=== PATIENT | female | born 1990 | race Caucasian/White ===

== ENCOUNTER 2019-12-12 12:25 | Emergency (ER) | payer BC, SELFPAY ==
[2019-12-12 12:52] VITALS: BP 117/75; PULSE 77; RESP 16; TEMP 36.7; O2SAT 98
--- NOTE | 2019-12-12 13:10 | ED.URI ---
HPI - URI/Sore Throat General Chief Complaint: Upper Respiratory Infection Stated Complaint: Cold/Flu symptoms Time Seen by Provider: 12/12/19 13:10 Source: patient and RN notes reviewed Mode of arrival: ambulatory Limitations: no limitations History of Present Illness HPI Narrative: 29-year-old female who presents to [facility] care with complaints of sore throat, nasal congestion and drainage, chills, and body aches since Monday and low grade temperature. Today cough with nausea and diarrhea, 101F fever noted this morning. 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 Patient states she has been taking ibuprofen and DayQuil for her symptoms. Patient denies any ear pain or acute shortness of breath, denies any wheezing, admits to tobacco abuse of 1/2 ppd of cigarettes daily for 15 years. MD elicited complaint: fever, cough, sore throat, rhinorrhea and nasal congestion Onset (ago): day(s) (2) Consistency: progressively worsening Able to tolerate fluids by mouth: Yes Exacerbating factors: swallowing Treatments prior to arrival: ibuprofen and other (Dauquil) Related Data Home Medications Medication Instructions Recorded Confirmed etonogestrel-ethinyl estradiol 1 vag ring VAGINAL ONCE 12/12/19 12/12/19 [NuvaRing] Allergies Allergy/AdvReac Type Severity Reaction Status Date / Time latex Allergy Rash Verified 12/12/19 13:32 clindamycin AdvReac Headache Verified 12/12/19 13:31 Penicillins AdvReac MOUTH SORES Verified 12/12/19 13:34 Review of Systems Review of Systems: Narrative: CONSTITUTIONAL: reports fever, chills, or sweats. EYES: Denies visual changes, redness, or discharge. ENT: Positive rhinorrhea, congestion, sore throat, no otalgia. CARDIOVASCULAR: Denies chest pain, palpitations, or edema. RESPIRATORY Positive cough denies dyspnea. GASTROINTESTINAL: Denies abdominal pain,reports nausea, and diarrhea. GENITOURINARY: Denies dysuria or hematuria. SKIN: Denies rash or itching. MUSCULOSKELETAL: Denies back pain, joint pain, bodyaches NEUROLOGIC: Denies headache, numbness, or weakness. PSYCHIATRIC: Denies anxiety or depression. 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 There is no relevant family history pertinent to the presenting complaint Exam Narrative: Exam Narrative: GENERAL ill-appearing, well-nourished, and in no acute distress. HEAD: Normocephalic, atraumatic. EYES: PERRLA and EOMI. ENT: Nares red wit rhinorrhea no epistaxis. Mucous membranes moist.TM's normal with goodlight reflex, throat red with no lesions or exudates,tonsil swelling, post nasal drainage noted NECK: Supple, lymphadenopathy CHEST: Clear to auscultation. No respiratory distress.dry cough SAO2 98% on room air HEART: Regular rate and rhythm. No murmur heard. Normal peripheral pulses. ABDOMEN: Soft, nontender to palpation, nondistended, normal active bowel sounds. EXTREMITIES: Normal range of motion. No edema. SKIN: Warm, dry, no rash. NEURO: No focal deficits. Alert and oriented x3. Course Vital Signs Vital signs: Vital Signs Temperature 36.7 C 12/12/19 12:52 Pulse Rate 77 12/12/19 12:52 R
== END 2019-12-12 14:03 | disposition home or self-care (01) ==
PROVIDERS: Emergency Provider Registered Nurse
DX: J03.90 Acute tonsillitis, unspecified (principal); R05 Cough; R11.0 Nausea; R19.7 Diarrhea, unspecified; F17.210 Nicotine dependence, cigarettes, uncomplicated
CPT/HCPCS: 87081; 87804; 87880; 99213; G0463

== ENCOUNTER 2021-02-05 11:06 | Outpatient (CLI) | payer BC, SELFPAY ==
[2021-02-05 11:32] VITALS: BP 130/79; PULSE 91; PULSE 93; TEMP 36.2
--- NOTE | 2021-02-05 11:41 | PC.NURSE ---
Dr. Hinkle informed of pt's symptoms from this week, BP 131/79, 2+ pitting edema in ankles, FHT's 145 with 10 beat accels at 22 2/7 wks gestation. OK to discharge to home. Pt to be seen in office next week if she hasn't been seen recently.
[2021-02-05 11:52] VITALS: BP 130/79; PULSE 93
== END 2021-02-05 12:07 | disposition home or self-care (01) ==
LOC: ANHOBOP 11:11 → ANHOBPP 11:11
PROVIDERS: PCP Nurse Practitioner Family; Visit Provider Obstetrics & Gynecology
DX: O13.9 Gestational [pregnancy-induced] hypertension without significant proteinuria, unspecified trimester (principal); R51.9 Headache, unspecified; Z3A.00 Weeks of gestation of pregnancy not specified
CPT/HCPCS: 59025; 99199

== ENCOUNTER 2021-05-03 15:19 | Outpatient (RCR) | payer BC, SELFPAY ==
[2021-03-15 14:51] LABS: Basophils Percent Auto 0.2 % (0.2-1.2); Eosinophils Percent Auto 0.2 % (0-4.4); Hematocrit 32.9 % (37.0-47.0); Hemoglobin 11.3 g/dL (12.0-15.0); Immature Granulocyte Absolute 0.22 K/mm3 (0.00-0.031); Immature Granulocyte Percent A 1.4 % (0-0.5); Lymphocytes Absolute Auto 2.51 K/mm3 (0.9-3.2); Lymphocytes Percent Auto 15.6 % (18.3-44.2); Mean Corpuscular HGB Conc 34.3 g/dl (32-36); Mean Corpuscular Hemoglobin 31.7 pg (26-34); Mean Corpuscular Volume 92.2 fl (80-100); Mean Platelet Volume 10.7 fl (7.4-10.4); Monocytes Absolute Auto 1.2 K/mm3 (0.1-0.6); Monocytes Percent Auto 7.3 % (2.6-8.5); Neutrophils Absolute Auto 12.1 K/mm3 (1.3-6.7); Neutrophils Percent Auto 75.3 % (45.5-73.1); Platelet Count Result 222 k/mm3 (150-375); Red Blood Count 3.57 M/mm3 (4.2-5.4); Red Cell Distribution Width 12.7 % (11.5-14.5); White Blood Count 16.1 K/mm3 (4.5-10.0)
[2021-03-15 15:00] LABS: Alanine Aminotransferase 11 U/L (4-35); Albumin Level 3.5 g/dL (3.5-5.1); Alkaline Phosphatase 115 U/L (38-126); Anion Gap 8 mmol/L (8-16); Aspartate Amino Transferase 18 U/L (14-36); Bilirubin,Total 0.2 mg/dL (0.2-1.3); Blood Urea Nitrogen 6 mg/dL (7-17); Calcium 8.8 mg/dL (8.4-10.2); Carbon Dioxide 20 mmol/L (22-30); Chloride 108 mmol/L (98-107); Estimated Glomerular Filt Rate > 60; Glucose 104 mg/dL (65-105); Potassium 3.3 mmol/L (3.4-5.0); Sodium 136 mmol/L (137-145); Uric Acid 3.5 mg/dL (2.5-7.5)
[2021-03-15 15:07] VITALS: PULSE 85
--- NOTE | 2021-03-18 01:14 | PC.NURSE ---
Pt stated on admission that she had decreased movement all day and had not felt moment for past 2 hours. Pt began to feel movement after arrival with PO hydration. Pt vital signs as noted. Pt states she has appt with Maternal Medicine for elevated blood pressures. Has been getting NST's for same.
[2021-03-22 14:48] LABS: Hematocrit 32.3 % (37.0-47.0); Hemoglobin 11.2 g/dL (12.0-15.0); Mean Corpuscular HGB Conc 34.7 g/dl (32-36); Mean Corpuscular Hemoglobin 31.5 pg (26-34); Mean Platelet Volume 10.2 fl (7.4-10.4); Platelet Count Result 223 k/mm3 (150-375); Red Blood Count 3.55 M/mm3 (4.2-5.4); Red Cell Distribution Width 12.3 % (11.5-14.5)
[2021-03-22 15:00] LABS: Alanine Aminotransferase 13 U/L (4-35); Albumin Level 3.5 g/dL (3.5-5.1); Alkaline Phosphatase 115 U/L (38-126); Anion Gap 9 mmol/L (8-16); Aspartate Amino Transferase 23 U/L (14-36); Bilirubin,Total 0.2 mg/dL (0.2-1.3); Blood Urea Nitrogen 7 mg/dL (7-17); Calcium 9.2 mg/dL (8.4-10.2); Carbon Dioxide 20 mmol/L (22-30); Chloride 106 mmol/L (98-107); Estimated Glomerular Filt Rate > 60; Glucose 74 mg/dL (65-105); Potassium 3.2 mmol/L (3.4-5.0); Sodium 135 mmol/L (137-145); Uric Acid 3.4 mg/dL (2.5-7.5)
[2021-03-22 16:08] VITALS: BP 127/85; PULSE 106
[2021-03-29 15:31] LABS: Hematocrit 32.7 % (37.0-47.0); Hemoglobin 11.2 g/dL (12.0-15.0); Mean Corpuscular HGB Conc 34.3 g/dl (32-36); Mean Corpuscular Hemoglobin 31.5 pg (26-34); Mean Corpuscular Volume 92.1 fl (80-100); Mean Platelet Volume 10.9 fl (7.4-10.4); Platelet Count Result 217 k/mm3 (150-375); Red Blood Count 3.55 M/mm3 (4.2-5.4); Red Cell Distribution Width 12.5 % (11.5-14.5); White Blood Count 15.8 K/mm3 (4.5-10.0)
[2021-03-29 15:40] LABS: Alanine Aminotransferase 14 U/L (4-35); Albumin Level 3.6 g/dL (3.5-5.1); Alkaline Phosphatase 130 U/L (38-126); Anion Gap 6 mmol/L (8-16); Aspartate Amino Transferase 24 U/L (14-36); Bilirubin,Total 0.1 mg/dL (0.2-1.3); Blood Urea Nitrogen 5 mg/dL (7-17); Calcium 8.4 mg/dL (8.4-10.2); Carbon Dioxide 21 mmol/L (22-30); Chloride 107 mmol/L (98-107); Estimated Glomerular Filt Rate > 60; Glucose 95 mg/dL (65-105); Potassium 3.5 mmol/L (3.4-5.0); Sodium 134 mmol/L (137-145); Uric Acid 2.9 mg/dL (2.5-7.5)
[2021-03-29 16:33] VITALS: BP 126/86; PULSE 93
[2021-04-05 15:02] LABS: Hematocrit 30.4 % (37.0-47.0); Hemoglobin 10.9 g/dL (12.0-15.0); Mean Corpuscular HGB Conc 35.9 g/dl (32-36); Mean Corpuscular Hemoglobin 31.8 pg (26-34); Mean Corpuscular Volume 88.6 fl (80-100); Mean Platelet Volume 10.3 fl (7.4-10.4); Platelet Count Result 216 k/mm3 (150-375); Red Blood Count 3.43 M/mm3 (4.2-5.4); Red Cell Distribution Width 12.5 % (11.5-14.5); White Blood Count 15.5 K/mm3 (4.5-10.0)
[2021-04-05 15:10] LABS: Alanine Aminotransferase 11 U/L (4-35); Albumin Level 3.4 g/dL (3.5-5.1); Alkaline Phosphatase 129 U/L (38-126); Anion Gap 5 mmol/L (8-16); Aspartate Amino Transferase 18 U/L (14-36); Bilirubin,Total 0.1 mg/dL (0.2-1.3); Blood Urea Nitrogen 4 mg/dL (7-17); Calcium 8.7 mg/dL (8.4-10.2); Carbon Dioxide 20 mmol/L (22-30); Chloride 108 mmol/L (98-107); Estimated Glomerular Filt Rate 53; Glucose 108 mg/dL (65-105); Potassium 3.3 mmol/L (3.4-5.0); Sodium 133 mmol/L (137-145); Uric Acid 3.5 mg/dL (2.5-7.5)
[2021-04-05 15:51] LABS: Estimated Glomerular Filt Rate > 60
[2021-04-05 16:00] VITALS: BP 126/76; PULSE 87
[2021-04-12 14:53] LABS: Basophils Percent Auto 0.2 % (0.2-1.2); Eosinophils Absolute Auto 0.1 K/mm3 (0-0.3); Eosinophils Percent Auto 0.4 % (0-4.4); Hematocrit 32.8 % (37.0-47.0); Hemoglobin 11.4 g/dL (12.0-15.0); Immature Granulocyte Absolute 0.21 K/mm3 (0.00-0.031); Immature Granulocyte Percent A 1.3 % (0-0.5); Lymphocytes Absolute Auto 2.34 K/mm3 (0.9-3.2); Lymphocytes Percent Auto 14.5 % (18.3-44.2); Mean Corpuscular HGB Conc 34.8 g/dl (32-36); Mean Corpuscular Hemoglobin 31.7 pg (26-34); Mean Corpuscular Volume 91.1 fl (80-100); Mean Platelet Volume 10.6 fl (7.4-10.4); Monocytes Absolute Auto 1.1 K/mm3 (0.1-0.6); Monocytes Percent Auto 6.8 % (2.6-8.5); Neutrophils Absolute Auto 12.3 K/mm3 (1.3-6.7); Neutrophils Percent Auto 76.8 % (45.5-73.1); Platelet Count Result 226 k/mm3 (150-375); Red Cell Distribution Width 12.5 % (11.5-14.5); White Blood Count 16.1 K/mm3 (4.5-10.0)
[2021-04-12 15:06] LABS: Alanine Aminotransferase 12 U/L (4-35); Albumin Level 3.6 g/dL (3.5-5.1); Alkaline Phosphatase 148 U/L (38-126); Anion Gap 8 mmol/L (8-16); Aspartate Amino Transferase 20 U/L (14-36); Bilirubin,Total 0.3 mg/dL (0.2-1.3); Blood Urea Nitrogen 6 mg/dL (7-17); Calcium 9.1 mg/dL (8.4-10.2); Carbon Dioxide 19 mmol/L (22-30); Chloride 108 mmol/L (98-107); Estimated Glomerular Filt Rate > 60; Glucose 121 mg/dL (65-105); Potassium 3.4 mmol/L (3.4-5.0); Sodium 135 mmol/L (137-145); Uric Acid 4.5 mg/dL (2.5-7.5)
[2021-04-12 16:22] VITALS: BP 130/81; PULSE 104
[2021-04-19 15:09] VITALS: BP 137/84; PULSE 104
[2021-04-19 15:24] LABS: Hematocrit 31.4 % (37.0-47.0); Hemoglobin 10.9 g/dL (12.0-15.0); Mean Corpuscular HGB Conc 34.7 g/dl (32-36); Mean Corpuscular Hemoglobin 31.5 pg (26-34); Mean Corpuscular Volume 90.8 fl (80-100); Mean Platelet Volume 10.4 fl (7.4-10.4); Platelet Count Result 214 k/mm3 (150-375); Red Blood Count 3.46 M/mm3 (4.2-5.4); Red Cell Distribution Width 12.7 % (11.5-14.5); White Blood Count 16.6 K/mm3 (4.5-10.0)
[2021-04-19 15:37] LABS: Alanine Aminotransferase 11 U/L (4-35); Albumin Level 3.5 g/dL (3.5-5.1); Alkaline Phosphatase 145 U/L (38-126); Anion Gap 6 mmol/L (8-16); Aspartate Amino Transferase 18 U/L (14-36); Bilirubin,Total 0.2 mg/dL (0.2-1.3); Blood Urea Nitrogen 6 mg/dL (7-17); Calcium 9.5 mg/dL (8.4-10.2); Carbon Dioxide 21 mmol/L (22-30); Chloride 107 mmol/L (98-107); Estimated Glomerular Filt Rate > 60; Glucose 102 mg/dL (65-105); Potassium 3.3 mmol/L (3.4-5.0); Sodium 134 mmol/L (137-145); Uric Acid 3.8 mg/dL (2.5-7.5)
[2021-04-26 14:57] LABS: Hematocrit 31.7 % (37.0-47.0); Mean Corpuscular HGB Conc 34.7 g/dl (32-36); Mean Corpuscular Hemoglobin 31.3 pg (26-34); Mean Corpuscular Volume 90.1 fl (80-100); Mean Platelet Volume 10.7 fl (7.4-10.4); Platelet Count Result 227 k/mm3 (150-375); Red Blood Count 3.52 M/mm3 (4.2-5.4); Red Cell Distribution Width 12.5 % (11.5-14.5); White Blood Count 14.8 K/mm3 (4.5-10.0)
[2021-04-26 15:08] LABS: Alanine Aminotransferase 12 U/L (4-35); Albumin Level 3.5 g/dL (3.5-5.1); Alkaline Phosphatase 163 U/L (38-126); Anion Gap 6 mmol/L (8-16); Aspartate Amino Transferase 18 U/L (14-36); Bilirubin,Total 0.3 mg/dL (0.2-1.3); Blood Urea Nitrogen 5 mg/dL (7-17); Calcium 8.8 mg/dL (8.4-10.2); Carbon Dioxide 22 mmol/L (22-30); Chloride 105 mmol/L (98-107); Estimated Glomerular Filt Rate > 60; Glucose 104 mg/dL (65-110); Potassium 3.3 mmol/L (3.4-5.0); Sodium 133 mmol/L (137-145); Uric Acid 3.5 mg/dL (2.5-7.5)
[2021-04-26 15:18] VITALS: BP 135/84; PULSE 96
[2021-05-03 15:36] LABS: Basophils Percent Auto 0.2 % (0.2-1.2); Eosinophils Absolute Auto 0.1 K/mm3 (0-0.3); Eosinophils Percent Auto 0.3 % (0-4.4); Hematocrit 33.5 % (37.0-47.0); Hemoglobin 11.7 g/dL (12.0-15.0); Immature Granulocyte Absolute 0.14 K/mm3 (0.00-0.031); Lymphocytes Percent Auto 18.4 % (18.3-44.2); Mean Corpuscular HGB Conc 34.9 g/dl (32-36); Mean Corpuscular Hemoglobin 31.5 pg (26-34); Mean Corpuscular Volume 90.1 fl (80-100); Mean Platelet Volume 10.5 fl (7.4-10.4); Monocytes Absolute Auto 1.2 K/mm3 (0.1-0.6); Monocytes Percent Auto 8.3 % (2.6-8.5); Neutrophils Absolute Auto 10.6 K/mm3 (1.3-6.7); Neutrophils Percent Auto 71.8 % (45.5-73.1); Platelet Count Result 208 k/mm3 (150-375); Red Blood Count 3.72 M/mm3 (4.2-5.4); Red Cell Distribution Width 12.6 % (11.5-14.5); White Blood Count 14.7 K/mm3 (4.5-10.0)
[2021-05-03 15:48] LABS: Alanine Aminotransferase 14 U/L (4-35); Albumin Level 3.5 g/dL (3.5-5.1); Alkaline Phosphatase 170 U/L (38-126); Anion Gap 5 mmol/L (8-16); Aspartate Amino Transferase 22 U/L (14-36); Bilirubin,Total 0.3 mg/dL (0.2-1.3); Blood Urea Nitrogen 5 mg/dL (7-17); Calcium 9.3 mg/dL (8.4-10.2); Carbon Dioxide 21 mmol/L (22-30); Chloride 107 mmol/L (98-107); Estimated Glomerular Filt Rate > 60; Glucose 80 mg/dL (65-110); Potassium 3.9 mmol/L (3.4-5.0); Sodium 133 mmol/L (137-145)
[2021-05-03 15:49] LABS: Uric Acid 3.9 mg/dL (2.5-7.5)
[2021-05-03 15:59] VITALS: BP 134/86; PULSE 89
== END 2021-05-17 10:26 | disposition home or self-care (01) ==
LOC: ANHOBOP 15:19
PROVIDERS: PCP Nurse Practitioner Family; Visit Provider Obstetrics & Gynecology
DX: O16.2 Unspecified maternal hypertension, second trimester (principal); Z3A.27 27 weeks gestation of pregnancy; O36.8130 Decreased fetal movements, third trimester, not applicable or unspecified; Z3A.28 28 weeks gestation of pregnancy; O26.893 Other specified pregnancy related conditions, third trimester; R03.0 Elevated blood-pressure reading, without diagnosis of hypertension; Z3A.29 29 weeks gestation of pregnancy; Z3A.30 30 weeks gestation of pregnancy; Z3A.31 31 weeks gestation of pregnancy; Z3A.32 32 weeks gestation of pregnancy; Z3A.33 33 weeks gestation of pregnancy; Z3A.34 34 weeks gestation of pregnancy
CPT/HCPCS: 36415; 59025; 80053; 82565; 84550; 85025; 85027

== ENCOUNTER 2021-05-05 14:54 | Inpatient (IN) | payer BC, SELFPAY ==
[2021-05-05] VITALS (95 sets, daily range): BP systolic 122–160; BP diastolic 71–99; PULSE 77–113; RESP 16–18; TEMP 37–37.3; O2SAT 92–98; BMI 30.2
--- NOTE | 2021-05-05 14:54 | LDADM ---
This patient, Toño Figueroa, was admitted to Labor/Delivery/Recovery 109 on 05/05/21 at 14:54. Plans for labor, pain management and were discussed with patient. Patient/family oriented to hospital policies and general routines including ID bracelet, bed and alarms, visiting hours, pain management, procedures, bathroom and other care routines, personal items, smoking policy, room service/diet and guest tray routines, security routines, and visiting hours. Patient/Family are encouraged to report perceived risks to care and to ask questions if they do not understand what they are told or what they should do. See OBIX for further documentation.
--- OUTSIDE RECORDS SUMMARY | 2021-05-05 15:01 | XMS_ITS | Encounter Summary ---
:1990 Author Care Team Providers Name Role Phone Toney Saldaña MD Poultry Picking Machine Tender [phone] Reason for Visit return OB visit Assessment and Plan 1. Pre-eclampsia Discussion Note: None recorded.Patient educational handouts: No information available. Plan of Care Reminders Provider Appointments Procedure 10 Kenrick Ibanez MD 05/19/2021 4:00PM Lab None ? ? recorded. Referral None ? ? recorded. Procedures None ? ? recorded. Surgeries None ? ? recorded. Imaging None ? ? recorded. Medications Name Start Date ? ? ferrous sulfate 325 mg (65 mg iron) tablet ? Take 1 tablet every day by oral route. Purelax 17 gram/dose oral powder ? MIX 17 GRAMS WITH LIQUID AND DRINK ONCE DAILY FOR 30 DOSES FOR CONSTIPATION sertraline 50 mg tablet ? TAKE 1 TABLET BY MOUTH EVERY DAY Stool Softener 100 mg capsule ? TAKE 1 CAPSULE BY MOUTH TWICE A DAY FOR 30 DOSES FOR CONSTIPATION Notes: PNV Medications Administered None recorded. Vitals Weight Blood Pressure 169 lbs 142/92 mm[Hg] Results Lab Results None recorded. Allergies Code Code System Name Reaction Severity Onset 723 RxNorm
--- OUTSIDE RECORDS SUMMARY | 2021-05-05 15:01 | XMS_ITS ---
:1990 Author Care Team Providers Name Role Phone DANYELLE JACKSON MD Infection Control Manager [phone] Allergies Code Code System Name Reaction Severity Status Onset 723 RxNorm Amoxicillin ? ? Active ? 2582 RxNorm Clindamycin ? ? Active ? Latex, Natural Facial ? Active ? Rubber Swelling Penicillins Other Moderate to Active ? Severe 078459 RxNorm [place] ? ? Deactivated ? Medications Name Status Start Date Stop Date ? ? acetaminophen 300 mg-codeine 30 mg Completed ? 05/02/2018 tablet albuterol sulfate HFA 90 mcg/actuation aerosol inhaler Active ? Not available INHALE 2 PUFFS BY MOUTH TWICE DAILY azithromycin 500 mg tablet Completed ? 05/01 benzonatate 200 mg capsule Active ? Not a vailable TAKE 1 CAPSULE BY MOUTH THREE TIMES A DAY NEEDED cephalexin 500 mg capsule Completed ? 2020 cephalexin 500 mg tablet Completed ? 019 Take 1 tablet 3 times a day by oral route. Chantix Continuing Month Box 1 mg tablet Completed ? 10/05/2020 Take 1 tablet twice a day by oral route. Chantix Starting Month Box 0.5 mg (11)-1 mg (42) tablets in dose pack Active ? Not available TAKE DIRECTED ON PACKAGE ciprofloxacin 500 mg tablet Active ? Not available TAKE 1 TABLET BY MOUTH EVERY 12 HOURS FOR 7 DAYS Claritin 10 mg tablet Completed ? 10/05/2020 Take 1 tablet every day by oral route. clindamycin HCl 300 mg capsule Completed ? 0 05/01/2019
--- OUTSIDE RECORDS SUMMARY | 2021-05-05 15:01 | XMS_ITS | Encounter Summary ---
:1990 Author Care Team Providers Name Role Phone Toney Saldaña MD Package Sorter [phone] Reason for Visit return OB visit Assessment and Plan 1. Routine care ? streptococcus group B, cul ture, unspecified specimen Discussion Note: None recorded.Patient educational handouts: No information available. Plan of Care Reminders Provider Appointments Procedure 10 Kenrick Ibanez, 05/19/2021 4:00PM Lab Streptococcus [facility] Group B, Culture, 04/27/2021 Hospital (Lab) Unspecified Specimen Referral None recorded. ? ? Procedures None recorded. ? ? Surgeries None recorded. ? ? Imaging None recorded. ? ? Medications Name Start Date ? ? ferrous [...] recorded. Vitals Weight Blood Pressure 169 lbs 134/94 mm[Hg] Results
--- OUTSIDE RECORDS SUMMARY | 2021-05-05 15:01 | XMS_ITS ---
:1990 Author Care Team Providers Name Role Phone Toney Saldaña Primary Care Provider Unavailable Allergies Code Code System Name Reaction Severity Status Onset 723 RxNorm Amoxicillin ? ? Active ? 2582 RxNorm Clindamycin ? ? Active ? Latex, Natural Facial ? Active ? Rubber Swelling Penicillins Other Moderate to Active ? Severe 183695 RxNorm [place] ? ? Deactivated ? Medications Name Status Start Date Stop Date ? ? acetaminophen 300 mg-codeine 30 mg Completed ? 05/02/2018 tablet albuterol sulfate HFA 90 mcg/actuation aerosol inhaler Active ? Not available INHALE 2 PUFFS BY MOUTH TWICE DAILY azithromycin 500 mg tablet Completed ? 05/01 azithromycin 500 mg tabs Completed ? 020 benzonatate 200 mg capsule Active ? Not a vailable cephalexin 500 mg caps Completed ? 0 cephalexin 500 mg capsule Completed ? 2018 TAKE 1 CAPSULE BY MOUTH THREE TIMES A DAY cephalexin 500 mg tablet Completed ? 019 Take 1 tablet 3 times a day by oral route. Chantix Continuing Month Box 1 mg tablet Completed ? 10/05/2020 Take 1 tablet twice a day by oral route. Chantix Starting Month Box 0.5 mg (11)-1 mg (42) tablets in dose pack Completed ? 10/05/2020 TAKE DIRECTED ON PACKAGE ciprofloxacin 500 mg tablet Completed ? 04/2020 Claritin 10 mg tablet Completed ? 10/05/2020 Take 1 tablet every day
--- OUTSIDE RECORDS SUMMARY | 2021-05-05 15:01 | XMS_ITS | Encounter Summary ---
:1990 Author Care Team Providers Name Role Phone Toney Saldaña MD Multifocal Button Generator [phone] Reason for Visit return OB visit Assessment and Plan 1. Routine care ? US, obstetric, follow-up 2. Tachycardia ? TSH, serum or plasma ? electrocardiogram ? CMP, serum or plasma ? CBC w/ auto diff ? T4, free, serum ? T3, free, serum or plasma ? protein:creatinine ratio, urine ? ldh, serum or plasma ? uric acid, serum or plasma Discussion Note: None recorded.Patient educational handouts: No information available. Plan of Care Reminders Provider Appointments Procedure 10 Kenrikc Ibanez MD 05/19/2021 4:00PM Lab TSH, Serum or Gat [facility] Plasma 02/11/2021 [facility] (Lab) ? CMP, Serum or Gat [facility] Plasma 02/11/2021 [facility] (Lab) ? CBC W/ Auto Diff [facility] 02/11/2021 [facility] (Lab) ? T4, Free, Serum [place] [facility] 02/11/2021 [facility] (Lab) ? T3, Free, Serum or [facility]
--- OUTSIDE RECORDS SUMMARY | 2021-05-05 15:01 | XMS_ITS | Encounter Summary ---
:1990 Author Care Team Providers Name Role Phone Toney Saldaña MD Satellite Dish Installer [phone] Reason for Visit return OB visit Assessment and Plan 1. Routine care ? glucose tolerance test, ge stational, 1-hour ? CBC ? HIV (1+2) Ab screen, serum 2. Mild pre-eclampsia ? maternal & medicine referral Discussion Note: None recorded.Patient educational handouts: No information available. Plan of Care Reminders Provider Appointments Procedure 10 Kenrick Ibanez MD 05/19/2021 4:00PM Lab Glucose [facility] Tolerance Test, [facility]/2021 [facility] (Lab) Gestational, 1-Hour ? Cbc [facility] 03[facility] (Lab) ? HIV (1+2) Ab [place] [facility] Screen, Serum 03/11/2021 Hospital (Lab) Referral [facility] Referral [facility] Procedures None ? ? recorded. Surgeries None ? ? recorded. Imaging None ? ? recorded. Medications Name Start Date ? ? ferrous sulfat
--- OUTSIDE RECORDS SUMMARY | 2021-05-05 15:01 | XMS_ITS | Encounter Summary ---
:1990 Author Care Team Providers Name Role Phone Toney Saldaña MD Adjuster Electrical Contacts [phone] Reason for Visit return OB visit Assessment and Plan 1. Diabetes mellitus screening ? glucose tolerance test, [facility], 3-hour 2. Pre-eclampsia ? US, obstetric, 3rd trimest er - growth 3. Anemia of ? ferrous sulfate 325 mg (65 mg iron) tablet Discussion Note: None recorded.Patient educational handouts: No information available. Plan of Care Reminders Provider Appointments Procedure 10 Kenrick Ibanez MD 05/19/2021 4:00PM Lab Glucose [facility] Tolerance Test, 03/25/2021 Hospital (Lab) Gestational, 3-Hour Referral None ? ? recorded. Procedures None ? ? recorded. Surgeries None ? ? recorded. Imaging , [facility] Obstetric, 3Rd 03/25/2021 Center Trimester Medications Name Start Date ? ? ferrous [...]
--- OUTSIDE RECORDS SUMMARY | 2021-05-05 15:01 | XMS_ITS | Encounter Summary ---
:1990 Author Care Team Providers Name Role Phone Toney Saldaña MD Promotions Associate [phone] Reason for Visit return OB visit Assessment [...] Administered None recorded. Vitals Weight Blood Pressure 165.4 lbs 120/82 mm[Hg] Results Lab Results None recorded. Allergies Code Code System Name Reaction Severity Onset 723 RxNorm
[2021-05-05 16:00] LABS: Basophils Percent Auto 0.2 % (0.2-1.2); Eosinophils Absolute Auto 0.1 K/mm3 (0-0.3); Eosinophils Percent Auto 0.3 % (0-4.4); Hematocrit 34.2 % (37.0-47.0); Hemoglobin 11.8 g/dL (12.0-15.0); Immature Granulocyte Absolute 0.19 K/mm3 (0.00-0.031); Immature Granulocyte Percent A 1.1 % (0-0.5); Lymphocytes Absolute Auto 2.94 K/mm3 (0.9-3.2); Lymphocytes Percent Auto 16.7 % (18.3-44.2); Mean Corpuscular HGB Conc 34.5 g/dl (32-36); Mean Corpuscular Hemoglobin 31.1 pg (26-34); Mean Platelet Volume 10.9 fl (7.4-10.4); Monocytes Absolute Auto 1.5 K/mm3 (0.1-0.6); Monocytes Percent Auto 8.5 % (2.6-8.5); Neutrophils Absolute Auto 12.9 K/mm3 (1.3-6.7); Neutrophils Percent Auto 73.2 % (45.5-73.1); Platelet Count Result 219 k/mm3 (150-375); Red Cell Distribution Width 12.7 % (11.5-14.5); White Blood Count 17.6 K/mm3 (4.5-10.0)
[2021-05-05] MEDS: DINOPROSTONE 10 MG VAG INSERT VAGINAL (16:07)
[2021-05-05 16:12] LABS: Alanine Aminotransferase 15 U/L (4-35); Albumin Level 3.6 g/dL (3.5-5.1); Alkaline Phosphatase 181 U/L (38-126); Anion Gap 4 mmol/L (8-16); Aspartate Amino Transferase 20 U/L (14-36); Bilirubin,Total 0.3 mg/dL (0.2-1.3); Blood Urea Nitrogen 5 mg/dL (7-17); Calcium 8.9 mg/dL (8.4-10.2); Carbon Dioxide 21 mmol/L (22-30); Chloride 108 mmol/L (98-107); Estimated CRCL calculation 96 ml/min; Estimated Glomerular Filt Rate > 60; Glucose 75 mg/dL (65-110); Potassium 3.8 mmol/L (3.4-5.0); Sodium 133 mmol/L (137-145); Uric Acid 3.9 mg/dL (2.5-7.5)
[2021-05-05] MEDS: BETAMETHASONE SOD PHOS/ACETATE 30 MG/5 ML VIAL 12 MG IM (16:26)
--- NOTE | 2021-05-05 18:38 | PM.IMHP ---
H&P: HPI History of Present Illness Date/Time: 05/05/21 17:58 Toño is a 31yo G 2 P0010 @ 35.0wks (MARIE 06/09/21) who presents to L&D for IOL. She has had pre-eclampsia w/o severe features since 27wks. She has had regular care and MFM co-management. She reported to clinic for routine care today and had two severe range BPs >15minutes apart. She occasionally checks her BP and has been persistently having BPs in 150's/90's. She recently had a growth US w/ MFM and is also now IUGR but has normal dopplers. She has been having routine testing which has been reassuring. She denies any MOREIRA, vision changes, CP, SOB, or RUQ pain. Good movement, irregular contractions. No VB, LOF. Her has been complicated by: - Pre-eclampsia now w/ severe features based on severe range BP's - IUGR; EFW @ 5%ile, normal dopplers - Elevated glucola, refused 3hr OGTT; has intermittently checked BS - Anxiety; on zoloft 50mg daily - Anemia on iron - Tobacco abuser - Itching; bile acids pending Chief Complaint: Severe range BP's in office Review of Systems Review of Systems: All systems reviewed & are unremarkable except as noted in HPI and below (HPI) [facility] Past Medical History Medical History IBS (irritable bowel syndrome) Surgical History Surgical History H/O local excision of skin lesion Social History Social History Smoking packs per day: 0.5 Smoking cigarettes per day: 10.0 Years smoked: 15 Smoking pack-years: 7.50 Smoking status: Current every day smoker Tobacco type: cigarettes Second hand tobacco smoke exposure: Yes 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 Gender identity (if verbalized by the patient): Female Sexual Orientation (if Verbalized by the Patient): Straight or Heterosexual Spiritual care concerns: No Meds Home Medications and Allergies Home Medications Medication Instructions Recorded Confirmed Type PNV cmb#95-ferrous fumarate-FA 1 tablet PO DAILY 04/30/21 07/28/21 History [] sertraline 50 mg PO HS 02/05/21 05/05/21 History Allergies Allergy/AdvReac Type Severity Reaction Status Date / Time latex Allergy Rash Verified 12/12/19 13:32 clindamycin AdvReac Headache Verified 12/12/19 13:31 Penicillins AdvReac MOUTH SORES Verified 12/12/19 13:34 Vital Signs Vital Signs - 24 hr 05/05/21 15:27 05/05/21 15:30 05/05/21 16:30 Pulse Rate 99 100 87 Blood Pressure 154/97 H 150/93 H 151/90 H 05/05/21 17:00 05/05/21 17:30 Pulse Rate 86 86 Blood Pressure 147/92 H 152/87 H Exam Const: General: cooperative, healthy appearing, comfortable and no acute distress Resp: Effort & Inspection: normal respiratory effort and able to speak in complete sentences Cardio: Rate: regular rate GI: Inspection: non-distended GI Palp: No abdominal tenderness and Yes Soft to palpation : Other: FHT's: 130's/mod terrance/ + accels/ no decels - cat 1 TOCO: irregular ctxs Cervix: 1/50/-3 Membranes: intact Presentation: cephalic Skin: General skin exam: normal color Neuro: General: patient oriented x3 Extrem: General: normal to inspection Psych: Appearance: grossly normal Affect: normal affect Attitude: cooperative H&P: Results Labs Labs: Short CBC 05/05/21 Range/Units 15:53 WBC 17.6 H (4.5-10.0) K/mm3 Hgb 11.8 L (12.0-15.0) g/dL Hct 34.2 L (37.0-47.0) % Plt Count 219 (150-375) k/mm3 BMP 05/05/21 15:53 Sodium 133 L Potassium 3.8 Chloride 108 H Carbon Dioxide 21 L BUN 5 L Creatinine 0.70 Glucose 75 Calcium 8.9 Liver Function 05/05/21 Range/Units 15:53 Total Bilirubin 0.3 (0.2-1.3) mg/dL AST 20 (14-36) U/L ALT 15 (4-35) U/L Alkaline Phosphatase 181 H (38-126) U/L Albumin 3.6 (3.5-5.1) g/dL
--- NOTE | 2021-05-05 18:39 | WPDHPUPDATE1 ---
History and Physical Update Update Date/Time: 05/05/21 18:39 History and Physical has been reviewed, including an updated exam of the patient. There are NO changes in the patient's condition. Risks, benefits, and alternatives have been discussed and questions answered. Patient agrees to proceed with procedure.
[2021-05-05] MEDS: LACTATED RINGERS 1,000 ML 125 ML IV CONT (18:43)
[2021-05-05] MEDS: MAGNESIUM SULF 4 GM/WATER100ML 4 GM/100 ML BAG IVPB (18:44)
[2021-05-05] MEDS: MAGNESIUM SULF 20GM/WATER500ML 500 ML 50 MG IV CONT (19:14)
[2021-05-06] VITALS (203 sets, daily range): BP systolic 90–161; BP diastolic 60–98; PULSE 63–112; RESP 16–18; TEMP 36.6–37.3; O2SAT 78–99
[2021-05-06] MEDS: MAGNESIUM SULF 20GM/WATER500ML 500 ML 50 MG IV CONT (05:05)
[2021-05-06] MEDS: LACTATED RINGERS 1,000 ML 125 ML IV CONT ×2 (07:29→15:29)
--- NOTE | 2021-05-06 07:31 | PM.OBPNLAB ---
Pain Control Date/time seen: 05/06/21 07:09 Pain control: tolerating well Comments: pts BPs in normal to mild range overnight; pt asymptomatic Pelvic Exam Dilation (cm): 1 Effacement (%): 50 station: -3 Amniotic membrane status: Intact Contractions Monitor mode: External Contraction frequency: 6 (-8) Contraction pattern: Irregular Status status: Category l Comments: with moments of minimal variability Assessment and Plan Assessment: induction ongoing Comments: - s/p removal of cervidil; minimal change in cervix - will start cytotec for further cervical ripening; 25mcg q4hr unless decels or margarita frequently - continuous monitoring - anesthesia consult PRN pain - BP monitoring q15min; will repeat labs this afternoon, currently stable - Continue magnesium sulfate
[2021-05-06] MEDS: miSOPROStol 25 MCG TABLET VAGINAL (07:35)
[2021-05-06 09:06] LABS: Rapid Plasma Reagin Non-Reactive (NonReactive)
[2021-05-06] MEDS: OXYTOCIN 30 UNITS/NS 500 ML 30 UNITS/500 ML BAG 6 UNITS IV CONT (11:25)
[2021-05-06] MEDS: ACETAMINOPHEN 500 MG TABLET 1000 MG PO (12:05)
[2021-05-06] MEDS: fentaNYL CITRATE INJ (*CRX) 100 MCG/2 ML VIAL 50 MCG IV PUSH (13:58)
--- NOTE | 2021-05-06 16:11 | WPDANESEPPF ---
Anes - Initial Pre Proc Eval Procedure: labor epidural Date/Time: 05/06/21 16:11 Surgeon: Alma Ibanez MD Pre Op Diagnosis: labor pain Pre Op Diagnosis: iol Patient Data Age: 31 Gender: F Height: 1.57 m Weight: 75 kg Last Vital Signs Temp 37.0 C 05/06/21 13:00 Pulse 79 05/06/21 16:10 Resp 18 05/06/21 06:29 BP 128/80 05/06/21 16:10 Pulse Ox 94 05/06/21 16:07 Allergies Allergy/AdvReac Type Severity Reaction Status Date / Time latex Allergy Rash Verified 12/12/19 13:32 clindamycin AdvReac Headache Verified 12/12/19 13:31 Penicillins AdvReac MOUTH SORES Verified 12/12/19 13:34 Home Medications Medication Instructions Recorded Confirmed Type PNV cmb#95-ferrous fumarate-FA 1 tablet PO DAILY 02/05/21 05/05/21 History [] sertraline 50 mg PO HS 02/05/21 05/05/21 History Laboratory Tests 05/05/21 05/05/21 05/05/21 15:53 15:53 15:53 Sodium Potassium Chloride Carbon Dioxide Anion Gap BUN Creatinine Estim Creat Clear Calc Estimated GFR Glucose Uric Acid 3.9 mg/dL mg/dL (2.5-7.5) Calcium Total Bilirubin AST ALT Alkaline Phosphatase Total Protein Albumin RPR Non-reactive (NonReactive) Blood Type A Positive Antibody Screen Negative 05/05/21 15:53 Sodium 133 mmol/L L mmol/L (137-145) Potassium 3.8 mmol/L mmol/L (3.4-5.0) Chloride 108 mmol/L H mmol/L (98-107) Carbon Dioxide 21 mmol/L L mmol/L (22-30) Anion Gap 4 mmol/L L mmol/L (8-16) BUN 5 mg/dL L mg/dL (7-17) Creatinine 0.70 mg/dL mg/dL (0.7-1.0) Estim Creat Clear Calc 96 ml/min ml/min Estimated GFR > 60 (59 - ) Glucose 75 mg/dL mg/dL (65-110) Uric Acid Calcium 8.9 mg/dL mg/dL (8.4-10.2) Total Bilirubin 0.3 mg/dL mg/dL (0.2-1.3) AST 20 U/L U/L (14-36) ALT 15 U/L U/L (4-35) Alkaline Phosphatase 181 U/L H U/L (38-126) Total Protein 7.0 g/dL g/dL (6.3-8.2) Albumin 3.6 g/dL g/dL (3.5-5.1) RPR Blood Type Antibody Screen Patient hx anesthesia problems: none Family hx anesthesia problems: none PMFSH Past Medical History Medical History IBS (irritable bowel syndrome) Surgical History Surgical History H/O local excision of skin lesion Social History Social History Smoking packs per day: 0.5 Smoking cigarettes per day: 10.0 Years smoked: 15 Smoking pack-years: 7.50 Smoking status: Current every day smoker Tobacco type: cigarettes Second hand tobacco smoke exposure: Yes 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 Questions were solicited and answers provided to the satisfaction of the patient/family/POA.
[2021-05-06] MEDS: BETAMETHASONE SOD PHOS/ACETATE 30 MG/5 ML VIAL 12 MG IM (16:28)
--- NOTE | 2021-05-06 17:22 | PM.OBPNLAB ---
Pain Control Date/time seen: 05/06/21 17:22 Pain control: epidural Pelvic Exam Dilation (cm): 9 Effacement (%): 100 station: +1 Amniotic membrane status: Leaking (SROM, clear 1530) Contractions Monitor mode: External Contraction frequency: 2 Contraction pattern: Regular Status status: Category ll Assessment and Plan Pitocin rate (mU/min): 12 Assessment: active labor
[2021-05-06] MEDS: miSOPROStol 200 MCG TABLET 800 MCG RECTAL (18:48)
[2021-05-06] MEDS: OXYTOCIN 30 UNITS/NS 500 ML 30 UNITS/500 ML BAG 125 UNITS IV CONT (19:06)
--- NOTE | 2021-05-06 19:06 | P.PCNOB_ITS ---
OB - Delivery Note Procedure Delivery date: 05/06/21 events: Pre-Eclampsia (w/ SF), Labor Induction and Polyhydramnios Intrapartal events: None Induction method: per misoprostol protocol and per cervidil protocol Delivery augmentation: pitocin Delivery monitor: external FHT and internal uterine Route of delivery: Laceration Description: Perineal - 2nd Degree Delivery repair: vicryl Specimen: Yes Quantitative Blood Loss (ml): 200 Anesthesia type: Epidural Disposition: floor [place] Baby Date of : 05/06/21 Time of : 18:34 Weeks of gestation at delivery: 35 (.1) gender: Male Weight (pounds): 4 Weight (ounces): 11 presentation: vertex position: Right Occiput Posterior Placenta delivery description: Expressed cord vessel description: 3 Vessels score one minute: 8 score five minutes: 9 Narrative: Toño rapidly progressed to complete dilation with strong desire to push. She pushed for approximately 50 minutes and delivered the head over intact perineum. No nuchal cord was palpated. She delivered the shoulders and body without complications. The was immediately placed in the skin and the umbilical cord was then clamped and cut. The awaiting pediatric team evaluated the infant in the warmer and spontaneous cry was heard. With Pitocin running and gentle downward traction on the cord, the placenta delivered without complications. Bimanual massage was performed and good uterine tone with minim al bleeding was noted. The cervix, vagina, and perineum were examined and a small second-degree perineal laceration was noted. The laceration was repaired in normal fashion using 2 0 Vicryl. Slight bleeding was noted and bimanual exam showed small amount of clots in the uterus which were cleared out. A straight catheterization was performed under aseptic technique. Due to patient's prolonged magnesium use decision was made to place Cytotec 800 mcg rectally. Good hemostasis was noted. Sponge, lap, instrument, and needle counts were correct at the end of the procedure.
--- NOTE | 2021-05-06 21:34 | OBPPTRN ---
Patient transferred to post room #282 via wheelchair. Support person present. Oriented to unit, room, information board, rooming in, admission packet and security measures. Patient verbalizes understanding.
[2021-05-06] MEDS: SERTRALINE HCL 50 MG TABLET PO (21:57)
[2021-05-06] MEDS: LACTATED RINGERS 1,000 ML 100 ML IV CONT (21:57)
[2021-05-06] MEDS: ACETAMINOPHEN 325 MG TABLET 650 MG PO (22:53)
[2021-05-06] MEDS: IBUPROFEN 600 MG TABLET PO (22:54)
[2021-05-07] MEDS: MAGNESIUM SULF 20GM/WATER500ML 500 ML 25 MG IV CONT
[2021-05-07 03:30] VITALS: BP 126/68; PULSE 86; RESP 16; TEMP 37; O2SAT 96
[2021-05-07 05:18] LABS: Hematocrit 30.4 % (37.0-47.0); Hemoglobin 10.4 g/dL (12.0-15.0); Mean Corpuscular HGB Conc 34.2 g/dl (32-36); Mean Corpuscular Hemoglobin 31.4 pg (26-34); Mean Corpuscular Volume 91.8 fl (80-100); Mean Platelet Volume 11.1 fl (7.4-10.4); Platelet Count Result 211 k/mm3 (150-375); Red Blood Count 3.31 M/mm3 (4.2-5.4); Red Cell Distribution Width 12.9 % (11.5-14.5); White Blood Count 23.1 K/mm3 (4.5-10.0)
[2021-05-07 05:33] LABS: Alanine Aminotransferase 16 U/L (4-35); Albumin Level 2.8 g/dL (3.5-5.1); Alkaline Phosphatase 145 U/L (38-126); Anion Gap 5 mmol/L (8-16); Aspartate Amino Transferase 29 U/L (14-36); Bilirubin,Total 0.3 mg/dL (0.2-1.3); Blood Urea Nitrogen 7 mg/dL (7-17); Calcium 6.7 mg/dL (8.4-10.2); Carbon Dioxide 21 mmol/L (22-30); Chloride 107 mmol/L (98-107); Estimated CRCL calculation 85 ml/min; Estimated Glomerular Filt Rate > 60; Glucose 112 mg/dL (65-110); Magnesium 5.2 mg/dL (1.6-2.3); Potassium 3.7 mmol/L (3.4-5.0); Sodium 133 mmol/L (137-145)
[2021-05-07] MEDS: ACETAMINOPHEN 325 MG TABLET 650 MG PO ×2 (05:49→18:58)
[2021-05-07] MEDS: LACTATED RINGERS 1,000 ML 100 ML IV CONT (07:32)
--- NOTE | 2021-05-07 08:10 | WPDANLDPN2 ---
Anes-Prog Note L&D Date/Time: 05/07/21 08:10 Comfortable throughout: labor and delivery Neuraxial method: epidural Epidural/Spinal procedure site: clean & non-tender Neuro status: Neuro function grossly intact. Cardiovascular status: normal Respiratory status: normal Airway patency: baseline Mental status: baseline Post-Op hydration status: normal Vital Signs: Last Vital Signs Temp 37.0 C 05/07/21 03:30 Pulse 86 05/07/21 03:30 Resp 16 05/07/21 03:30 BP 126/68 05/07/21 03:30 Pulse Ox 96 05/07/21 03:30 Pain score (VAS): 0 I/O: Intake & Output 05/06/21 05/07/21 05/07/21 23:59 07:59 15:59 Intake Total 2000 1900 Output Total 380 3800 Balance 1620 -1900 Post-procedural complaints: none Patient feedback: Patient satisfied with anesthetic care.
[2021-05-07 08:15] VITALS: BP 144/91; PULSE 77; RESP 18; TEMP 37.4; O2SAT 98
--- NOTE | 2021-05-07 11:13 | P.PNOB_ITS ---
OB - PN: Subj Subjective Date/time seen: 05/07/21 11:13 Slightly groggy from meds. No MOREIRA or other s/s BP. Overall feels well. Minimal bleed/cramp. Urinating well. OB - PN: Obj Data Labs CBC & Chem 7: 05/07/21 04:55 05/07/21 05:03 Labs: Laboratory Results - last 24 hr 05/07/21 05/07/21 04:55 05:03 WBC 23.1 H RBC 3.31 L Hgb 10.4 L Hct 30.4 L MCV 91.8 MCH 31.4 MCHC 34.2 RDW 12.9 Plt Count 211 MPV 11.1 H Sodium 133 L Potassium 3.7 Chloride 107 Carbon Dioxide 21 L Anion Gap 5 L BUN 7 Creatinine 0.80 Estim Creat Clear Calc 85 Estimated GFR > 60 Glucose 112 H Calcium 6.7 L Magnesium 5.2 H Total Bilirubin 0.3 AST 29 ALT 16 Alkaline Phosphatase 145 H Total Protein 6.0 L Albumin 2.8 L OB - PN A/P Assessment and Plan (1) Pre-eclampsia, severe, third trimester: Code(s): O14.13 - Severe pre-eclampsia, third trimester Status: Acute Assessment and Plan: 1. stop Magnesium 2. start labetalol 3. continue to monitor BP, s/s elevated BP. Time Spent With Patient Time: Total time spent is greater than 50% in coordination of care (as d ocumented) at patient's floor/unit and/or counseling patient:
[2021-05-07 12:10] VITALS: BP 122/71; PULSE 77; RESP 16; TEMP 37.2; O2SAT 96
[2021-05-07] MEDS: WITCH HAZEL 40 PADS 1 PAD TOPICAL (16:26)
[2021-05-07 16:30] VITALS: BP 138/79; PULSE 68; RESP 18; TEMP 37.1; O2SAT 96
[2021-05-07 18:57] VITALS: PULSE 74
[2021-05-07] MEDS: LABETALOL HCL 100 MG TABLET 200 MG PO (18:57)
[2021-05-07 19:00] VITALS: BP 140/93; PULSE 74; RESP 16; TEMP 36.7; O2SAT 98
[2021-05-07] MEDS: SERTRALINE HCL 50 MG TABLET PO (22:31)
[2021-05-08] VITALS (8 sets, daily range): BP systolic 127–138; BP diastolic 72–86; PULSE 64–78; RESP 16–18; TEMP 36.4–37; O2SAT 99
--- NOTE | 2021-05-08 08:25 | PM.OBPNVD ---
OB - PN: Subj Subjective Date/time seen: 05/08/21 08:25 PPD#2 Toño reports doing well today. Magnesium was stopped, was started on labetalol. Her blood pressures are doing well. She reports her bleeding is light. She has tolerated regular diet. Has ambulated w/o symptoms of anemia. She is voiding and passing gas. She is breast feeding. He will need to stay in house for monitoring feeding/weight gain. She would like to go to a no-care bed. She denies CP, MOREIRA, vision changes, fever, chills, N/V, dizziness or palpitations. OB - PN: Obj Data Labs CBC & Chem 7: 05/07/21 04:55 05/07/21 05:03 OB - PN A/P Assessment and Plan (1) Pre-eclampsia, severe, third trimester: Code(s): O14.13 - Severe pre-eclampsia, third trimester Status: Acute (2) Normal vaginal delivery: Code(s): O80 - Encounter for full-term uncomplicated delivery Status: Acute Plan day: 1 Plan: routine care Comments: - BP's normal to mild range; continue labetalol 100mg BID -- will continue to monitor BPs x24 hrs as mag was stopped and labetalol started all at one - ER precautions: fever, bleeding, N/V/abd pain, HTN - Pelvic rest; take meds as prescribed - F/u 1wk for BP check - To no-care bed tomorrow, 05/09/21 Time Spent With Patient Time: Total time spent is greater than 50% in coordination of care (as documented) at patient's floor/unit and/or counseling patient: Review of Systems Review of Systems: All systems reviewed & are unremarkable except as noted in HPI and below (HPI) Exam Const: General: cooperative, healthy appearing, comfortable and no acute distress Resp: Effort & Inspection: normal respiratory effort and able to speak in complete sentences Auscultation: clear to auscultation bilaterally Cardio: Rate: regular rate GI: Inspection: normal to inspection and non-distended GI Palp: No abdominal tenderness and Yes Soft to palpation Auscultation: normal bowel sounds : Other: fundus firm Skin: General skin exam: normal color Neuro: General: patient oriented x3 Extrem: General: normal to inspection Psych: Appearance: grossly normal Affect: normal affect Attitude: cooperative
[2021-05-08] MEDS: LABETALOL HCL 100 MG TABLET 200 MG PO ×2 (08:53→21:48)
[2021-05-08] MEDS: SERTRALINE HCL 50 MG TABLET PO (21:48)
[2021-05-09 00:40] VITALS: BP 128/68; PULSE 76
[2021-05-09 04:59] VITALS: BP 128/70; PULSE 78
[2021-05-09 08:30] VITALS: BP 160/91; PULSE 76; RESP 20; TEMP 36.9; O2SAT 98
[2021-05-09 08:49] VITALS: PULSE 73
[2021-05-09] MEDS: MULTIVIT/MIN/PREN/FOL AC/IRON TABLET 1 TAB PO (08:49)
[2021-05-09] MEDS: LABETALOL HCL 100 MG TABLET 200 MG PO (08:49)
[2021-05-09] MEDS: TETANUS,DIPHTHERIA,AC PERTUSSIS ADULT (0.5 ML) BOOSTRIX IM (10:26)
[2021-05-09 10:30] VITALS: BP 143/93
--- NOTE | 2021-05-09 11:06 | PC.NURSE ---
Patient viewed the discharge video Mother & Baby Care, The First Two Weeks . Patient was given the opportunity and encouraged to ask questions. Patient verbalized understanding of information shared and has been given the mother/baby guide for home reference.
[2021-05-11 07:54] VITALS: BP 152/87; PULSE 67; RESP 16; TEMP 37.1; O2SAT 98
[2021-05-12 16:02] LABS: Cholic Acid 0.7 umol/L (< OR = 2.8); Total Bile Acids 2.6 umol/L (< OR = 8.3)
--- NOTE | 2021-05-28 15:43 | PM.OBDSVD ---
DS: Admitting Diagnosis Admitting Diagnosis PEC w/ SF DS: Discharge Diagnosis Discharge Diagnosis (1) Pre-eclampsia, severe, third trimester: Code(s): O14.13 - Severe pre-eclampsia, third trimester Status: Acute (2) Normal vaginal delivery: Code(s): O80 - Encounter for full-term uncomplicated delivery Status: Acute OB - DS: Summary OB Procedures : NST, PIH Mgmt and Ultrasound OB Procedures Intrapartum: Spontaneous Vag Delivery OB Procedures: : None Peripartum Data Infant Delivery Method: Natural Vaginal Laceration Description: Perineal - 2nd Degree complications: none 1: Gender: Male Disposition of : home Status at Discharge Functional status at discharge: independent ambulation Overall status at discharge: patient is back to baseline Time Spent with Patient Time attestation: Total time spent providing and/or coordinating discharge services: Exam Const: General: cooperative, healthy appearing, comfortable and no acute distress Resp: Effort & Inspection: normal respiratory effort Auscultation: clear to auscultation bilaterally Cardio: Rate: regular rate GI: Inspection: normal to inspection and non-distended GI Palp: No abdominal tenderness and Yes Soft to palpation Auscultation: normal bowel sounds : Other: fundus firm Skin: General skin exam: normal color Neuro: General: patient oriented x3 Extrem: General: normal to inspection Psych: Appearance: grossly normal Affect: normal affect Attitude: cooperative DS: Data Data Completed and Pending Completed studies during hospitalization: Pending at discharge 05/06/21 20:27 Surgical [PTH] Routine Discharge Plan Discharge Attending physician on discharge: Alma Ibanez Consulting providers: Toney Saldaña ; Wilbur Pendleton Discharging Clinician: Alma Ibanez Anticipated Discharge Date/Time: 05/09/21 08:00 Patient Disposition: Home, Self-Care Activity: pelvic rest Diet: regular Discharge Instructions: Education: Mom and Baby Guide Given to: Mother Follow-Up: Call your delivering provider's office for an appointment to be seen in: 1 Week Mom and baby should come to the [facility] for the follow-up appointment. Appointment Date/Time: May 11, 2021 at 8:00 am What to expect at your follow-up visit: Blood Pressure Check Physical Assessment Call [phone] if you are unable to keep your appointment time. BREAST CARE: * Wear a snug supportive bra. * For engorgement discomfort: Breast Feeding: * Apply warm moist washcloths * Express milk as needed to relieve engorgement * Wear loose clothing * For sore nipples: * Identify correct latch-on * Apply warm moist washcloths before and after nursing * Air dry nipples after nursing * May apply Lansinoh cream to nipples EPISIOTOMY/PERINEAL CARE: * Until bleeding stops, use your dayanna bottle after urinating * Change your pad frequently throughout the day * You may take sitz baths several times a day (fill your bathtub with warm water and soak for 20 minutes.) Do NOT bathe in the water * No tub baths until seen by your physician - You may shower ACTIVITY: * Rest as much as possible. * Do not exercise or lift anything heavier than your baby (such as laundry or other children.) * Avoid stairs or driving as much as possible. * Do not put anything into the vagina. No douching, tampons, or sexual activity until seen by physician. NOTIFY PHYSICIAN IF YOU HAVE ANY QUESTIONS OR IF ANY OF THE FOLLOWING SYMPTOMS OCCUR: * If your episiotomy or incision becomes red, swollen, or more painful than what you have experienced in the hospital. * If your vaginal bleeding becomes foul smelling. * If your vaginal bleeding becomes more heavy than a period or if your bleeding changes from pin
== END 2021-05-09 11:25 | disposition home or self-care (01) | DRG 807 ==
LOC: ANHLDR 16:02 → ANHOB2 05-06 21:41
PROVIDERS: Admitting Provider Obstetrics & Gynecology; PCP Nurse Practitioner Family; Visit Provider Obstetrics & Gynecology
DX: O36.5930 Maternal care for other known or suspected poor fetal growth, third trimester, not applicable or unspecified (principal); Z37.0 Single live birth; Z3A.35 35 weeks gestation of pregnancy; O14.14 Severe pre-eclampsia complicating childbirth; O70.1 Second degree perineal laceration during delivery; O99.344 Other mental disorders complicating childbirth; F41.9 Anxiety disorder, unspecified; O99.02 Anemia complicating childbirth; D64.9 Anemia, unspecified; O99.334 Smoking (tobacco) complicating childbirth; F17.210 Nicotine dependence, cigarettes, uncomplicated; O40.3XX0 Polyhydramnios, third trimester, not applicable or unspecified
CPT/HCPCS: 36415; 80053; 82542; 83735; 84550; 85025; 85027; 86592; 86850; 86900; 86901; 88307; 90715; A9270; J0702; J2590; J2795; J3010; J3475; J7120

== ENCOUNTER 2022-01-04 12:16 | Emergency (ER) | payer OTHER, MEDICAID, SELFPAY ==
[2022-01-04 12:25] VITALS: BP 123/81; PULSE 98; RESP 16; TEMP 36.7; O2SAT 99
--- NOTE | 2022-01-04 12:36 | ED.URI ---
HPI - URI/Sore Throat General Chief Complaint: Upper Respiratory Infection Stated Complaint: sore throat,headache, chest pain Time Seen by Provider: 01/04/22 12:55 Source: patient and RN notes reviewed Mode of arrival: ambulatory Limitations: no limitations History of Present Illness HPI Narrative: 31-year-old female presents with concern for sore throat, headache, cough, fevers, body aches, fatigue since yesterday. Reports fevers of 103. She reports she has been alternating Tylenol and ibuprofen, DayQuil and NyQuil. She denies shortness of breath, nausea, vomiting, diarrhea MD elicited complaint: sore throat and nasal congestion Related Data Allergies Allergy/AdvReac Type Severity Reaction Status Date / Time latex Allergy Rash Verified 01/04/22 12:36 clindamycin AdvReac Headache Verified 01/04/22 12:36 Penicillins AdvReac MOUTH SORES Verified 01/04/22 12:36 Review of Systems Review of Systems: CONSTITUTIONAL: Reports malaise, fatigue, fever. EYES: Denies visual changes, redness, or discharge. ENT: Reports rhinorrhea, congestion, sore throat. Denies sinus pain, otalgia CARDIOVASCULAR: Denies chest pain, palpitations, or edema. RESPIRATORY: Reports cough. Denies dyspnea. GASTROINTESTINAL: Denies abdominal pain, nausea, vomiting, diarrhea SKIN: Denies rash or itching. MUSCULOSKELETAL: Reports myalgia. NEUROLOGIC: Reports headache. All systems reviewed & are unremarkable except as noted in HPI and below PMFSH Past Medical History Medical History (Updated 01/04/22 @ 13:07 by Alisa Flower NP) Anxiety H/O: depression IBS (irritable bowel syndrome) Migraine Nausea Surgical History Surgical History (Updated 10/18/21 @ 09:08 by Precious Fry MA) H/O gynecological procedure (~06/2021) Nexplanon removal H/O local excision of skin lesion History of hysteroscopy (~07/05/21) Hx of endoscopy [place] teeth removed Family History Family History (Updated 10/18/21 @ 09:13 by Precious Fry MA) Grandparent Hypertension Grandparent Diabetes mellitus Other Bipolar disorder Other Carcinoma of cervix Mother Cyst of breast Social History Social History (Updated 10/18/21 @ 09:14 by Precious Fry MA) Smoking packs per day: 0.5 Smoking cigarettes per day: 10.0 Years smoked: 15 Smoking pack-years: 7.50 Smoking status: Current every day smoker Tobacco type: cigarettes Second hand tobacco smoke exposure: Yes Alcohol intake: unknown Substance use: never 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 There is no relevant family history pertinent to the presenting complaint Exam Narrative: GENERAL: Nontoxic-appearing and in no acute distress. HEAD: Normocephalic EYES: PERRLA, conjunctivae clear ENT: Nares clear, clear discharge. Mucous membranes moist. TM pearly marr with dull light reflex bilaterally; no tragal tenderness. Oropharynx not erythematous without lesions. Tonsils not enlarged and without exudate, no drooling, no hoarseness, no trismus, uvula midline. NECK: Supple. No lymphadenopathy CHEST: Clear to auscultation, breath sounds equal. No wheezing, rhonchi, rales, or stridor. No respiratory distress, speaks in full sentences. HEART: Regular rate and rhythm. No murmur heard. SKIN: Warm, dry, no rash. NEURO: Alert and oriented x3. PSYCH: Normal mood and affect Course Course Emergency Course: Patient is aware of diagnosis, understands and agrees to treatment plan. Anticipatory guidance given. Patient agrees to follow-up as directed and is aware of reasons to seek care at the emergency department. Portions of this record may have been created with voice recognition software Level of Care: Express
== END 2022-01-04 13:15 | disposition home or self-care (01) ==
PROVIDERS: Emergency Provider Nurse Practitioner
DX: B34.9 Viral infection, unspecified (principal); F17.210 Nicotine dependence, cigarettes, uncomplicated; Z20.822 Contact with and (suspected) exposure to COVID-19
CPT/HCPCS: 87081; 87426; 87804; 87880; 99213; C9803; G0463

== ENCOUNTER 2022-01-08 12:04 | Emergency (ER) | payer OTHER, MEDICAID, SELFPAY ==
--- NOTE | 2022-01-08 12:10 | ED.SKABFB ---
HPI - Skin/Abscess/Foreign Bdy General Stated complaint: rash from head to toe ear clogged Time Seen by Provider: 01/08/22 12:10 Source: patient and RN notes reviewed History of Present Illness HPI narrative: Patient is a 31-year-old female who presents the urgent care with complaints of diffuse all over body rash and left ear pain. Patient states the rash started yesterday. Patient was seen at our facility on Monday and was negative for influenza, Covid and strep throat. Patient was given Mucinex and Sudafed. Patient states that she is taking the Sudafed before without any reactions. Denies of any fevers. No other acute complaints. No acute distress noted. Patient aware the plan of care. Some parts of this dictation were generated by voice recognition software and may contain typographical and/or grammatical inaccuracies. Related Data Allergies Allergy/AdvReac Type Severity Reaction Status Date / Time latex Allergy Rash Verified 01/08/22 12:32 clindamycin AdvReac Headache Verified 01/08/22 12:32 Penicillins AdvReac MOUTH SORES Verified 01/08/22 12:32 Review of Systems Review of Systems: CONSTITUTIONAL: Denies fever, chills, or sweats. EYES: Denies visual changes, redness, or discharge. ENT: Denies rhinorrhea, congestion, sore throat. Reports of left otalgia CARDIOVASCULAR: Denies chest pain, palpitations, or edema. RESPIRATORY: Denies cough or dyspnea. GASTROINTESTINAL: Denies abdominal pain, nausea, vomiting, or diarrhea. GENITOURINARY: Denies dysuria or hematuria. SKIN: Reports of itchy red rash covering the body MUSCULOSKELETAL: Denies back pain, joint pain, or myalgia. NEUROLOGIC: Denies headache, numbness, or weakness. All other systems reviewed are negative, except as documented in HPI. [facility] Past Medical History Medical History (Updated 01/08/22 @ 12:34 by SEAMUS Harding) Anxiety H/O: depression IBS (irritable bowel syndrome) Migraine Nausea Surgical History Surgical History (Updated 10/18/21 @ 09:08 by Precious Fry MA) H/O gynecological procedure (~06/2021) Nexplanon removal H/O local excision of skin lesion History of hysteroscopy (~07/05/21) Hx of endoscopy [place] teeth removed Family History Family History (Updated 10/18/21 @ 09:13 by Precious Fry MA) Grandparent Hypertension Grandparent Diabetes mellitus Other Bipolar disorder Other Carcinoma of cervix Mother Cyst of breast Social History Social History (Updated 10/18/21 @ 09:14 by Precious Fry MA) Smoking packs per day: 0.5 Smoking cigarettes per day: 10.0 Years smoked: 15 Smoking pack-years: 7.50 Smoking status: Current every day smoker Tobacco type: cigarettes Second hand tobacco smoke exposure: Yes Alcohol intake: unknown Substance use: never 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 There is no relevant family history pertinent to the patient complaint. Exam Narrative: GENERAL: This is a well-nourished, well-developed patient. Appears anxious HEAD: normocephalic, atraumatic. EYES: PERRL. Sclera clear/white. Vision is grossly intact. Mild surrounding erythema to the right eye. Conjunctiva normal EARS: External ears normal, auditory canals clear and without drainage, TMs normal without perforation. Hearing grossly intact. NOSE: External nose normal with no obvious nasal discharge, nares without redness, no rhinorrhea. THROAT: Mucous membranes moist, posterior pharynx clear. NECK: Neck supple, non-tender without lymphadenopathy CARDIOVASCULAR: Regular rate and rhythm without murmurs, gallops, or rubs. RESPIRATORY: Clear to auscultation. Breath sounds equal bilateral
[2022-01-08 12:15] VITALS: BP 120/81; PULSE 100; RESP 20; TEMP 36.8; O2SAT 99
== END 2022-01-08 12:35 | disposition home or self-care (01) ==
PROVIDERS: Emergency Provider Nurse Practitioner Family
DX: L30.9 Dermatitis, unspecified (principal); H92.02 Otalgia, left ear
CPT/HCPCS: 99213; G0463

== ENCOUNTER → 2022-06-07 09:49 | Outpatient (CLI) | payer OTHER, SELFPAY ==
--- NOTE | ~2022-06-07 | US_ITS ---
EXAMINATION: US OB follow up DATE: 06/07/2022 10:21 INDICATION: Encounter for supervision of normal TECHNIQUE: Real-time ultrasound of the pelvis was performed. The interpreting radiologist was not pre sent for the study. COMPARISON: None. FINDINGS: There is a single living fetus in transverse lie. The placenta is anterior and not low-lying with cau myron margin 3.8 cm from the internal cervical os. Cervical length of at least 4 cm which is normal. Fe ollie heart rate is 161 beats per minute (bpm). The amniotic fluid volume is subjectively normal. The following biometric data were obtained: BPD: 4.1 cm -> 18 weeks 3 days Head circumference: 15.0 cm -> 18 weeks 0 days Abdominal circumference: 13.2 cm -> 18 weeks 5 days Femur length: 2.6 cm -> 17 weeks 5 days These measurements are concordant. Head circumference to abdominal circumference ratio: 1.14 (normal range 1.08-1.27). Estimated weight: 230 g (+/-) 34 g or 8 oz. (+/-) 1 oz. IMPRESSION: 1. Single living fetus in transverse lie with heart rate of 161 bpm. 2. Gestational age by ultrasound of weeks day(s) +/- week(s) day(s) with ultrasound estimated date of delivery (MARIE) of . Estimated weight is th percentile by Hadlock criteria when is used as the MARIE. Please correlate with clinical information or earlier ultrasounds for most accurate MARIE. 3. Estimated weight is th percentile by Hadlock criteria when is used as the estimated date of delivery (MARIE). Please correlate with clinical information or earlier ultrasounds for most accurate E DD. Reviewed, dictated and finalized at location A. IMPRESSION: 1. Single living fetus in transverse lie with heart rate of 161 bpm. 2. Gestational age by ultrasound of weeks day(s) +/- week(s) day(s) with ultras ound estimated date of delivery (MARIE) of . Estimated weight is th percent ile by Hadlock criteria when is used as the MARIE. Please correlate with clinical information or earlier ultrasounds for most accurate MARIE. 3. Estimated weight is th percentile by Hadlock criteria when is used as the estimated date of delivery (MARIE). Please correlate with clinical informatio n or earlier ultrasounds for most accurate MARIE.
== END ==
PROVIDERS: PCP Obstetrics & Gynecology; Visit Provider Obstetrics & Gynecology
DX: Z34.91 Encounter for supervision of normal pregnancy, unspecified, first trimester (principal); Z3A.00 Weeks of gestation of pregnancy not specified
CPT/HCPCS: 76816

== ENCOUNTER → 2022-06-22 09:45 | Outpatient (CLI) | payer OTHER, SELFPAY ==
--- NOTE | ~2022-06-22 | US_ITS ---
EXAMINATION: US OB /maternal detail DATE: 06/22/2022 10:19 INDICATION: anatomic survey. TECHNIQUE: Real-time ultrasound of the pelvis was performed. COMPARISON: Ultrasound 06/07/2022 FINDINGS: There is a single living fetus in transverse lie. The placenta is anterior, 4.6 cm from the cervix. The cervical length is normal. heart rate is 143 beats per minute (bpm). The amniotic fluid vol ume is subjectively normal. The following biometric data were obtained: Biparietal diameter (BPD): 4.9 cm; head circumference (HC): 18.1 cm; abdominal circumference (AC): 15 .8 cm; femur length (FL): 3.3 cm. These measurements are concordant. Estimated weight is 362 g +/- 54 g, which correlates with the 10th percentile when 10/30/22 is u sed as estimated date of delivery. As single measurements, these parameters are each equal to the following estimated gestational ages: BPD: 20 weeks 6 days. HC: 20 weeks 4 days. AC: 20 weeks 6 days. FL: 20 weeks 1 days. estimated gestational age based solely on measurements from this exam is 20 weeks 4 days +/- 1 weeks 3 days. The cerebral ventricles, cerebellum, cisterna magna, lip, nuchal fold, and visualized portions of the spine are normal. The heart is normal. The diaphragm, stomach, kidneys, and bladder are normal. Ther e are two umbilical arteries to yield a 3-vessel cord. The cord insertion is normal. IMPRESSION: 1. Single living fetus in transverse lie. 2. Estimated weight is 362 g +/- 54 g, which correlates with the 10th percentile when 10/30/22 is used as estimated date of delivery. 3. Normal anatomic survey. Reviewed, dictated and finalized at location A. IMPRESSION: 1. Single living fetus in transverse lie. 2. Estimated weight is 362 g +/- 54 g, which correlates with the 10th pe rcentile when 10/30/22 is used as estimated date of delivery. 3. Normal anatomic survey.
== END ==
PROVIDERS: PCP Obstetrics & Gynecology; Visit Provider Obstetrics & Gynecology
DX: Z36.9 Encounter for antenatal screening, unspecified (principal); Z3A.20 20 weeks gestation of pregnancy
CPT/HCPCS: 76805

== ENCOUNTER → 2022-09-13 09:50 | Outpatient (CLI) | payer OTHER, SELFPAY ==
--- NOTE | ~2022-09-13 | US_ITS ---
EXAMINATION: US OB follow up DATE: 09/13/2022 10:14 INDICATION: Size greater than dates. TECHNIQUE: Real-time transabdominal obstetric ultrasound. FINDINGS: Comparison to multiple prior studies sequentially, with oldest reviewed study dated 022. There is a single living fetus in vertex presentation. The placenta is anterior without placenta pre via. cardiac activity and movement is noted with a heart rate of beats per minute. The a mniotic fluid volume is increased. MARYJO measures 26.2 cm (normal range for gestational age is 8.3-24.5 cm) The following biometric data were obtained: BPD: 82mm corresponds to gestational age 32 weeks 6 days. Head circumference: 294mm corresponds to gestational age 32 weeks 3 days. Abdominal circumference: 269mm corresponds to gestational age 31 weeks 0 days. Femur length: 60mm corresponds to gestational age 31 weeks 2 days. Estimated weight: 1758grams +/- 264grams, 5.5%.] IMPRESSION: 1. Single living intrauterine fetus in vertex presentation with an estimated gestational age of 32 w eeks 2 days by inititial ultrasound. Appropriate interval growth. 2. Polyhydramnios.. 3: Small for gestational age with estimated weight corresponding to 5% by Hadlock method Reviewed, dictated and finalized at location A. TOGRAPHIC VULNERABILITY ANALYST IMPRESSION: 1. Single living intrauterine fetus in vertex presentation with an estimated g estational age of 32 weeks 2 days by inititial ultrasound. Appropriate interva l growth. 2. Polyhydramnios.. 3: Small for gestational age with estimated weight corresponding to 5% by Hadlock method
== END ==
PROVIDERS: PCP Obstetrics & Gynecology; Visit Provider Obstetrics & Gynecology
DX: O36.5930 Maternal care for other known or suspected poor fetal growth, third trimester, not applicable or unspecified (principal); O40.3XX0 Polyhydramnios, third trimester, not applicable or unspecified; Z3A.32 32 weeks gestation of pregnancy
CPT/HCPCS: 76816

== ENCOUNTER 2022-11-21 08:59 | Emergency (ER) | payer OTHER, SELFPAY ==
[2022-11-21 09:36] VITALS: BP 116/78; PULSE 76; RESP 14; TEMP 36.4; O2SAT 99
--- NOTE | 2022-11-21 10:29 | ED.FEMALEGU ---
HPI - Female Genitourinary General Chief complaint: Urogenital-Female Stated complaint: Urinary Problem Time Seen by Provider: 11/21/22 10:30 Source: patient, RN notes reviewed and old records reviewed Mode of arrival: ambulatory Limitations: no limitations History of Present Illness HPI Narrative: 32 year old female who presents to express care with complaints of urinary tract infection symptoms since Monday which include frequency urgency pain burning urination and suprapubic pressure patient is she reports she had a fever up to 101F on Monday with chills taking ibuprofen has not had fevers since last Monday. Patient is at this time MD elicited complaint: UTI Pertinent past history: other (back pain) Onset (ago): day(s) (5) Related Data Home Medications Medication Instructions Recorded Confirmed enalapril maleate 5 mg tablet 5 mg PO BID 11/21/22 11/21/22 Allergies Allergy/AdvReac Type Severity Reaction Status Date / Time latex Allergy Rash Verified 11/21/22 09:56 clindamycin AdvReac Headache Verified 11/21/22 09:56 Penicillins AdvReac MOUTH SORES Verified 11/21/22 09:56 Review of Systems Review of Systems: CONSTITUTIONAL: Reports fever, chills, or sweats on Monday none since CARDIOVASCULAR: Denies chest pain, palpitations, or edema. RESPIRATORY: Denies cough or dyspnea. GASTROINTESTINAL: Denies abdominal pain, nausea, vomiting, or diarrhea. GENITOURINARY: Reports dysuria, frequency, urgency. Denies flank pain or visible hematuria. SKIN: Denies rash or itching. MUSCULOSKELETAL: Denies back pain or myalgia. Denies CVA tenderness NEUROLOGIC: Denies headache All systems reviewed & are unremarkable except as noted in HPI and below PMFSH Past Medical History Medical History Anxiety H/O: depression IBS (irritable bowel syndrome) Migraine Nausea Surgical History Surgical History H/O gynecological procedure (~06/2021) Nexplanon removal H/O local excision of skin lesion History of hysteroscopy (~07/05/21) Hx of endoscopy [place] teeth removed Family History Family History Grandparent Hypertension Grandparent Diabetes mellitus Other Bipolar disorder Other Carcinoma of cervix Mother Cyst of breast Social History Social History Smoking packs per day: 0.5 Smoking cigarettes per day: 10.0 Years smoked: 15 Smoking pack-years: 7.50 Smoking status: Current every day smoker Tobacco type: cigarettes Second hand tobacco smoke exposure: Yes Alcohol intake: unknown Substance use: never Living arrangements: with family 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 There is no relevant family history pertinent to the presenting complaint Exam Narrative: GENERAL: Well-appearing, well-nourished, and in no acute distress. HEAD: Normocephalic, atraumatic. NECK: Supple.no lymphadenopathy CHEST: Clear to auscultation. No respiratory distress.[id number]% on room air HEART: Regular rate and rhythm. No murmur heard. Normal peripheral pulses. ABDOMEN: Soft, supra pubic tender, nondistended, normal active bowel sounds. No CVA tenderness, urinary burning EXTREMITIES: Normal range of motion. No edema. SKIN: Warm, dry, no rash. NEURO: No focal deficits. Alert and oriented x3. Course Course Emergency Course: Patient is aware of diagnosis, understands and agrees to treatment plan.? Anticipatory guidance given.? Patient agrees to follow-up as directed and is aware o
== END 2022-11-21 10:48 | disposition home or self-care (01) ==
PROVIDERS: Emergency Provider Registered Nurse; PCP Family Medicine
DX: N39.0 Urinary tract infection, site not specified (principal); F17.210 Nicotine dependence, cigarettes, uncomplicated
CPT/HCPCS: 81003; 87077; 87086; 87186; 99213; G0463

== ENCOUNTER 2023-03-30 17:33 | Emergency (ER) | payer OTHER, SELFPAY ==
--- NOTE | 2023-03-30 17:36 | ED.DENTAL ---
HPI - Dental/Oral General Chief complaint: Dental/Oral Stated complaint: Dental/Oral Time Seen by Provider: 03/30/23 17:36 Source: patient Mode of arrival: ambulatory Limitations: no limitations History of Present Illness HPI Narrative: Toño is a 33-year-old female patient presenting to clinic today with complaints of dental pain x2 weeks. She reports no known fever or chills. Reports pain to bilateral posterior upper molars. Cannot get into her dentist for another 2 weeks. Has allergies to penicillin and clindamycin. Related Data Allergies Allergy/AdvReac Type Severity Reaction Status Date / Time latex Allergy Mild Rash Verified 03/30/23 17:36 clindamycin AdvReac Mild Headache Verified 03/30/23 17:36 Penicillins AdvReac Mild MOUTH SORES Verified 03/30/23 17:36 Review of Systems Review of Systems: Pertinent positives per HPI. Patient denies any fever, chills, rash, headache, visual changes, dizziness, cough, runny nose, sore throat, shortness of breath, chest pain, palpitations, nausea, vomiting, diarrhea, constipation, abdominal pain, or any urinary issues. [facility] Past Medical History Medical History Anxiety H/O: depression IBS (irritable bowel syndrome) Migraine Nausea Surgical History Surgical History H/O gynecological procedure (~06/2021) Nexplanon removal H/O local excision of skin lesion History of hysteroscopy (~07/05/21) Hx of endoscopy [place] teeth removed Family History Family History Grandparent Hypertension Grandparent Diabetes mellitus Other Bipolar disorder Other Carcinoma of cervix Mother Cyst of breast Social History Social History Smoking packs per day: 0.5 Smoking cigarettes per day: 10.0 Years smoked: 15 Smoking pack-years: 7.50 Smoking status: Current every day smoker Tobacco type: cigarettes Second hand tobacco smoke exposure: Yes Alcohol intake: unknown Substance use: never Living arrangements: with family Additional occupation/education comments: works in [employer] office Gender identity (if verbalized by the patient): Female Sexual Orientation (if Verbalized by the Patient): Straight or Heterosexual Spiritual care concerns: No Comments At the time of my signature, I reviewed and agree with the nursing past medical, surgical, social, and family history. There is no relevant family history pertinent to the patient complaint. Exam Narrative: General: Well-developed, well nourished, in no apparent distress Head: Normocephalic, atraumatic Eyes: Pupils equally round and reactive to light bilaterally, EOM intact, sclera and conjunctive clear, no discharge, lids normal Ears: TMs intact and clear, ear canals clear, no drainage, grossly hearing normal. Nose: Nares patent, no discharge, no inflammation, no sinus tenderness. Mouth: Oropharynx without lesions or masses, poor dentition, MMM. Tenderness to palpation over tooth number 2 and 15 with redness and swelling around the gums. Neck: Supple, trachea midline, no enlargement of anterior or posterior cervical nodes, no thyroid masses or goiter palpable. Cardio: Regular rate and rhythm, s1 and s2 normal, no murmur appreciated. Resp: Clear to auscultation bilaterally anteriorly and posteriorly, no rhonchi, rales, wheezing or rubs Course Course Emergency Course: Portions of this record may have been created with voice recognition software. Level of Care: Express Care Visit Vital Signs Vital signs: Vital signs reviewed MDM - Dental/Oral MDM Narrative Medical decision making narrative: At the time of visit patient is resting comfortably on exam table. She is allergic to penicillin-causes sores in her mouth and throat to close, and allergic
[2023-03-30 17:40] VITALS: BP 125/81; PULSE 94; RESP 16; TEMP 37.2; O2SAT 97
== END 2023-03-30 17:54 | disposition home or self-care (01) ==
PROVIDERS: Emergency Provider Nurse Practitioner Family
DX: K08.89 Other specified disorders of teeth and supporting structures (principal)
CPT/HCPCS: 99213; G0463

== ENCOUNTER 2023-05-12 16:39 | Emergency (ER) | payer OTHER, SELFPAY ==
[2023-05-12 16:43] VITALS: BP 120/73; PULSE 99; RESP 20; TEMP 36.7; O2SAT 98
--- NOTE | 2023-05-12 16:56 | ED.URI ---
HPI - URI/Sore Throat General Chief Complaint: Upper Respiratory Infection Stated Complaint: flu/covid symptoms Time Seen by Provider: 05/12/23 16:55 Source: patient, RN notes reviewed and old records reviewed Mode of arrival: ambulatory Limitations: no limitations History of Present Illness HPI Narrative: 33 year old female who presents to express care with complaints of cough since this morning which is harsh and dry, body aches and sore throat, feverish, headache and feels tired since this morning. Patient reports that she has taken some Ibuprofen for her symptoms. Patient reports that she has been COVID vaccinated and had COVID before. Patient denies any shortness of breath with SAO2 98% on room air, cough is non productive, denies any wheezing, no tachypnea noted. MD elicited complaint: cough and sore throat Onset (ago): hour(s) (from this morning) Pain scale (0-10): 4 Able to tolerate fluids by mouth: Yes Treatments prior to arrival: ibuprofen Related Data Allergies Allergy/AdvReac Type Severity Reaction Status Date / Time latex Allergy Mild Rash Verified 03/30/23 17:36 clindamycin AdvReac Mild Headache Verified 03/30/23 17:36 Penicillins AdvReac Mild MOUTH SORES Verified 03/30/23 17:36 Review of Systems Review of Systems: CONSTITUTIONAL:Reports malaise, chills, sweats, or fever. EYES: Denies visual changes, redness, or discharge. ENT: Reports rhinorrhea, congestion, sinus pain, no otalgia positive sore throat. CARDIOVASCULAR: Denies chest pain, palpitations, or edema. RESPIRATORY: Reports dry harsh cough.? Denies dyspnea. GASTROINTESTINAL: Denies abdominal pain, nausea, vomiting, diarrhea SKIN: Denies rash or itching. MUSCULOSKELETAL: reports myalgia. NEUROLOGIC: reports headache. All systems reviewed & are unremarkable except as noted in HPI and below PMFSH Past Medical History Medical History Anxiety H/O: depression IBS (irritable bowel syndrome) Migraine Nausea Surgical History Surgical History H/O gynecological procedure (~06/2021) Nexplanon removal H/O local excision of skin lesion History of hysteroscopy (~07/05/21) Hx of endoscopy [place] teeth removed Family History Family History Grandparent Hypertension Grandparent Diabetes mellitus Other Bipolar disorder Other Carcinoma of cervix Mother Cyst of breast Social History Social History Smoking packs per day: 0.5 Smoking cigarettes per day: 10.0 Years smoked: 15 Smoking pack-years: 7.50 Smoking status: Current every day smoker Tobacco type: cigarettes Second hand tobacco smoke exposure: Yes Alcohol intake: unknown Substance use: never Living arrangements: with family 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 There is no relevant family history pertinent to the presenting complaint Exam Narrative: GENERAL: Well-appearing, well-nourished, and in no acute distress. HEAD: Normocephalic EYES: PERRLA, conjunctivae clear ENT: Nares clear, turbinates edematous and erythematous, clear discharge. Mucous membranes moist. TM pearly marr with dull light reflex bilaterally; no tragal tenderness. Oropharynx erythematous without lesions. Tonsils red enlarged and without exudate, no drooling, no hoarseness, no trismus, uvula midline. post nasal drainage. NECK: Supple. No lymphadenopathy CHEST: Clear to auscultation, breath sounds equal. No wheezing, rhonchi, rales, or stridor. No respiratory dist
== END 2023-05-12 17:35 | disposition home or self-care (01) ==
PROVIDERS: Emergency Provider Registered Nurse
DX: J06.9 Acute upper respiratory infection, unspecified (principal); J03.90 Acute tonsillitis, unspecified; Z20.822 Contact with and (suspected) exposure to COVID-19; F17.210 Nicotine dependence, cigarettes, uncomplicated
CPT/HCPCS: 87081; 87426; 87804; 87880; 99213; C9803; G0463

== ENCOUNTER 2023-12-10 09:35 | Emergency (ER) | payer OTHER, SELFPAY ==
[2023-12-10 09:47] VITALS: BP 115/71; PULSE 107; RESP 18; TEMP 37; O2SAT 100
--- NOTE | 2023-12-10 10:00 | ED.URI ---
HPI - URI/Sore Throat General Chief Complaint: Upper Respiratory Infection Stated Complaint: Body Aches/Fever/Congestion History of Present Illness HPI Narrative: Patient presents with sudden onset of diarrhea x1 episode fever body aches nasal congestion. No shortness of breath no chest pain. Related Data Home Medications Medication Instructions Recorded Confirmed sertraline 50 mg tablet 50 mg PO DAILY 12/10/23 12/10/23 Allergies Allergy/AdvReac Type Severity Reaction Status Date / Time latex Allergy Mild Rash Verified 12/10/23 10:05 clindamycin AdvReac Mild Headache Verified 12/10/23 10:05 Penicillins AdvReac Mild MOUTH SORES Verified 12/10/23 10:05 Review of Systems Review of Systems: CONSTITUTIONAL: Denies chills, or sweats. Reports fever and generalized body aches EYES: Denies visual changes, redness, or discharge. ENT: Denies otalgia. Reports nasal congestion runny nose and sore throat CARDIOVASCULAR: Denies chest pain, palpitations, or edema. RESPIRATORY: Denies dyspnea. Reports occasional cough GASTROINTESTINAL: Denies abdominal pain, nausea, vomiting, or diarrhea. GENITOURINARY: Denies dysuria or hematuria. SKIN: Denies rash or itching. MUSCULOSKELETAL: Denies back pain, joint pain, or myalgia. Reports generalized body aches NEUROLOGIC: Denies headache, numbness, or weakness. PSYCHIATRIC: Denies anxiety or depression. [facility] Past Medical History Medical History Anxiety H/O: depression IBS (irritable bowel syndrome) Migraine Nausea Surgical History Surgical History H/O gynecological procedure (~06/2021) Nexplanon removal H/O local excision of skin lesion History of hysteroscopy (~07/05/21) Hx of endoscopy [place] teeth removed Family History Family History Grandparent Hypertension Grandparent Diabetes mellitus Other Bipolar disorder Other Carcinoma of cervix Mother Cyst of breast Social History Social History Smoking packs per day: 0.5 Smoking cigarettes per day: 10.0 Years smoked: 15 Smoking pack-years: 7.50 Smoking status: Current every day smoker Tobacco type: cigarettes Second hand tobacco smoke exposure: Yes Alcohol intake: unknown Substance use: never Living arrangements: with family 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 There is no relevant family history pertinent to the presenting complaint Exam Narrative: The patient is a well-developed, well-nourished in no acute distress. SKIN: Skin is warm and dry without erythema, swelling or exudate. There is good turgor. No tenting. HEAD: Atraumatic. Normocephalic. No temporal or scalp tenderness. EYES: Moist and bright. Sclera and conjunctivae normal. No discharge. PERRLA. Extraocular motions intact. Gross visual acuity intact. EARS: Pinna is normal shape and contour. Clear external auditory canals. TM pearly pitts with good cone of light, no erythema or suppuration. Bilateral cerumen noted no gross hearing deficit. NOSE: pink, moist mucosa with good air movement. Clear rhinorrhea without nasal flaring. Septum midline. Mouth: moist mucous membranes. THROAT; mild erythema noted to posterior oropharynx with moderate postnasal drainage. Without exudate or ulceration.. Uvula midline. Normal movement of soft palate. NECK: Supple and nontender with full range of motion without discomfort. No meningeal signs. LUNGS: Equal and bilateral breath sounds without wheezes, rales or rhonchi. CHEST: Th
== END 2023-12-10 10:00 | disposition home or self-care (01) ==
PROVIDERS: Emergency Provider Nurse Practitioner Family
DX: U07.1 COVID-19 (principal); F41.9 Anxiety disorder, unspecified; F32.A Depression, unspecified; F17.210 Nicotine dependence, cigarettes, uncomplicated
CPT/HCPCS: 87426; 87804; 99213; G0463

== ENCOUNTER 2024-01-13 10:01 | Emergency (ER) | payer OTHER, SELFPAY ==
[2024-01-13 10:06] VITALS: BP 119/76; PULSE 88; RESP 18; TEMP 36.7; O2SAT 99
[2024-01-13 10:32] VITALS: BP 119/76; PULSE 88; RESP 18; TEMP 36.7; O2SAT 99
--- NOTE | 2024-01-13 11:02 | ED.GENADULT ---
HPI - General Adult General Chief complaint: Eye Problems Stated complaint: poss pink eye Source: patient Mode of arrival: ambulatory Limitations: no limitations History of Present Illness HPI narrative: Patient presents for evaluation of right eye irritation. Symptom onset today. She woke this morning from sleep with her right eye swollen shut. She reports thick yellow drainage from the right eye with redness, itching, discomfort, swelling to the upper and lower lids, and mild blurred vision. She does not were glasses or contacts. 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 Denies is or visual disturbance. Related Data Home Medications Medication Instructions Recorded Confirmed sertraline 50 mg tablet 50 mg PO DAILY 12/10/23 01/13/24 Allergies Allergy/AdvReac Type Severity Reaction Status Date / Time latex Allergy Mild Rash Verified 01/13/24 10:08 clindamycin AdvReac Mild Headache Verified 01/13/24 10:08 Penicillins AdvReac Mild MOUTH SORES Verified 01/13/24 10:08 Review of Systems Review of Systems: CONSTITUTIONAL: Denies fever, chills, or sweats. EYES: Reports red miss, itching, discomfort, swelling to the upper and lower lids, thick yellow drainage and mild blurred vision in right eye ENT: Denies rhinorrhea, congestion, sore throat, or otalgia. CARDIOVASCULAR: Denies chest pain, palpitations, or edema. RESPIRATORY: Denies cough or dyspnea. GASTROINTESTINAL: Denies abdominal pain, nausea, vomiting, or diarrhea. GENITOURINARY: Denies dysuria or hematuria. SKIN: Denies rash or itching. MUSCULOSKELETAL: Denies back pain, joint pain, or myalgia. NEUROLOGIC: Denies headache, numbness, dizziness, or weakness. PSYCHIATRIC: Denies anxiety or depression. [facility] Past Medical History Medical History Anxiety H/O: depression IBS (irritable bowel syndrome) Migraine Nausea Surgical History Surgical History H/O gynecological procedure (~06/2021) Nexplanon removal H/O local excision of skin lesion History of hysteroscopy (~07/05/21) Hx of endoscopy [place] teeth removed Family History Family History Grandparent Hypertension Grandparent Diabetes mellitus Other Bipolar disorder Other Carcinoma of cervix Mother Cyst of breast Social History Social History Smoking packs per day: 0.5 Smoking cigarettes per day: 10.0 Years smoked: 15 Smoking pack-years: 7.50 Smoking status: Current every day smoker Tobacco type: cigarettes Second hand tobacco smoke exposure: Yes Alcohol intake: unknown Substance use: never Living arrangements: with family 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 HEAD: Normocephalic, atraumatic. EYES: PERRLA and EOMI. Right conjunctival injection with mild swelling in right upper and lower eyelids. ENT: Nares clear, no rhinorrhea or epistaxis. Mucous membranes moist. Oropharynx without tonsillar hypertrophy exudate or other lesions. Bilateral TMs pearly marr nonbulging NECK: Supple. No adenopathy or masses. No carotid bruits or JVD CHEST: Clear to auscultation. No respiratory distress. No wheezes rales or rhonchi HEART: Regular rate and rhythm. No murmur heard. Normal peripheral pulses. ABDOMEN: Soft, nontender, nondistended, normal active bowel sounds. EXTREMITIES: Normal range of motion. No edema. SKIN: Warm, dry, no rash. NEURO: No focal deficits. Alert and oriented x3. PSYCH: Normal mood and affect.
== END 2024-01-13 10:25 | disposition home or self-care (01) ==
PROVIDERS: Emergency Provider Nurse Practitioner
DX: H10.31 Unspecified acute conjunctivitis, right eye (principal); F17.210 Nicotine dependence, cigarettes, uncomplicated; F41.9 Anxiety disorder, unspecified; F32.A Depression, unspecified
CPT/HCPCS: 99213; G0463

== ENCOUNTER 2024-08-09 11:02 | Emergency (ER) | payer BC, SELFPAY ==
--- NOTE | ~2024-08-09 | XR_ITS ---
EXAMINATION: XR ribs RT 2V w CXR 2V DATE: 08/09/2024 11:56 INDICATION: Shortness of breath. Pain. TECHNIQUE: Frontal and lateral views of the chest and 2 views on 3 radiographs of the right ribs were obtained. COMPARISON: Chest single view 02/28/2018 FINDINGS: CHEST TWO VIEWS: There is no pneumonia, pleural effusion, or pneumothorax. The heart size is normal. RIGHT RIBS: There is no rib fracture. IMPRESSION: 1. No rib fracture. Reviewed, dictated and finalized at location B. IMPRESSION: 1. No rib fracture.
--- NOTE | 2024-08-09 11:13 | ED_ITS ---
HPI - SOB/Dyspnea General Chief Complaint: Shortness of Breath/Dyspnea Stated Complaint: Shortness of Breath Time Seen by Provider: 08/09/24 11:12 Source: patient and RN notes reviewed Mode of arrival: ambulatory Limitations: no limitations History of Present Illness HPI Narrative: 34-year-old female presents with concern for shortness of breath. Reports she started having right chest/chest wall pain last night and then began having shortness of breath this morning. She denies new cough, upper respiratory infection symptoms. She denies fever. She is a smoker, half pack per day. Reports chronic cough for 2 years MD elicited complaint: shortness of breath Related Data Allergies Allergy/AdvReac Type Severity Reaction Status Date / Time latex Allergy Mild Rash Verified 01/13/24 10:08 clindamycin AdvReac Mild Headache Verified 01/13/24 10:08 Penicillins AdvReac Mild MOUTH SORES Verified 01/13/24 10:08 Review of Systems Review of Systems: CONSTITUTIONAL: Denies malaise, chills, sweats, or fever. EYES: Denies visual changes, redness, or discharge. ENT: Reports rhinorrhea, congestion, sinus pain, otalgia and sore throat. CARDIOVASCULAR: Denies chest pain, palpitations, or edema. RESPIRATORY: Reports chronic cough. Reports dyspnea and right chest wall pain GASTROINTESTINAL: Denies abdominal pain, nausea, vomiting, diarrhea SKIN: Denies rash or itching. MUSCULOSKELETAL: Denies myalgia. NEUROLOGIC: Denies headache. All systems reviewed & are unremarkable except as noted in HPI and below PMFSH Past Medical History Medical History Anxiety H/O: depression IBS (irritable bowel syndrome) Migraine Nausea Surgical History Surgical History H/O gynecological procedure (~06/2021) Nexplanon removal H/O local excision of skin lesion History of hysteroscopy (~07/05/21) Hx of endoscopy [place] teeth removed Family History Family History Grandparent Hypertension Grandparent Diabetes mellitus Other Bipolar disorder Other Carcinoma of cervix Mother Cyst of breast Social History Social History Smoking packs per day: 0.5 Smoking cigarettes per day: 10.0 Years smoked: 15 Smoking pack-years: 7.50 Smoking status: Current every day smoker Tobacco type: cigarettes Second hand tobacco smoke exposure: Yes Alcohol intake: unknown Substance use: never Living arrangements: with family 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 There is no relevant family history pertinent to the presenting complaint Exam Narrative: GENERAL: Well-appearing, well-nourished, and in no acute distress. HEAD: Normocephalic EYES: PERRLA, conjunctivae clear ENT: Nares clear, turbinates edematous and erythematous, clear discharge. Mucous membranes moist. TM pearly marr with dull light reflex bilaterally; no tragal tenderness. Oropharynx not erythematous without lesions. Tonsils not enlarged and without exudate, no drooling, no hoarseness, no trismus, uvula midline. NECK: Supple. No lymphadenopathy CHEST: Inspiratory wheeze throughout, breath sounds equal. No rhonchi, rales, or stridor. No respiratory distress, speaks in full sentences. HEART: Regular rate and rhythm. No murmur heard. SKIN: Warm, dry, no rash. NEURO: Alert and oriented x3. PSYCH: Normal mood and affect Course Course Emergency Course: Patient is aware of diagnosis, understands and agrees to treatment plan. Anticipatory guidance given. Patient agrees to follow-up as directed and is aware of reasons to seek care at the emergency department. Portions of this record may have been created with voice recognition software Level of Care: Express Care Visit Reevaluation(s) Reevaluation #1: Patient is reporting feeling like she is having a panic attack, she is hyperventilating and is very anxious. Reports like she felt like she cannot breathe through the mouth piece of the DuoNeb. Patient was calmed, switch to a mask and symptoms improved Date: 08/09/24 Time: 11:30 Reevaluation #2: Patient's lungs are clear, normal aeration, no tachypnea after DuoNeb Date: 08/09/24 Time: 12:06 Vital Signs Vital signs: Reviewed. MDM - SOB/Dyspnea MDM Narrative Medical decision making narrative: Differential diagnosis considered: [place] virus, strep pharyngitis, allergic rhinitis, upper respiratory tract infection, sinusitis, rhinosinusitis, nasopharyngitis. viral pharyngitis, otitis media, otitis externa, pneumonia, bronchitis, viral cough syndrome, viral syndrome, and influenza. Exam findings show no acute concerns or changes; patient is non-toxic appearing and is in no distress. Patient is appropriate for outpatient treatment and follow-up. Lab Data Attestation: I reviewed the patient's lab results. Imaging Data My impression: Images reviewed, interpreted by radiologist, agree, see report. Radiologist's impression: EXAMINATION: XR ribs RT 2V w CXR 2V DATE: 08/09/2024 11:56 INDICATION: Shortness of breath. Pain. TECHNIQUE: Frontal and lateral views of the chest and 2 views on 3 radiographs of the right ribs were obtained. COMPARISON: Chest single view 02/28/2018 FINDINGS: CHEST TWO VIEWS: There is no pneumonia, pleural effusion, or pneumothorax. The heart size is normal. RIGHT RIBS: There is no rib fracture. IMPRESSION: 1. No rib fracture. Critical Care Time Critical Care Time Critical Care Time: No Discharge Plan Discharge Clinical Impression: Bilateral wheezing, Chest wall pain Patient Disposition: Home, Self-Care Condition: Stable Instructions: How to Use a Metered-Dose Inhaler and a Spacer (ED), Wheezing (ED) Additional Instructions: 1) Please follow-up with your primary care doctor in the next 1-2 days. 2) If you have any worsening of symptoms or any other urgent concerns please go to the ER. 3) Please take medications as prescribed, use your inhaler as needed for shortness of breath. You can take muscle relaxers as needed, they may make you drowsy so you should know how they affect you before you work, drive, make important decisions 4) Please read and follow information included in discharge instructions. Prescriptions: New cyclobenzaprine 10 mg tablet 10 mg PO TID PRN (Reason: muscle spasm) Qty: 20 0RF prednisone 20 mg tablet 40 mg PO DAILY 5 Days Qty: 10 0RF albuterol sulfate 90 mcg/actuation HFA aerosol inhaler 2 puff INHALATION QID PRN (Reason: shortness of breath or wheezing) Qty: 8.5 0RF (DME) BreatheRite Valved MDI Chamber Spacer See Rx Instructions .Route Qty: 1 0RF Rx Instructions: As directed Follow-up/Referrals: PHYSICIAN,TELECOMMUNICATIONS MANAGER [Primary Care Provider] - Stand Alone Forms: Work/School Release IP Time of Disposition: 12:13
[2024-08-09 11:16] VITALS: BP 121/68; PULSE 87; RESP 28; TEMP 36.9; O2SAT 100
[2024-08-09] MEDS: IPRATROPIUM 0.5 MG/ALBUTEROL SULFATE 2.5 MG AMPUL.NEB 3 ML INHALATION (11:20)
[2024-08-09 11:30] VITALS: PULSE 91; RESP 28; O2SAT 100
[2024-08-09 12:19] VITALS: RESP 12
== END 2024-08-09 12:19 | disposition home or self-care (01) ==
PROVIDERS: Emergency Provider Nurse Practitioner
DX: R06.2 Wheezing (principal); R07.89 Other chest pain; F17.210 Nicotine dependence, cigarettes, uncomplicated
CPT/HCPCS: 71046; 71100; 94640; 99213; G0463

== ENCOUNTER 2024-09-01 11:45 | Emergency (ER) | payer BC, SELFPAY ==
[2024-09-01 12:12] VITALS: BP 128/83; PULSE 92; RESP 20; TEMP 36.9; O2SAT 100
[2024-09-01 12:26] LABS: EDSTREPNEGPOS1 Negative (Negative)
--- NOTE | 2024-09-01 13:24 | ED_ITS ---
HPI - General Adult General Chief complaint: Upper Respiratory Infection Stated complaint: Sinus Pain Source: patient Mode of arrival: ambulatory Limitations: no limitations History of Present Illness HPI narrative: Patient presents for evaluation of sick symptoms for last few days. Symptoms include nonproductive cough, sore throat, and left-sided ear pain. No fever, chills, nausea, vomiting, shortness of breath. She does vape. No recent sick contacts to her knowledge. Related Data Allergies Allergy/AdvReac Type Severity Reaction Status Date / Time latex Allergy Mild Rash Verified 09/01/24 12:42 clindamycin AdvReac Mild Headache Verified 09/01/24 12:42 Penicillins AdvReac Mild MOUTH SORES Verified 09/01/24 12:42 Review of Systems Review of Systems: CONSTITUTIONAL: Denies fever, chills, or sweats. EYES: Denies visual changes, redness, or discharge. ENT: Reports sore throat and left-sided otalgia. Denies rhinorrhea CARDIOVASCULAR: Denies chest pain, palpitations, or edema. RESPIRATORY: Reports nonproductive cough. Denies shortness of breath. GASTROINTESTINAL: Denies abdominal pain, nausea, vomiting, or diarrhea. GENITOURINARY: Denies dysuria or hematuria. SKIN: Denies rash or itching. MUSCULOSKELETAL: Denies back pain, joint pain, or myalgia. NEUROLOGIC: Denies headache, numbness, dizziness, or weakness. PSYCHIATRIC: Denies anxiety or depression. [facility] Past Medical History Medical History Anxiety H/O: depression IBS (irritable bowel syndrome) Migraine Nausea Surgical History Surgical History H/O gynecological procedure (~06/2021) Nexplanon removal H/O local excision of skin lesion History of hysteroscopy (~07/05/21) Hx of endoscopy [place] teeth removed Family History Family History Grandparent Hypertension Grandparent Diabetes mellitus Other Bipolar disorder Other Carcinoma of cervix Mother Cyst of breast Social History Social History Smoking packs per day: 0.5 Smoking cigarettes per day: 10.0 Years smoked: 15 Smoking pack-years: 7.50 Smoking status: Current every day smoker Tobacco type: cigarettes Second hand tobacco smoke exposure: Yes Alcohol intake: unknown Substance use: never Living arrangements: with family 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 HEAD: Normocephalic, atraumatic. EYES: PERRLA and EOMI. ENT: Nares clear, no rhinorrhea or epistaxis. Mucous membranes moist. Oropharynx without tonsillar hypertrophy exudate or other lesions. Left tympanic membrane is erythematous and bulging NECK: Supple. No adenopathy or masses. No carotid bruits or JVD CHEST: Clear to auscultation. No respiratory distress. No wheezes rales or rhonchi HEART: Regular rate and rhythm. No murmur heard. Normal peripheral pulses. ABDOMEN: Soft, nontender, nondistended, normal active bowel sounds. EXTREMITIES: Normal range of motion. No edema. SKIN: Warm, dry, no rash. NEURO: No focal deficits. Alert and oriented x3. PSYCH: Normal mood and affect. Course Course Emergency Course: This is a 34-year-old female who presented for evaluation of sick symptoms. She has evidence of otitis media on exam. Will treat with cefdinir. Increase hydration. [id number] agents for symptom management. Advised on smoking cessation. Follow up with primary provider. Go to the ER for worsening symptoms. Patient in agreement with plan of care Level of Care: Express Care Visit Vital Signs Vital signs: Vital Signs Temperature 36.9 C 09/01/24 12:12 Pulse Rate 92 09/01/24 12:12 Respiratory Rate 20 09/01/24 12:12 Blood Pressure 128/83 09/01/24 12:12 Pulse Oximetry 100 09/01/24 12:12 Oxygen Delivery Room Air 09/01/24 12:12 Temperature 36.9 C 09/01/24 12:12 Pulse Rate 92 09/01/24 12:12 Respiratory Rate 20 09/01/24 12:12 Blood Pressure 128/83 09/01/24 12:12 Pulse Oximetry 100 09/01/24 12:12 Oxygen Delivery Room Air 09/01/24 12:12 Medical Decision Making Vital Signs Vital Signs: Vital Signs Temperature 36.9 C 09/01/24 12:12 Pulse Rate 92 09/01/24 12:12 Respiratory Rate 20 09/01/24 12:12 Blood Pressure 128/83 09/01/24 12:12 Pulse Oximetry 100 09/01/24 12:12 Oxygen Delivery Room Air 09/01/24 12:12 Temperature 36.9 C 09/01/24 12:12 Pulse Rate 92 09/01/24 12:12 Respiratory Rate 20 09/01/24 12:12 Blood Pressure 128/83 09/01/24 12:12 Pulse Oximetry 100 09/01/24 12:12 Oxygen Delivery Room Air 09/01/24 12:12 Lab Data Labs: Lab Results 09/01/24 Range/Units 12:25 POC Grp A Strep Screen Negative (Negative) Discharge Plan Discharge Clinical Impression: Acute otitis media, left Patient Disposition: Home, Self-Care Condition: Stable Instructions: Antibiotic Form, Ear Infection (GEN) Patient Language: Wolof Prescriptions: New cefdinir 300 mg capsule 300 mg PO Q12H Qty: 20 0RF Follow-up/Referrals: Eduardo Gomez MD [Physician] - Time of Disposition: 12:49
== END 2024-09-01 12:50 | disposition home or self-care (01) ==
PROVIDERS: Emergency Provider Nurse Practitioner
DX: H66.92 Otitis media, unspecified, left ear (principal); F17.210 Nicotine dependence, cigarettes, uncomplicated
CPT/HCPCS: 87081; 87880; 99213; G0463

== ENCOUNTER 2024-09-04 09:41 | Emergency (ER) | payer BC, SELFPAY ==
[2024-09-04 09:50] VITALS: BP 117/77; PULSE 93; RESP 18; TEMP 37.1; O2SAT 99
--- NOTE | 2024-09-04 10:13 | ED.ALLEREA ---
HPI - Allergic Reaction General Chief complaint: Allergic Reaction Stated complaint: Side effects from medicine Time Seen by Provider: 09/04/24 10:00 Source: patient, RN notes reviewed and old records reviewed Mode of arrival: ambulatory Limitations: no limitations History of Present Illness HPI narrative: 34 year old female presents to [facility] care with possible reaction to Cefdinir which she started on Monday for ear infection and sinus infection. Patient reports that she noted some facial swelling and some eye burning on Monday, took last dose on Monday morning concerned she may have reaction to the Cefdinir, denies any difficulty with her breathing or any difficulty with her swelling. Patient has been taking Zyrtec and did take some Benadryl. MD complaint: allergic reaction (cefdinir) Onset (ago): day(s) (2) Treatment prior to arrival: benadryl and other (Zyrtec D) Previous Allergic Reaction History: other (penicillin and Clindamycin and latex) Related Data Home Medications Medication Instructions Recorded Confirmed albuterol sulfate 90 mcg/actuation inhalation 09/04/24 aerosol inhaler Allergies Allergy/AdvReac Type Severity Reaction Status Date / Time latex Allergy Mild Rash Verified 09/01/24 12:42 cefdinir Allergy Swelling Verified 09/04/24 10:10 of the Eye clindamycin AdvReac Mild Headache Verified 09/01/24 12:42 Penicillins AdvReac Mild MOUTH SORES Verified 09/01/24 12:42 Review of Systems Review of Systems: CONSTITUTIONAL: Reports malaise,no chills, sweats, or fever. EYES: Denies visual changes, redness, or discharge. ENT: Reports rhinorrhea, congestion, sinus pain, bilateral otalgia and no sore throat. CARDIOVASCULAR: Denies chest pain, palpitations, or edema. RESPIRATORY: Reports cough.? Denies dyspnea. GASTROINTESTINAL: Denies abdominal pain, nausea, vomiting, diarrhea SKIN: Denies rash or itching. MUSCULOSKELETAL: Denies myalgia. NEUROLOGIC: Denies headache. All systems reviewed & are unremarkable except as noted in HPI and below PMFSH Past Medical History Medical History Anxiety H/O: depression IBS (irritable bowel syndrome) Migraine Nausea Surgical History Surgical History H/O gynecological procedure (~06/2021) Nexplanon removal H/O local excision of skin lesion History of hysteroscopy (~07/05/21) Hx of endoscopy [place] teeth removed Family History Family History Grandparent Hypertension Grandparent Diabetes mellitus Other Bipolar disorder Other Carcinoma of cervix Mother Cyst of breast Social History Social History Smoking packs per day: 0.5 Smoking cigarettes per day: 10.0 Years smoked: 15 Smoking pack-years: 7.50 Smoking status: Current every day smoker Tobacco type: cigarettes Second hand tobacco smoke exposure: Yes Alcohol intake: unknown Substance use: never Living arrangements: with family 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 There is no relevant family history pertinent to the presenting complaint Exam Narrative: GENERAL: Well-appearing, well-nourished, and in no acute distress. HEAD: Normocephalic EYES: PERRLA, conjunctivae clear ENT: Nares clear, turbinates edematous and erythematous, clear discharge some sinus pressure. Mucous membranes moist.Bilateral TM red TM pearly with no swelling or redness of ear canals.; no tragal tenderness. Oropharynx erythematous without lesions. Tonsils not enlarged and without exudate, no drooling, no hoarseness, no trismus, uvula midline.post nasal drainage noted NECK: Supple. No lymphadenopathy CHEST: Clear to auscultation, breath sounds equal. No wheezing, rhonchi, rales, or stridor. No respiratory distress, speaks in full sentences.no difficulty with breathing SAO2 99% on room air HEART: Regular rate and rhythm. No murmur heard. SKIN: Warm, dry, no rash. NEURO: Alert and oriented x3. PSYCH: Normal mood and affect Course Course Emergency Course: Patient is aware of diagnosis, understands and agrees to treatment plan.? Anticipatory guidance given.? Patient agrees to follow-up as directed and is aware of reasons to seek care at the emergency department. Portions of this record may have been created with voice recognition software Level of Care: Express Care Visit Vital Signs Vital signs: Vital Signs Temperature 37.1 C 09/04/24 09:50 Pulse Rate 93 09/04/24 09:50 Respiratory Rate 18 09/04/24 09:50 Blood Pressure 117/77 09/04/24 09:50 Pulse Oximetry 99 09/04/24 09:50 Oxygen Delivery Room Air 09/04/24 09:50 Temperature 37.1 C 09/04/24 09:50 Pulse Rate 93 09/04/24 09:50 Respiratory Rate 18 09/04/24 09:50 Blood Pressure 117/77 09/04/24 09:50 Pulse Oximetry 99 09/04/24 09:50 Oxygen Delivery Room Air 09/04/24 09:50 Reviewed MDM - Allergic Reaction Differential Diagnosis Differential diagnosis: Likely adverse reaction to drug and other (possible allergic reaction symptoms, otitis media, URI) Medical Records Attestation: I reviewed the patient's medical records. Lab Data Attestation: I reviewed the patient's lab results. Critical Care Time Critical Care Time Critical Care Time: No Discharge Plan Discharge Clinical Impression: Otitis media of both ears, Adverse reaction to drug Patient Disposition: Home, Self-Care Condition: Stable Instructions: Antibiotic Form, Ear Infection (ED), Adverse Drug Reaction (ED) Additional Instructions: Patient to take Zyrtec daily for the next 10 days Pepcid 20 mg daily for 10 days Prednisone 10 mg taper take as prescribed with food take all doses Azithromycin as prescribed for ear infection Tylenol or Ibuprofen for any fever or pain If your symptoms persist, change or worsen significantly before you can contact your personal physician then please, without delay, go to the emergency department for further evaluation. Follow-up with PCP in 7-10 days or sooner if needed If any difficulty with breathing or any feelings of problems with swallowing go directly to the emergency room Prescriptions: New azithromycin 250 mg tablet See Rx Instructions .ROUTE .COMPLEX Qty: 6 0RF Rx Instructions: For 250 mg dose pack: take 500 mg today (day 1), then 250 mg for 4 days (days 2-5) prednisone 10 mg tablet 10 mg PO DIRECTED Qty: 21 0RF Rx Instructions: see taper instructions6 tabs day 1, 5 tabs day 2, 4 tabs day 3. 3 tabs day 4, 2 tabs day 5,1 tab day 6 No Action albuterol sulfate 90 mcg/actuation HFA aerosol inhaler INHALATION Follow-up/Referrals: UNKNOWN,DOCTOR [Primary Care Provider] - Time of Disposition: 10:33 Quality [place] Coma Scale Eyes: Open Verbal: Oriented and Alert Motor: Follows Commands [place] Coma Total Score: 15
== END 2024-09-04 10:37 | disposition home or self-care (01) ==
PROVIDERS: Emergency Provider Registered Nurse
DX: H66.93 Otitis media, unspecified, bilateral (principal); R22.0 Localized swelling, mass and lump, head; H57.89 Other specified disorders of eye and adnexa; T36.1X5A Adverse effect of cephalosporins and other beta-lactam antibiotics, initial encounter; F17.210 Nicotine dependence, cigarettes, uncomplicated
CPT/HCPCS: 99213; G0463

== ENCOUNTER 2025-05-13 15:20 | Outpatient (CLI) | payer OTHER, SELFPAY ==
--- NOTE | ~2025-05-13 | XR_ITS ---
EXAMINATION: XR chest 2V DATE: 05/13/2025 15:40 INDICATION: Wheezing TECHNIQUE: PA and lateral views of the chest were obtained. COMPARISON: Chest radiograph dated 08/09/2024 FINDINGS: The lungs remain clear with no focal airspace opacities, pulmonary edema, pleural effusion or pneumot horax. The cardiomediastinal silhouette is normal. Visualized bones and soft tissues are unremarkable . IMPRESSION: 1. Normal chest radiograph. Reviewed, dictated and finalized at location A. IMPRESSION: 1. Normal chest radiograph.
--- OUTSIDE RECORDS SUMMARY | 2025-05-13 15:27 | XMS_ITS | Referral Summary ---
Author Organization [facility] Address [address] [place] [address] Care Team Providers Care Political Worker Name Role Phone No, Physician Primary Care Provider [phone] Allergies Active Allergy Reactions Criticality Noted Date Comments Amoxicillin Hives,Rash Medium Reaction: Hives, Skin Rash, Ampicillin Hives,Rash Medium Reaction: Hives, Skin Rash, Clindamycin Headache High 03/30/2021 Labetalol Dizziness,Nausea & Vomiting Low 09/23/2022 Latex, Natural Rubber Swelling,Rash Medium 09/15/2015 Facial swelling Penicillins Hives,Rash Medium Reaction: Hives, Skin Rash, Medications acetaminophen (TYLENOL) 500 mg tablet Take 1 tablet (500 mg total) by mouth every 6 (six) hours as needed for pain 30 tablet 2023 Active ibuprofen (ADVIL,MOTRIN) 600 mg tablet Take 1 tablet (600 mg total) by mouth every 6 (six) hours as needed for pain 30 tablet 2023 Active oxyCODONE (ROXICODONE) 5 mg immediate release tabletIndication s:Pain Take 1 tablet (5 mg total) by mouth every 4 (four) hours as needed for pain 15 tablet 2023 Active Active Problems Problem Noted Date Diagnosed Date Cardiac risk counseling 10/19/2022 care following vaginal delivery 10/10 Overview (10/12/2022): # ID: Afebrile. No signs/symptoms of infection. #COVID-19: Test not indicated # Heme: EBL 200 mL. No symptoms acute blood loss anemia. # CV/Pulm: #Gestational Hypertension: Dx based on mild range BPs >4 hrs apart. Asymptomatic - no headache, RUQ pain, vision changes. BPs well controlledon no meds. Previously on nifedipine this but DC'd in setting of headaches. CBC/CMP wnl on admission, UPC 0.2. Enalapril 2.5mg BID started PPD1 and increase to 5mg BID on PPD2 for persistently MR BPs. Enrolled in home BP monitoring. # GI/: Tolerating PO. Voiding spontaneously. # Pain: Controlled with above regimen. # Psych: #Hx of PPD: previously on sertraline, no meds currently. For referral to [facility] and/or restart SSRI as indicated. #Tobacco Use: s/p counseling, declines nicotine replacement this admission # Post DVT prophylaxis: The patient has the following MAJOR risk factors none and the following MINOR risk factors BMI 30-39. SCDs ordered for VTE prophylaxis. # MOC: Desired ppBTL but Medicaid consents not able to be found in outside records. [place]ents [place] on admission 10/09 and will be for interval tubal. Undecided regarding bridge method. # MOF: . Urine drug screen not indicated. Patient informed of results: N/A. # COVID Vaccination Status: Previously received # Disposition: Follow up to be scheduled with primary OB. Desires discharge home today. Gestational hypertension, antepartum 10/06/2022 Overview (10/06/2022): Mild range BP in [facility] 10/05 and reported elevated blood pressures at primary OB the week before prompting start of an antihypertensive. Ruled out for Pre-E 10/05 in [facility] Maternal care for poor growth, third trimester, fetus 1 09/23/2022 Overview (10/05/2022): Toño's is dated by a 17 week ultrasound that was consistent with a sure LMP. Her last baby was [id number] at 35 weeks and continues to be a shorter child. Last growth (at [facility]): 1981g, 7th%ile, AC 11%ile. long bones symmetrically shortened below the 1st %ile but morphologically normal. Skeletal dysplasia thought unlikely but cannot be excluded. S/p counseling 09/23/22 Plan [x] Genetic testing: declines [] Weekly BPP/Dopplers and weekly NST [] Delivery recommended at [id number]. No contraindications to a vaginal delivery. History of pre-eclampsia 09/20/2022 Overview (10/05/2022): Ms Figueroa has a history of preeclampsia in her prior occurring at 35 weeks gestation. CMP: Cr 0.70, ALT 14, AST 26 CBC: 12.3/36.5/262 Pre-E labs performed on 09/23/2022 WNL S/p counseling 09/23 regarding recurrence risk. Maternal tobacco use, third trimester 09/20/2022 Anxiety and depression 03/30/2021 Overview (09/23/2022): Endorses depression after last baby: states this was largely situational. Had been previously on sertraline. We discussed the frequency of anxiety and depression in and the period. Discussed available resources, including counseling services and the relative safety of SSRIs in /. Support offered. At this time, she does not desire any interventions. IBS (irritable bowel syndrome) 03/30/2021 Smoker 03/30/2021 Overview (09/23/2022): I have reviewing with the patient today her tobacco use and its obstetrical implications. Use of tobacco in has been associated with the following adverse outcomes: Spontaneous , labor, delivery, intrauterine growth restriction as well as intrauterine demise. Moreover, children exposed to tobacco smoke are at an increased risk of developing childhood asthma as well as sudden syndrome (SIDS) in the first 6 months of life. I do recommend cessation of tobacco use and have extensively discussed this with the patient, recognizing that this addiction is rather hard to quit. I have encouraged Toño to utilize the resource of the [employer] Quit Hotline, whose phone number is 7-818-PBINNOW. 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 Induction of labor for gHTN: Admit to L&D. Consents signed and placed in chart. Labs: CBC/T&S/RPR/CMP/UPC/HIV ordered on admission. Induction of labor with oxytocin. 2. FWB: Continuous monitoring. NST reactive. 3. ID: 3rd trimester HIV (>28 wga) ordered on admission GBS unknown not in [facility], couldn't find in scanned records from 09/15. Of note, pt has PCN allergy (hives/rash) and pt answered no to question at primary OB about having prior child affected by GBS RPR on admission: pending. Membrane Status: intact. 4. Indications for UDS: none. Verbal consent obtained for UDS: Not indicated 5. MOF: Plans to breastfeed. Urine drug screen not indicated. Patient informed of results: N/A 6. [facility] consents this month, not visualized in the chart. Signed [place] consents 10/09/22. Undecided on bridge contraception, does not want depo or nexplanon. 7. Pain management: Epidural upon patient request. 1. Post DVT prophylaxis: The patient has the following MAJOR risk factors none and the following MINOR risk factors BMI 30-39. SCDs will be ordered for VTE prophylaxis . 8. COVID Vaccine Status: received primary series 9. COVID Test Status: Test not indicated Complications: #FGR: EFW 7%ile, UAD wnl, long bones symmetrically shortened below the 1st %ile but morphologically normal. Skeletal dysplasia thought unlikely but cannot be excluded. Previous baby was [id number] at 35 weeks and continues to be a shorter child. Last growth 09/21: 1981g, 7th%ile, AC 11%ile. #gHTN/h/o PreE: pt started on NXL60 daily by primary OB in 3T for reported MR BP. Had MR BP in [facility] clinic 10/05 and MOREIRA. Went to [facility] for r/o PreE and had another MR BP, MOREIRA resolved w/ compazine. On no meds currently as nfedipine discontinued as thought to be contributing to MOREIRA. PreE at 35wks in prior . Most recent labs 10/05 CBC/CMP wnl, UPC 0.217. #h/o PTD: at 35wks 2/2 PreE #h/o PPD: previously on sertraline, no meds currently. For referral to [facility] and/or restart SSRI as indicated. #polyhydramnios: Diagnosed on third trimester growth for size>dates by her primary, confirmed on ultrasound at [facility] 09/21. Mild, MARYJO 24.9. 1 hour GTT result 128. Has not done genetic testing. After counseling, pt declined genetic testing. US 10/04 - MARYJO 27.7. #Tobacco use: 1PPD, declines nicotine replacement therapy Other Information: Dating criteria: L=2 EFW: 1981g (7%) by US dated 09/21 Placenta: anterior PNL: Rh [pos], Ab [neg], Rubella [imm], Varicella [imm], HIV [NR], RPR [NR], HepC [NR], HepBSAg [NR], GC/CT [neg/neg] Elevated BP, currently 10/06/2022 11/23/2022 Overview (10/06/2022): No h/o CHTN. Started on Nifed XL 60mg last week by primary OB for mild range BP per patient report. 10/05: BP mild range in clinic - 130/90. Current headache. Will send to [facility] for rule out preeclampsia. Precautions reviewed and patient amenable to plan. Recommend discontinuing Nifedipine. Polyhydramnios in third trim aditi, not applicable or unspecified fetus 09/20/2022 11/23/19 Overview (10/06/2022): History - Diagnosed on third trimester growth for size>dates by her primary, confirmed on ultrasound at [facility] 09/21. Mild, MARYJO 24.9. 1 hour GTT result 128. Has not done genetic testing. After counseling, declines genetic testing. US 10/04 - MARYJO 27.7 S/p counseling 09/23 Plan [x] Genetics- declines [x] Consider serial growth ultrasounds per FGR [x] testing (32-34 weeks, 1-2x weekly) per FGR [] Delivery per FGR History of delivery, currently , third trimester 09/20/2022 11/23/2022 Overview (09/23/2022): History of delivery at 35 weeks secondary to pre-eclampsia. No indication of labor or cervical insufficiency. Supervision of high-risk pre gnancy, third trimester 09/20/2022 11/23/2022 Overview (10/04/2022): [] Co-management vs. [x] Full [facility] Care; [] Red Team [] Blue Team full CHRISTO to [facility] as of 10/04/22 per Farshad, email to financial team on 10/04-jl Referring Provider: Sixto Madrid [phone]: ultrasounds here, plan for no further visits unless indicated [] or Medicare Insurance [x] Dating Criteria: LMP 01/23/22 with MARIE 10/30/22 [x] Labs: Rh [A+], Ab [negative], Rubella [immune], HIV [non-reactive], HepBSAg [negative], RPR [non-reactive], Hep C [negative], Varicella [immune], GC/CT [negative/negative] [x] Genetic Screening: CF negative [x] CBC/Hgb 13.8/39.7/plt 299 [x] UCx: 09/09/22 negative [x] Pap: 05/19/22 NILM; HPV negative [] LD ASA (if indicated) starting at 12 weeks: not taking [] EPDS [ ]; [facility] referral (if indicated) 2nd Tri Labs: [x] Anatomy ultrasound: [x] CBC/Ferritin/1hr gtt at 24-28wks: 11.5/33.8/plt 232; GTT 128 [] Flu Shot (Jun-Sep): [] Tdap (27-36wks): [x] COVID Vaccine: received 09/29/20 and 12/18/20 [] Rhogam at 28 wks (if Rh neg): 3rd Tri Labs: [] CBC/HIV/RPR/T&S: [] GBS: [] GC/CT (if indicated): [] testing: Counseling [x] MOD: vaginal [x] Place of delivery: with primary Immunizations Immunization Administration Dates Next Due DTP 12/21/1993 HPV, Quadrivalent 02/08/2008 Influenza, Quadrivalent, Split, Intramuscular Influenza, Quadrivalent, Spl it, Preservative Free, Intramuscular 10/12/2022 Influenza, Trivalent, IM (MDV) 07/17/2016 OPV 12/21/1993 Tdap 05/09/2021 Social History Tobacco Use Types Packs/Day Years Used Date Smoking Tobacco: Every Day Cigarettes 0.3 22.6 Started: 2002 Smokeless Tobacco: Never Tobacco Cessation:Ready to Q uit: Not Asked; Counseling Given: Not Answered Social Connection and Isolat ion Panel [NHANES] Answer Date Recorded In a typical week, how many times do you talk on the phone with family, friends, or neighbors? More than three times a week 10/11/2022 How often do you get togethe r with friends or relatives? More than three times a week 10/11/2022 How often do you attend chur ch or confucianism services? Never 10/11/2022 Do you belong to any clubs o r organizations such as confucianism groups, unions, fraternal or athletic groups, or school groups? No 10/11/2022 How often do you attend meet ings of the clubs or organizations you belong to? Never 10/11/2022 Are you , , di vorced, , never , or living with a partner? Living with partner 10/11/2022 AUDIT-C Answer Date Recorded Q1: How often do you have a drink containing alc ohol? Never 2023 Average Number of Drinks Not on file 023 Q3: How often do you have si x or more drinks on one occasion? Never 2023 Overall Financial Resource Strain (CARDIA) Answe r Date Recorded How hard is it for you to pa y for the very basics like food, housing, medical care, and heating? Not very hard 10/11/2022 PHQ-2 Answer Date Recorded PHQ-2 Total Score (If total score is 3 or more points, staff should administer the PHQ-9) 6 11/16/2021 Hunger Vital Sign Answer Date Recorded Within the past 12 months, y ou worried that your food would run out before you got the money to buy more. Never true 10/11/19 23 Within the past 12 months, t he food you bought just didn't last and you didn't have money to get more. Never true 10/11/2022 PRAPARE - Transportation Answer Date Re corded In the past 12 months, has l ack of transportation kept you from medical appointments or from getting medications? No 12/2022 In the past 12 months, has l ack of transportation kept you from meetings, work, or from getting things needed for daily living? No 10/11/2022 Housing Stability Vital Sign Answer Ryland e Recorded In the last 12 months, was t here a time when you were not able to pay the mortgage or rent on time? No 10/11/2022 In the last 12 months, how many places have you lived? 2 10/11/2022 In the last 12 months, was t here a time when you did not have a steady place to sleep or slept in a fpc (including now)? No 10/11/2022 [place] Depression Scale Answer Date Recorded [place] Depression Scale Total 0 11/23/2022 The thought of harming myself has occurred to me . Never 11/23/2022 Personal Safety Answer Date Recorded Have you ever been in or are you currently in a harmful physical or emotional relationship or is someone making you feel afraid or unsafe? Denies 2023 Comments No Sex and Gender Information Value Date Recorded Sex Assigned at Not on file Legal Sex Female 4:13 AM MAILING MANAGER Gender Identity Female 09/20/2022 8:08 PM MAILING MANAGER Sexual Orientation Straight 09/20/2022 8: 08 PM MAILING MANAGER Last Filed Vital Signs Vital Sign Reading Time Taken Comments Blood Pressure 106/76 2023 2:50 PM CDT Pulse 78 2023 2:50 PM CDT Temperature 36.2 C (97.2 F) 2023 2:50 PM CDT Respiratory Rate 14 2023 2:50 PM CDT Oxygen Saturation 92% 2023 2:50 PM CDT Inhaled Oxygen Concentration - - Weight 61.2 kg (135 lb) 01/05/2023 5:10 PM CDT Height 157.5 cm (5' 2) 01/05/2023 5:10 PM CDT Body Mass Index 24.69 01/05/2023 5:10 PM CDT Plan of Treatment Not on file Procedures Procedure Name Priority Date/Time Associated Diagnosis Comments HEPATITIS C ANTIBODY Routine 05/19/2022 from Last 3 Months or Most Recently Relevant to Health Maintenance Results * Hepatitis C antibody (05/19/2022) SCRIBED HCV ab negative Blood Sixto Madrid MD LAB MICROBIOLOGY - GEN ERAL ORDERABLES Final Result from Last 3 Months or Most Recently Relevant to Health Maintenance Insurance [facility] Advance Directives For more information, please contact: [phone] * Full Code (Latest Code Status on File) Date Activated Date Inactivated Comments 10/10/2022 3:19 AM 10/12/2022 8:19 PM * Full Code Date Activated Date Inactivated Comments 10/09/2022 8:34 PM 10/10/2022 3:19 AM Full CPR in ca se of cardiopulmonary arrest Care Teams Political Worker Relationship Specialty Start Date End Date No, Physician PCP - General 09/23/22
--- OUTSIDE RECORDS SUMMARY | 2025-05-13 15:27 | XMS_ITS | Clinical Summary ---
Author Organization [facility] Address [address] Banuelos: Epic Prelude ADT ZAKI GALLARDO [address] Care Team Providers Care Show Host Or Hostess Name Role Phone Unavailable Primary Care Provider Unavailabl e Medications albuterol sulfate HFA 90 mcg/actuation aerosol inhaler Take 2 Puffs by inhalation 4 times daily as needed. 8.5 Gram 08/09/2024 3:17 PM CDT 4 Active cyclobenzaprine (FLEXERIL) 10 mg tablet Take 1 Tablet (10 mg) by mouth 3 times daily as needed. 20 Tablet 08/09/2024 3:17 PM CDT 4 Active inhalational spacing device (BreatheRite Valved MDI Chamber) Spacer Use as directed 1 Each 4 Active predniSONE (DELTASONE) 20 mg tablet Take 2 Tablets (40 mg) by mouth daily for 5 days 10 Tablet 08/09/2024 3:17 PM CDT 4 Active predniSONE (DELTASONE) 10 mg tablet Take 6 tablets by mouth on day 1, then 5 tabs on day 2, then 4 tabs on day 3, then 3 tabs on day 4, then 2 tabs on day 5, and 1 tab on day 6. 21 Tablet 4 Active Immunizations Immunization Administration Dates Next Due Influenza Seasonal Unspecified Formulation IM Social History Tobacco Use Types Packs/Day Years Used Date Smoking Tobacco: Never Assessed Comments Unknown Sex and Gender Information Value Date Recorded Sex Assigned at Not on file Legal Sex Female 6:07 PM CDT Gender Identity Not on file Sexual Orientation Not on file Plan of Treatment Health Maintenance Due Date Last Done Comments HPV VACCINES (1 - 3-dose series) 2006 DTAP/TDAP/TD VACCINES (1 - Tdap) 2010 HEPATITIS B VACCINES (1 of 3 - 19+ 3-dose series) 01/08 HPV/Cotest (21-29) 02/03/2012 CERVICAL CANCER SCREENING 2021 HPV/Cotest (30-65) 2021 PAP SMEAR 2021 INFLUENZA VACCINE (#1) 2025 06/27/2024 Insurance RX [facility]
--- OUTSIDE RECORDS SUMMARY | 2025-05-13 15:27 | XMS_ITS | Clinical Summary ---
Author Organization [facility] [employer] Address [address] [place] [address] Care Team Providers Care Legal Billing Coordinator Name Role Phone Lilliana Kay Pappas APRN-CLIENT SERVICES ADMINISTRATOR Primary Care Provider + Source Comments [facility] [employer],non-owned Affiliates and Associated Physician Practices is amultiple site organization consisting of ambulatory clinics and hospital sitesin [place], [place], [place] and [place]. This disclosure is being madepursuant to the Care Everywhere program and may not contain all information available regarding this patient. Last updated 18.[facility] [employer] Allergies Active Allergy Reactions Criticality Noted Date Comments Amlodipine Base Dizziness,Vomiting 10/06/2022 Amoxicillin Itching,Other 03/30/2021 Thrush, throat itching Clindamycin Unknown 03/30/2021 Labetalol Dizziness,Headache,N ause a and/or Vomiting,Palpitations,Vo miting Low 09/23/2022 Latex Swelling 03/30/2021 Facial swelling Penicillins Unknown 03/30/2021 Medications * This document contains information received from the source organization and may not represent a complete record from that organization. * Be aware that medications may not be up to date on this document. Alwaysverify current medications with the patient. nicotine (Nicotrol Ns) 10 MG/ML nasal sprayIndications :Nicotine Dependence [place] 1 (one) spray into each nostril every 1 hour as needed for Smoking Cessation Reasons: Nicotine Addiction 10 mL 1 3 Active Additional Information Patient not taking.Reported on 11/15/2023 propranolol (Inderal) 10 MG tabletIndication s:Anxiety and depression Take 1 (one) tablet by mouth 2 times daily 60 tablet 1 4 Active sertraline (Zoloft) 50 MG tablet Take 1.5 (one and one-half) tablets by mouth once daily 90 tablet 1 4 Active sertraline (Zoloft) 50 MG tabletIndication s:Anxiety disorder, unspecified TAKE ONE TABLET BY MOUTH ONCE DAILY 90 tablet 1 4 Active sertraline (Zoloft) 50 MG tablet TAKE 1.5 TABLETS BY MOUTH ONCE DAILY 135 tablet 1 4 Active Active Problems Problem Noted Date Diagnosed Date Epigastric pain 09/13/2023 Tobacco use 09/13/2023 Less than expected growth 05/05/2021 Assessment & Plan (05/05/2021 11:42 AM CDT): 04/30: EFW: 5%, AC: 4%. Dopplers normal. MFM Plan: 1. Continue twice weekly NST, weekly BPP/Doppler. Again, emphasized twice daily kick counts and to seek evaluation with decreased movment. 2. Repeat growth 1.5 weeks. Completing ultrasounds on Fridays in our office. Itching 05/05/2021 Overview (05/05/2021): Complaints of itching starting 05/03. Sent with order requisition for bile acids and CMP. Assessment & Plan (05/05/2021 11:45 AM CDT): Complaints of itching starting 05/03, without a rash present. Not as significant today thus far. Prefers to complete labs with primary [employer] for insurance coverage. Assures me she will attend primary OB visit today and complete labs. MFM Plan: 1. Sent with order requisition for bile acids and CMP. Call placed to primary [employer] as well that patient will need these labs ordered today at her care visit, spoke with Brooklynn who confirmed patient has appointment today and she will relay message to provider. Abnormal O'Barry glucose challenge test, ante 04/14/2021 Overview (04/14/2021): GCT: 157 Assessment & Plan (05/05/2021 11:47 AM CDT): GCT: 157. Did not complete 3 hour GTT with work and frequent appointments/testing for preeclampsia. Two values checked this week due to needle phobia, both normal. Less than expected growth with appropriate MARYJO. MFM plan: 1. Met with CDE today and again instructed on checking blood sugars 4 times daily: fasting, and one hour after each meal. Encouraged to bring log to next office visit and/or email to CDE in one week. Discussed if log is normal, will not need to keep checking. Encouraged her efforts with checking, discussed risks to including stillbirth if GDM is present for her . 2. Again emphasized kick counts as outlined in other plans. Assessment & Plan (04/14/2021 3:39 PM CDT): GCT: 157. Reports today no time to complete 3 hour GTT with work and frequent appointments/testing for preeclampsia. MFM plan: 1. Met with CDE today and instructed on checking blood sugars 4 times daily: fasting, and one hour after each meal. Encouraged to bring log to next office visit and/or email to CDE in one week. Discussed if log is normal, will not need to keep checking. Benign essential hypertension, antepartum 2020 Smoker 03/30/2021 IBS (irritable bowel syndrome) 03/30/2021 Anxiety and depression 03/30/2021 Assessment & Plan (04/14/2021 3:51 PM CDT): Reports appropriate mood, continues sertraline with benefit. Second 03/30/2021 Overview (05/05/2021): A+,Negative, Immune, RPR-NR, HIV-NR, HBsag-NR GBS: negative, 04/27 Preeclampsia, third trimester 03/30/2021 Overview (05/05/2021): (03/05/21 LABS): urine protein= 23 H; prot/creat ratio, urine = 0.3 H, uric acid 3.2; BUN 5, creat 0.58, ALT 12, AST 20 H/h/p: 12.0, 34.6, 257 repeat labs (04/12/21)LABS: creat: 0.80; uric acid 4.5; AST 20, ALT 12; h/h/Plts 11.4; 32.6;226; Uric acid 3.4, BUN 7, creat 0.7, ALT 13, AST 23, h/h/p: 11.1, 32.6, 233 (04/26/21) LABS: BUN 7, crea 0.70, uric acid 3.5, Alt 18, Ast 12, Total Protein 7.0, h/h/p: 11.0, 31.7, 227 (05/03/21) LABS: BUN: 5, creatinine: 0.70, AST: 22, ALT: 14, uric acid: 3.9, H/H/P: 11.7/33.5/208 B/P's in primary OB office: 12/18: 110/70 12/28: 106/80 02/11: 120/68 ( c/o +MOREIRA, elevated BP at work, went to L&D for eval, all ok) 03/11: 130/84 (c/o Lower abd pain) 03/25:142/88 (pt BP readings elevated 146/102, c/o lower abd pain) Primary OB is doing weekly NST's and HIP Labs and plans to start BPP's at 32 weeks with delivery at 37 weeks unless patient's condition changes. 24 hour urine collection - did not complete. Assessment & Plan (05/05/2021 2:25 PM CDT): Serial labs appropriate this week. Did not bring log to appointment today. Reports home values to be appropriate. B/p appropriate in office today with repeat evaluation. No current symptoms of preeclampsia. Less than expected growth 04/30: EFW: 5%, AC: 4%. Dopplers normal. [facility] Plan: 1. Instructions as previously outlined by MFM: Recommend delivery at 37 weeks gestation or sooner as clinically indicated. 2. Weekly labs with CBC and CMP--primary OB to completing and reviewing. 3. Check BP's at home document in a log-- encouraged to bring to visits. Patient to notify primary OB if severe HTN of greater than or equal to 160 mmHg for systolic BP and/or 110 mmHg for diastolic BP's. 4. Consider treating hypertension if blood pressure equal to or >155/95, either value. 5. Report to primary [facility] [employer] right away if experiencing symptoms of preeclampsia, reviewed symptoms again today. 6. Encouraged twice daily kick counts, seek evaluation if having decreased movement, promptly. 7. Weekly BPP, weekly doppler, twice weekly NST. Completed NST on Monday, will return here Monday for BPP/Doppler/NST. 8. Changes in serum laboratory tests or persistent severe features of preeclampsia are more objective criteria to make the diagnosis of severe preeclampsia, verses mild changes in blood pressure or proteinuria. 9. Should be seen by obstetrical provider once weekly. Assessment & Plan (04/14/2021 4:00 PM CDT): 04/12 labs: CMP: creatinine: 0.8, BUN: 6, AST: 20, ALT: 12. H/H: 11.4/32.8, platelets: 226. Did not bring log to appointment today. Reports home values to be normotensive. B/p appropriate in office today with repeat evaluation. No current symptoms of preeclampsia. Reassuring testing. [facility] Plan: 1. Instructions as previously outlined by [facility]: Recommend delivery at 37 weeks gestation or sooner as clinically indicated. 2. Weekly labs with CBC and CMP--primary OB to completing. Check 24 hour urine for protein and CrCl--please send if completed outside of protein/creatinine ratio. 3. Check BP's several times per day and document in a log. Patient to notify primary OB if severe HTN of greater than or equal to 160 mmHg for systolic BP and/or 110 mmHg for diastolic BP's. 4. Report to primary [facility] [employer] right away if experiencing symptoms of preeclampsia, reviewed symptoms in detail with patient today. 5. Encouraged twice daily kick counts, seek evaluation if having decreased movement, promptly. 6. Admission for remainder of if develops preeclampsia with severe features with delivery by 34 weeks gestation if this occurs. 7. Weekly BPP. Add twice weekly NST at 32 weeks gestation-- planning to do once here at [facility] and once at [facility]. 8. Changes in serum laboratory tests or persistent severe features of preeclampsia are more objective criteria to make the diagnosis of severe preeclampsia, verses mild changes in blood pressure or proteinuria. 9. Should be seen by obstetrical provider once weekly. Immunizations Immunization Administration Dates Next Due INFLUENZA VACCINE, TRIV. (AF LURIA, FLUZONE TRIVALENT; 6MO+) (IIV3) 07/17/2016 Covid Pfizer primary monoval ent 12+ yr 0.3mL Purple cap 12/18/2020,09/29/2020 DTP 12/21/1993 FLU VACCINE QUAD IIV4 SPLIT 0.25 ML IM 9 FLU, HISTORIC VACCINE 07/10/2023 Human Papilloma Virus Quadrivalent Vaccine 02/07 INFLUENZA VACCINE, QUADR. (F LUZONE; FLULAVAL; FLUARIX; AFLURIA QUADRIVALENT; 6MO+), 0.5 ML (IIV4) 10/12/2022 POLIO OPV 12/21/1993 TDAP (7yrs+) 05/09/2021 TDAP, HISTORIC VACCINE 08/05/2022 Family History Medical History Relation Name Comments Cancer - Breast Maternal Aunt Alcohol abuse Maternal Grandfather Cancer - Colon Maternal Grandfather Diabetes - Type 2 Maternal Grandfather Hypertension Maternal Grandfather Cancer - Breast Maternal Grandmother Cancer - Liver Maternal Grandmother Diabetes - Type 2 Maternal Grandmother Hypertension Maternal Grandmother Cancer - Colon Maternal Great-Grandfather Cancer - Breast Maternal Great-Grandmother Cancer - Breast Paternal Grandmother Cancer - Colon Paternal Grandmother Relation Name Status Comments Maternal Aunt Alive Maternal Grandfather Maternal Grandmother Maternal Great-Grandfather Maternal Great-Grandmother Paternal Grandmother Social History Tobacco Use Types Packs/Day Years Used Date Smoking Tobacco: Every Day Cigarettes 1 18 Smokeless Tobacco: Never Tobacco Cessation:Ready to Q uit: Not Asked; Counseling Given: Not Answered Alcohol Use Standard Drinks/Week Comments Never 0 (1 standard drink = 0.6 oz pur e alcohol) PHQ-2 Answer Date Recorded Patient Health Questionnaire-2 Score 6 03/26/2024 Comments No Sex and Gender Information Value Date Recorded Sex Assigned at Not on file Legal Sex Female 2:57 PM CDT Gender Identity Not on file Sexual Orientation Not on file Last Filed Vital Signs Vital Sign Reading Time Taken Comments Blood Pressure 110/70 03/26/2024 10:02 AM CDT Pulse 72 03/26/2024 10:02 AM CDT Temperature - - Respiratory Rate 18 03/26/2024 10:02 AM CDT Oxygen Saturation 99% 03/26/2024 10:02 AM CDT Inhaled Oxygen Concentration - - Weight 56.2 kg (124 lb) 03/26/2024 10:02 AM CDT Height 157.5 cm (5' 2) 03/26/2024 10:02 AM CDT Body Mass Index 22.68 03/26/2024 10:02 AM CDT Plan of Treatment Health Maintenance Due Date Last Done Comments HPV VACCINE (2 - 3-dose series) 03/07/2008 02/08/2008 PNEUMOCOCCAL VACCINE (1 of 2 - PCV) 2010 PAP SMEAR 02/03/2012 COVID-19 VACCINE (3 - season) 2024 12/18/2020, 09/29/2020 DEPRESSION SCREENING 10/09/2024 03/26/2024, 09/13/20 23 INFLUENZA VACCINE (#1) 2025 , 10/12/2022, 08/09/2019, Additional history exists DTAP/TDAP/TD VACCINES (4 - Td or Tdap) 08/05/2032 08/05/2022, 05/09/2021, 12/21/1993 ZOSTER VACCINE (1 of 2) 2041 HEPATITIS C SCREENING Completed 09/18/2023 HIV SCREENING Completed 09/18/2023 HEPATITIS B VACCINE Discontinued HIB VACCINE Aged Out No longer eligi ble based on patient's age to complete this topic MENINGOCOCCAL (Group B) VACCINE SHARED DECISION-MAKING Aged Out No longer eligible based on patient's age to complete this topic MENINGOCOCCAL GROUPS A/C/Y/W VACCINE Aged Out No longer eligible based on patient's age to complete this topic Procedures Procedure Name Priority Date/Time Associated Diagnosis Comments HEPATITIS C ANTIBODY Routine 09/18/2023 8:58 AM LEAD CASTER Need for hepatitis C screening test HIV-1 HIV-2 ANTIBODY + HIV P24 AG PANEL Routine 09/18/2023 8:58 AM LEAD CASTER Screening for HIV without presence of risk factors from Last 3 Months or Most Recently Relevant to Health Maintenance Results * HIV-1 HIV-2 ANTIBODY + HIV P24 AG PANEL ([facility]) (09/18/2023 8:58 AM LEAD CASTER) HIV Antigen/Antibod y 1 & 2 Non-reacti ve Non-react polly 09/18/2023 11:34 AM LEAD CASTER [facility] Comment:No Laboratory eviden ce of HIV infection. Blood BLOOD SPECIMEN / Unknown Lab Venipuncture / Unknown 09/18/2023 8:58 AM LEAD CASTER 09/18/2023 10:11 AM LEAD CASTER Kay Tijerina APRN-CLIENT SERVICES ADMINISTRATOR LAB - CHEMISTRY ORDERABL ES Final Result [facility] [address] [place] [address], [place] [phone] * HEPATITIS C ANTIBODY ([facility]) (09/18/2023 8:58 AM LEAD CASTER) Hepatitis C Antibody Non-react polly Non-reac tive 09/18/2023 11:34 AM LEAD CASTER [facility] Comment:Hepatitis C Antibody screen indicates no serologic evidence of past or current infection with Hepatitis C Virus. Patients with unexplained liver disease who are immunocompromised or suspected of having acute Hepatitis C infection may benefit from Nucleic Acid Test ([facility]) for Hepatitis C Viral RNA to confirm Hepatitis C status. Blood BLOOD SPECIMEN / Unknown Lab Venipuncture / Unknown 09/18/2023 8:58 AM LEAD CASTER 09/18/2023 10:11 AM LEAD CASTER Kay Tijerina APRN-CLIENT SERVICES ADMINISTRATOR LAB - CHEMISTRY ORDERABL ES Final Result [facility] [address] [place] [id number], [place] [phone] from Last 3 Months or Most Recently Relevant to Health Maintenance Care Teams Legal Billing Coordinator Relationship Specialty Start Date End Date Kay Tijerina APRN-CNP [address] [phone] PCP - General Nurse Practitioner 09/11/23
--- OUTSIDE RECORDS SUMMARY | 2025-05-13 15:27 | XMS_ITS | Clinical Summary ---
Author Organization [facility] Address [address] [place] [address] Care Team Providers Care Air Cargo Ground Operations Supervisor Name Role Phone No, Physician Primary Care Provider [phone] Allergies Active Allergy Reactions Criticality Noted Date [...] able to be found in outside records. MD Medicaid consents signed on admission 10/09 and will be for interval tubal. Undecided regarding bridge method. # MOF: . Urine drug screen not indicated. Patient informed of results: N/A. # COVID Vaccination Status: Previously received # Disposition: Follow up to be scheduled with primary OB. Desires discharge home today. Gestational hypertension, antepartum 10/06/2022 Overview (10/06/2022): Mild range BP in [facility] 10/05 and reported elevated blood pressures at primary OB the week before prompting start of an antihypertensive. Ruled out for Pre-E 10/05 in [facility] Maternal care for poor growth, third trimester, fetus 1 09/23/2022 Overview (10/05/2022): Toño's is dated by a 17 week ultrasound that was consistent with a sure LMP. Her last baby was [id number] at 35 weeks and continues to be a shorter child. Last growth (at [facility]): 1981g, 7th%ile, AC 11%ile. long bones symmetrically shortened below the 1st %ile but morphologically normal. Skeletal dysplasia thought unlikely but cannot be excluded. S/p counseling 09/23/22 Plan [x] Genetic testing: declines [] Weekly BPP/Dopplers and weekly NST [] Delivery recommended at [id number]. No contraindications to a vaginal delivery. History [...] Toño to utilize the resource of the [employer] Quit Hotline, whose phone number is 6-400-YIMQNOW. 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 [...] indicated. Patient informed of results: N/A 6. [facility]: reports signed consents this month, not visualized in the chart. Signed [place] consents 10/09/22. Undecided on bridge contraception, does [...] but cannot be excluded. Previous baby was [id number] at 35 weeks and continues to be a shorter child. Last growth 09/21: 1981g, 7th%ile, AC 11%ile. #gHTN/h/o PreE: pt started on [id number] daily by primary OB in 3T for reported MR BP. Had MR BP in [facility] clinic 10/05 and MOREIRA. Went to [facility] for r/o PreE and had another MR [...] by her primary, confirmed on ultrasound at [facility] 09/21. Mild, MARYJO 24.9. 1 hour [...] - 130/90. Current headache. Will send to [facility] for rule out preeclampsia. Precautions reviewed and patient amenable to plan. Recommend discontinuing Nifedipine. Polyhydramnios in third trim aditi, not applicable or unspecified fetus 09/20/2022 11/23/19 Overview (10/06/2022): History - Diagnosed on third trimester growth for size>dates by her primary, confirmed on ultrasound at [facility] 09/21. Mild, MARYJO 24.9. 1 hour [...] Overview (10/04/2022): [] Co-management vs. [x] Full [facility] Care; [] Red Team [] Blue Team full CHRISTO to [facility] as of 10/04/22 per Farshad, email to financial team on 10/04-jl Referring Provider: Sixto Madrid [phone]: ultrasounds here, plan for no further visits [...] IM (MDV) 07/17/2016 OPV 12/21/1993 Tdap 05/09/2021 Surgical History Surgery Date Site/Laterality Comments DILATION AND CURETTAGE OF UTERUS UPPER GASTROINTESTINAL ENDOSCOPY Medical History Medical History Date Comments IBS (irritable bowel syndrome) Anxiety Post depression Delayed emergence from general anesthesia Family History Medical History Relation Name Comments Hypertension Maternal Grandmother Hyperte nsion; Anesthesia problems Mother delayed emergence Other Other 4 Family history of Cancer, liver; Breast cancer Other 5 Family history of Cancer, breast; Cause of : Family history of Cancer, breast Colon cancer Other 6 Family history of Cancer, colon; Cause of : Family history of Cancer, colon Diabetes Other 7 Family history of Diabetes mellitus; Relation Name Status Comments Father Maternal Grandmother Mother Alive Other 1 Other 2 Other 3 Other 4 Other 5 Other 6 Other 7 Social History Tobacco Use Types Packs/Day Years [...] 10/11/2022 How often do you attend chur Prescreen or mormonism services? Never 10/11/2022 Do you belong to any clubs o r organizations such as religion groups, unions, fraternal or athletic groups, or [...] place to sleep or slept in a snf (including now)? No 10/11/2022 [place] Depression Scale Answer Date Recorded [place] Depression Scale Total 0 11/23/2022 The thought [...] on file Legal Sex Female 4:13 AM MERCURY CRACKING TESTER Gender Identity Female 09/20/2022 8:08 PM MERCURY CRACKING TESTER Sexual Orientation Straight 09/20/2022 8: 08 PM MERCURY CRACKING TESTER Obstetrics History Para Term AB IAB SAB Ectopic Multiple Livin g Live Births 3 1 1 1 1 1 1 Date Outcome GA Total Labor Labor/2nd/3rd Weight Sex Type Anes PTL Johanny A1 A5 Name Clin 020 SAB 021 35w 1d 2.126 kg (4 lb 11 oz) M Vag-S pont Epidur al Livin g Complications:Pre eclampsia Last Filed Vital Signs Vital Sign Reading [...] 01/05/2023 5:10 PM CDT Plan of Treatment Health Maintenance Due Date Last Done Comments Cervical Cancer Screening 1991 Varicella Vaccines (1 of 2 - 13+ 2-dose series) 02/03/2004 HPV Vaccines (2 - 3-dose series) 03/07/2008 02/08/20 08 Hepatitis B Screening 2009 Regular Well Visit/Exam 18-64 2009 Pneumococcal vaccine <65 (1 of 2 - PCV) 2010 Depression Screening 11/23/2023 11/23/2022, 11/16/2021, 11/16/2021 Covid-19 Vaccine (3 - 2023- season) 06/09/202409/2021, 09/29/2020 Influenza Vaccine (#1) 2025 , 08/09/2019, 07/17/2016 DTaP/Tdap/Td Vaccine (3 - Td or Tdap) 05/09/203110/2020, 12/21/1993 Hepatitis C Screening Completed 05/19/2022 Procedures Procedure Name Priority Date/Time Associated Diagnosis Comments HEPATITIS C ANTIBODY Routine 05/19/2022 from Last 3 Months or Most Recently Relevant to Health Maintenance Results * Hepatitis C antibody (05/19/2022) SCRIBED HCV ab negative Blood Sixto Madrid MD LAB MICROBIOLOGY - GEN ERAL ORDERABLES Final Result from Last 3 Months or Most Recently Relevant to Health Maintenance Insurance [facility] Advance Directives For more information, please contact: [phone] * Full Code (Latest Code Status on File) Date Activated Date Inactivated Comments 10/10/2022 3:19 AM 10/12/2022 8:19 PM * Full Code Date Activated Date Inactivated Comments 10/09/2022 8:34 PM 10/10/2022 3:19 AM Full CPR in ca se of cardiopulmonary arrest Care Teams Air Cargo Ground Operations Supervisor Relationship Specialty Start Date End Date No, Physician PCP - General 09/23/22
--- OUTSIDE RECORDS SUMMARY | 2025-05-13 15:28 | XMS_ITS | Clinical Summary ---
Author Organization [facility] Address [address] [facility] [[email or web address] [address] [place] [address] Phone Care Team Providers Care Senior Security Engineer Name Role Phone Provider, None Primary Care Provider Unavailabl e Allergies Active Allergy Reactions Criticality Noted Date Comments Amoxicillin Hives,Rash 09/15/2015 Latex Rash 09/15/2015 Penicillins Rash 09/18/2015 Medications Etonogestrel (NEXPLANON SC) by Subcutaneous route. Active ondansetron (ZOFRAN) 4 MG Tablet Take 1 Tablet by mouth every 6 hours as needed for Nausea - 1st line. 20 Tablet 1 Active Active Problems No known active problems Immunizations Immunization Administration Dates Next Due Influenza Vaccine greater than 3 yrs 07/17/2016 Family History Relation Name Status Comments Father Other Mother Alive Social History Tobacco Use Types Packs/Day Years Used Date Smoking Tobacco: Every Day Cigarettes 1 5 Smokeless Tobacco: Never Tobacco Cessation:Ready to Q uit: No; Counseling Given: Yes Alcohol Use Standard Drinks/Week Comments Yes 0 (1 standard drink = 0.6 oz pur e alcohol) Rarely Sexually Active Control Partners Comments Yes Implant Comments No Sex and Gender Information Value Date Recorded Sex Assigned at Not on file Legal Sex Female 12:26 AM CDT Gender Identity Not on file Sexual Orientation Not on file Last Filed Vital Signs Vital Sign Reading Time Taken Comments Blood Pressure 114/66 09/18/2021 6:35 PM SPEED READING TEACHER Pulse 99 09/18/2021 6:35 PM SPEED READING TEACHER Temperature 36.4 C (97.6 F) 09/18/2021 1:10 PM SPEED READING TEACHER Respiratory Rate 16 09/18/2021 6:35 PM SPEED READING TEACHER Oxygen Saturation 100% 09/18/2021 6:35 PM SPEED READING TEACHER Inhaled Oxygen Concentration - - Weight 68 kg (150 lb) 09/18/2021 1:10 PM SPEED READING TEACHER Height 157.5 cm (5' 2) 09/18/2021 1:10 PM SPEED READING TEACHER Body Mass Index 27.44 09/18/2021 1:10 PM SPEED READING TEACHER Plan of Treatment Health Maintenance Due Date Last Done Comments Hepatitis C Virus (HCV) Screening 1991 Human Papillomavirus (HPV) Immunization (2 - 3-dose series) 03/07/2008 02/08/2008 Hepatitis B Immunization (1 of 3 - 19+ 3-dose series) 2010 Pap Smear 02/03/2012 Cervical Cancer Screening (CCS) 2021 HPV/Cotest 2021 SARS-COV-2 Immunization ( season) 2024 12/18/2020, 09/29/2020 Influenza Immunization (#1) 2025 11/0 10/2018, 07/17/2016 Respiratory Syncytial Virus (RSV) Immunization (Adult) (1 - 1-dose 75+ series) 2066 TdaP Immunization Completed 05/09/2021 Meningococcal Immunization (ACWY) Aged Out No longer eligible b ased on patient's age to complete this topic Pneumococcal Immunization Combined Aged Out No longer eligible b ased on patient's age to complete this topic Rotavirus Immunization Aged Out No lo nger eligible based on patient's age to complete this topic Insurance MEDICAID [facility] [employer] ATTN CLAIMS DEPT [place] [id number] Care Teams Senior Security Engineer Relationship Specialty Start Date End Date Provider, None [place] PCP - General 03/25/21
== END 2025-05-13 15:21 | disposition home or self-care (01) ==
LOC: ANHIMG 15:25
PROVIDERS: PCP Family Medicine; Visit Provider Physician Assistant Medical
DX: R06.2 Wheezing (principal); R06.02 Shortness of breath
CPT/HCPCS: 71046

== ENCOUNTER 2025-05-29 09:43 | Emergency (ER) | payer OTHER, SELFPAY ==
[2025-05-29 09:50] VITALS: BP 131/76; PULSE 79; RESP 16; TEMP 36.1; O2SAT 100
--- OUTSIDE RECORDS SUMMARY | 2025-05-29 10:15 | XMS_ITS | Clinical Summary ---
Author Organization [facility] Address [address] [facility] [address] [place] [address] Phone Care Team Providers Care Dryerman/Woman Name Role Phone Provider, None Primary Care [...] Comments Blood Pressure 114/66 09/18/2021 6:35 PM EXPERIMENTAL MECHANIC OUTBOARD MOTORS Pulse 99 09/18/2021 6:35 PM EXPERIMENTAL MECHANIC OUTBOARD MOTORS Temperature 36.4 C (97.6 F) 09/18/2021 1:10 PM EXPERIMENTAL MECHANIC OUTBOARD MOTORS Respiratory Rate 16 09/18/2021 6:35 PM EXPERIMENTAL MECHANIC OUTBOARD MOTORS Oxygen Saturation 100% 09/18/2021 6:35 PM EXPERIMENTAL MECHANIC OUTBOARD MOTORS Inhaled Oxygen Concentration - - Weight 68 kg (150 lb) 09/18/2021 1:10 PM EXPERIMENTAL MECHANIC OUTBOARD MOTORS Height 157.5 cm (5' 2) 09/18/2021 1:10 PM EXPERIMENTAL MECHANIC OUTBOARD MOTORS Body Mass Index 27.44 09/18/2021 1:10 PM EXPERIMENTAL MECHANIC OUTBOARD MOTORS Plan of Treatment Health Maintenance Due Date [...] age to complete this topic Insurance MEDICAID [employer] ATTN CLAIMS DEPT [place] [id number] Care Teams Dryerman/Woman Relationship Specialty Start Date End Date Provider, None [place] PCP - General 03/25/21
--- OUTSIDE RECORDS SUMMARY | 2025-05-29 10:15 | XMS_ITS | Clinical Summary ---
Author Organization [facility] Address [address] Banuelos: Epic Prelude ADT [place] [address] Care Team Providers Care Footwear Sales Representative Name Role Phone Unavailable Primary Care Provider [...]
--- OUTSIDE RECORDS SUMMARY | 2025-05-29 10:15 | XMS_ITS | Clinical Summary ---
Author Organization [facility] Address [address] [place] [address] Care Team Providers Care Terrazzo Laborer Name Role Phone No, Physician Primary Care Provider [phone] Allergies Active Allergy Reactions Criticality Noted Date [...] able to be found in outside records. [place] Medicaid consents signed on admission 10/09 and will be for interval tubal. Undecided regarding bridge method. # MOF: . Urine drug screen not indicated. Patient informed of results: N/A. # COVID Vaccination Status: Previously received # Disposition: Follow up to be scheduled with primary OB. Desires discharge home today. Gestational hypertension, antepartum 10/06/2022 Overview (10/06/2022): Mild range BP in [facility] 10/05 and reported elevated blood pressures at primary OB the week before prompting start of an antihypertensive. Ruled out for Pre-E 10/05 in [facility] Maternal care for poor growth, third trimester, fetus 1 09/23/2022 Overview (10/05/2022): Toño's is dated by a 17 week ultrasound that was consistent with a sure LMP. Her last baby was [id number] at 35 weeks and continues to be a shorter child. Last growth (at [facility]): 1981g, 7th%ile, AC 11%ile. long bones symmetrically shortened below the 1st %ile but morphologically normal. Skeletal dysplasia thought unlikely but cannot be excluded. S/p counseling 09/23/22 Plan [x] Genetic testing: declines [] Weekly BPP/Dopplers and weekly NST [] Delivery recommended at [id number]. No contraindications to a vaginal delivery. History [...] Toño to utilize the resource of the [place] Quit Hotline, whose phone number is 2-204-BCWWNOW. 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 Patient informed of results: N/A 6. [facility]: reports signed consents this month, not visualized in the chart. Signed [place] consents 10/09/22. Undecided on bridge contraception, does [...] but cannot be excluded. Previous baby was [id number] at 35 weeks and continues to be a shorter child. Last growth 09/21: 1981g, 7th%ile, AC 11%ile. #gHTN/h/o PreE: pt started on NXL60 daily by primary OB in 3T for reported MR BP. Had MR BP in [facility] clinic 10/05 and [facility]. Went to [facility] for r/o PreE and had another MR [...] - 130/90. Current headache. Will send to [facility] for rule out preeclampsia. Precautions reviewed and [...] Overview (10/04/2022): [] Co-management vs. [x] Full [facility] Care; [] Red Team [] Blue Team full CHRISTO to [facility] as of 10/04/22 per Farshad, email to financial team on 10/04-jl Referring Provider: Sixto Madrid [phone]: ultrasounds here, plan for no further visits [...] Counseling Given: Not Answered Social Connection and Isolation Panel Answer Date Recorded In a typical week, how many times do you talk on the phone with family, friends, or neighbors? More than three times a week 10/11/2022 How often do you get togethe r with friends or relatives? More than three times a week 10/11/2022 How often do you attend chur or mandaen services? Never 10/11/2022 Do you belong to any clubs o r organizations such as jehovah's witness groups, unions, fraternal or athletic groups, or [...] in a fpc (including now)? No 10/11/2022 [place] Depression Scale Answer Date Recorded [place] Depression Scale Total 0 11/23/2022 The thought [...] on file Legal Sex Female 4:13 AM DIRECTOR OF RECRUITMENT AND ADMISSIONS Gender Identity Female 09/20/2022 8:08 PM DIRECTOR OF RECRUITMENT AND ADMISSIONS Sexual Orientation Straight 09/20/2022 8: 08 PM DIRECTOR OF RECRUITMENT AND ADMISSIONS Obstetrics History Para Term AB IAB SAB [...] Screening 11/23/2023 11/23/2022, 11/16/2021, 11/16/2021 Covid-19 Vaccine ( - season) 06/09/202409/2021, 09/29/2020 Influenza Vaccine (#1) 2025 [...] Most Recently Relevant to Health Maintenance Insurance [facility] Advance Directives For more information, please contact: [phone] * Full Code (Latest Code Status on File) Date Activated Date Inactivated Comments 10/10/2022 3:19 AM 10/12/2022 8:19 PM * Full Code Date Activated Date Inactivated Comments 10/09/2022 8:34 PM 10/10/2022 3:19 AM Full CPR in ca se of cardiopulmonary arrest Care Teams Terrazzo Laborer Relationship Specialty Start Date End Date No, Physician PCP - General 09/23/22
--- OUTSIDE RECORDS SUMMARY | 2025-05-29 10:15 | XMS_ITS | Patient Health Record ---
Author Organization [facility] Address [address] [place] [address] Care Team Providers Care Supply Cataloguer Name Role Phone Jason Lyon Unavailable [phone] Reason For Referral No Information Medications Medication SIG (Take, Route, Frequency, Duration) Notes Start Date End Date Status DULoxetine HCl 30 MG Capsule Delayed Release Particles Oral 09/21/2021 Active Social History Social History Additional Details Category Social Info Options Details Migrated Social History Migrated Social History Alcohol Intake: None 09/21/2021,Tobacco Years: Current every day smoker 09/21/2021,Smoking Status: 19 09/21/2021 Plan Of Treatment No Information Insurance Providers Payer Name Payer Address Payer Phone Subscriber Number Group Number Insured Name Patient Relationship to Insured Coverage Start Date Coverage End Date [facility] [address] [place] [address] [id number] HAWK CEBALLOS Self - patient is the insured Medical (General) History Surgical History Surgery Date(Month/Year) Dilation and curettage (10353) 1
--- OUTSIDE RECORDS SUMMARY | 2025-05-29 10:15 | XMS_ITS | Clinical Summary ---
Author Organization [facility] Address [address] [place] [address] Care Team Providers Care Audio/Visual Manager Name Role Phone Kay Tijerina APRN-GLASS FINISHER Primary Care Provider + Source Comments [facility],non-owned Affiliates and Associated Physician Practices is amultiple site organization consisting of ambulatory clinics and hospital sitesin [place], [place], [place] and [place]. This disclosure is being madepursuant to the Care Everywhere program and may not contain all information available regarding this patient. Last updated 18.[facility] Allergies Active Allergy Reactions Criticality Noted Date [...] Ns) 10 MG/ML nasal sprayIndications :Nicotine Dependence [place] 1 (one) spray into each nostril every [...] far. Prefers to complete labs with primary Environmental Projects Advisor for insurance coverage. Assures me she will attend primary OB visit today and complete labs. [facility] Plan: 1. Sent with order requisition for bile acids and CMP. Call placed to primary Environmental Projects Advisor as well that patient will need these [...] 04/30: EFW: 5%, AC: 4%. Dopplers normal. [facility] Plan: 1. Instructions as previously outlined [...] >155/95, either value. 5. Report to primary Environmental Projects Advisor right away if experiencing symptoms of preeclampsia, [...] No current symptoms of preeclampsia. Reassuring testing. [facility] Plan: 1. Instructions as previously outlined by [facility]: Recommend delivery at 37 weeks gestation [...] for diastolic BP's. 4. Report to primary Environmental Projects Advisor right away if experiencing symptoms of preeclampsia, [...] gestation-- planning to do once here at [facility] and once at [facility]. 8. Changes in serum laboratory tests or [...] HEPATITIS C ANTIBODY Routine 09/18/2023 8:58 AM HVAC R TECH Need for hepatitis C screening test HIV-1 HIV-2 ANTIBODY + HIV P24 AG PANEL Routine 09/18/2023 8:58 AM HVAC R TECH Screening for HIV without presence of risk factors from Last 3 Months or Most Recently Relevant to Health Maintenance Results * HIV-1 HIV-2 ANTIBODY + HIV P24 AG PANEL ([facility]) (09/18/2023 8:58 AM HVAC R TECH) HIV Antigen/Antibod y 1 & 2 Non-reacti ve Non-react polly 09/18/2023 11:34 AM HVAC R TECH [facility] Comment:No Laboratory eviden ce of HIV infection. Blood BLOOD SPECIMEN / Unknown Lab Venipuncture / Unknown 09/18/2023 8:58 AM HVAC R TECH 09/18/2023 10:11 AM HVAC R TECH Kay Tijerina APRN-GLASS FINISHER LAB - CHEMISTRY ORDERABL ES Final Result [facility] [address] [place] [address], [place] [phone] * HEPATITIS C ANTIBODY ([facility]) (09/18/2023 8:58 AM HVAC R TECH) Hepatitis C Antibody Non-react polly Non-reac tive 09/18/2023 11:34 AM HVAC R TECH [facility] Comment:Hepatitis C Antibody screen indicates no serologic evidence of past or current infection with Hepatitis C Virus. Patients with unexplained liver disease who are immunocompromised or suspected of having acute Hepatitis C infection may benefit from Nucleic Acid Test ([facility]) for Hepatitis C Viral RNA to confirm Hepatitis C status. Blood BLOOD SPECIMEN / Unknown Lab Venipuncture / Unknown 09/18/2023 8:58 AM HVAC R TECH 09/18/2023 10:11 AM HVAC R TECH Kay Tijerina APRN-GLASS FINISHER LAB - CHEMISTRY ORDERABL ES Final Result [facility] [address] [place] [address], [place] [phone] from Last 3 Months or Most Recently Relevant to Health Maintenance Care Teams Audio/Visual Manager Relationship Specialty Start Date End Date Kay Tijerina APRN-CNP [address] [id number] PCP - General Nurse Practitioner 09/11/23
--- NOTE | 2025-05-29 10:22 | ED_ITS ---
HPI - Headache General Chief Complaint: Headache Stated Complaint: Headache Time Seen by Provider: 05/29/25 10:23 Source: patient Mode of arrival: ambulatory Limitations: no limitations History of Present Illness HPI Narrative: 35 yo F presents with c/o headache, bilateral ear pain and pressure, nausea starting yesterday. Afebrile. Reports mild cough this AM. No congestion. Taking ibuprofen and tylenol to treat pain. All systems reviewed and negative except as noted above. Related Data Allergies Allergy/AdvReac Type Severity Reaction Status Date / Time labetalol Allergy Severe Vomiting Verified 05/29/25 10:19 latex Allergy Mild Rash Verified 05/29/25 10:19 cefdinir Allergy Swelling Verified 05/29/25 10:19 of the Eye clindamycin AdvReac Mild Headache Verified 05/29/25 10:19 Penicillins AdvReac Mild MOUTH SORES Verified 05/29/25 10:19 PMFSH Past Medical History Medical History Loss of teeth due to extraction Nausea H/O: depression Anxiety Migraine IBS (irritable bowel syndrome) Surgical History Surgical History H/O bilateral salpingectomy H/O gynecological procedure (~06/2021) Nexplanon removal History of hysteroscopy (~07/05/21) [place] teeth removed Hx of endoscopy H/O local excision of skin lesion Family History Family History Grandparent Hypertension Grandparent Diabetes mellitus Other Bipolar disorder Other Carcinoma of cervix Mother Cyst of breast Social History Social History Smoking packs per day: 0.25 Smoking cigarettes per day: 5.0 Years smoked: 15 Smoking pack-years: 3.75 Smoking status: Current every day smoker Tobacco type: cigarettes and e-cigarettes/vaping Second hand tobacco smoke exposure: Yes Alcohol intake: unknown Substance use: never Living arrangements: with family 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 There is no relevant family history pertinent to the presenting complaint. Exam Narrative: GENERAL: This is a well-nourished, well-developed patient, in no apparent distress. HEAD: normocephalic, atraumatic. EYES: PERRL. Sclera clear/white. Vision is grossly intact. Extraocular motions intact. EARS: External ears normal, auditory canals clear and without drainage, Bilateral TMs are erythematous and bulging without perforation. Hearing grossly intact. NOSE: External nose normal with no obvious nasal discharge, nares without redness, no rhinorrhea. THROAT: Mucous membranes moist, posterior pharynx clear. NECK: Neck supple, non-tender without lymphadenopathy, masses or thyromegaly. CARDIOVASCULAR: Regular rate and rhythm without murmurs, gallops, or rubs. RESPIRATORY: Clear to auscultation. Breath sounds equal bilaterally. No wheezes, rales, or rhonchi. SKIN: warm, Dry, intact with no suspicious lesions or rash, good texture and turgor. NEURO: awake, alert, and oriented to person, place and time. There were no obvious focal neurologic abnormalities. EXTREMITIES: No joint tenderness, effusion, or edema noted. Course Course Level of Care: Express Care Visit Vital Signs Vital signs: Vital Signs Temperature 36.1 C L 05/29/25 09:50 Pulse Rate 79 05/29/25 09:50 Respiratory Rate 16 05/29/25 09:50 Blood Pressure 131/76 05/29/25 09:50 Pulse Oximetry 100 05/29/25 09:50 Oxygen Delivery Room Air 05/29/25 09:50 Temperature 36.1 C L 05/29/25 09:50 Pulse Rate 79 05/29/25 09:50 Respiratory Rate 16 05/29/25 09:50 Blood Pressure 131/76 05/29/25 09:50 Pulse Oximetry 100 05/29/25 09:50 Oxygen Delivery Room Air 05/29/25 09:50 Reviewed MDM - Headache MDM Narrative Medical decision making narrative: patient was given Zofran ODT and reports nausea resolved. She was offered Toradol for headache and refused. Will take ibuprofen at home. Prescribing azithromycin due to multiple antibiotic allergies to treat ear infection. Patient is alert, nontoxic. Will follow up with primary care physician as needed. Discharge Plan Discharge Clinical Impression: Bilateral acute otitis media Patient Disposition: Home Condition: Stable Instructions: Antibiotic Form, Ear Infection (ED) Additional Instructions: take antibiotic as prescribed until gone. Take codeine and Septra own as needed for nausea and vomiting. This medication may cause constipation. Take ibuprofen or Tylenol every 6-8 hours as needed for pain. Drink plenty of water and rest. See your doctor if symptoms are not improving. Patient Language: Amharic Prescriptions: New azithromycin 250 mg tablet See Rx Instructions .ROUTE .COMPLEX Qty: 6 0RF Rx Instructions: For 250 mg dose pack: take 500 mg today (day 1), then 250 mg for 4 days (days 2-5) ondansetron 4 mg tablet,disintegrating 4 mg PO Q8H PRN (Reason: nausea and vomiting) Qty: 12 0RF No Action varenicline tartrate [Chantix Starting Month Box] 0.5 mg (11)- 1 mg (42) tablets,dose pack See Rx Instructions PO PER PKG DIR Qty: 53 0RF Rx Instructions: PO PER PKG DIR Airsupra 90-80 mcg/actuation HFA aerosol inhaler 2 inh inhalation ONCE Qty: 10.7 0RF Rx Instructions: as a single dose; may repeat up to 6 doses per day (12 inhalations) Follow-up/Referrals: Silvino Nelson MD [Primary Care Provider, Family Practice] Stand Alone Forms: Work/School Release IP Time of Disposition: 10:58
[2025-05-29] MEDS: ONDANSETRON HCL ODT 4 MG TABLET SUBLINGUAL (10:35)
[2025-05-29 10:49] LABS: EDCOVIDSCREEN Negative (Negative); EDINFLUASCREEN Negative (Negative); EDINFLUBSCREEN Negative (Negative)
== END 2025-05-29 11:07 | disposition home or self-care (01) ==
PROVIDERS: Emergency Provider Nurse Practitioner Family; PCP Family Medicine
DX: H66.93 Otitis media, unspecified, bilateral (principal); F17.210 Nicotine dependence, cigarettes, uncomplicated; Z20.822 Contact with and (suspected) exposure to COVID-19
CPT/HCPCS: 87426; 87804; 99213; A9270; G0463

== ENCOUNTER 2025-09-21 00:05 | Emergency (ER) | payer OTHER, SELFPAY ==
--- NOTE | ~2025-09-21 | US_ITS ---
EXAMINATION: US transvaginal DATE: 09/21/2025 04:23 INDICATION: Right lower quadrant abdominal pain. TECHNIQUE: Multiple transabdominal transvaginal sonographic images of the pelvis were obtained. COMPARISON: CT abdomen and pelvis 09/21/2025 FINDINGS: The uterus measures 6.5 x 4.0 x 5.3 cm. There is no free fluid in the pelvis. The endometrial complex measures 11 mm in thickness. The right ovary measures 4.2 x 1.9 x 2.9 cm. There is a 2.2 cm hemorrhagic cyst in right ovary. The left ovary measures 3.7 x 1.8 x 2.1 cm. There is normal vascular flow in the ovaries. IMPRESSION: 1. 2.2 cm hemorrhagic cyst in right ovary. Reviewed, dictated and finalized at location E. LE CLE[employer]ER
--- NOTE | ~2025-09-21 | CT_ITS ---
EXAMINATION: CT abdomen pelvis w con DATE: 09/21/2025 02:07 INDICATION: Right lower quadrant abdominal pain. TECHNIQUE: Computed tomography (CT) of the abdomen and pelvis was performed with 100 mL Omnipaque 350 intravenous contrast. Automated exposure control and iterative reconstruction technique were employed. The dose-length product was 513.64 mGy-cm. COMPARISON: None. FINDINGS: The visualized portions of lung bases are clear without pneumonia or pleural effusion. The heart size is normal. No pericardial effusion. The liver, gallbladder, spleen, pancreas, adrenal glands, and kidneys are normal. There are no dilated loops of bowel. The appendix is normal. There are no pathologically enlarged lymph nodes. There is no free intraperitoneal fluid. There is an umbilical hernia containing fat. There is mild thoracic and lumbar spondylosis. IMPRESSION: 1. Umbilical hernia containing fat. Reviewed, dictated and finalized at location E. [employer]
--- OUTSIDE RECORDS SUMMARY | 2025-09-21 00:08 | XMS_ITS | Clinical Summary ---
Author Organization [facility] Address [address] [facility] [address] [place] [address] Phone Care Team Providers Care Child Welfare Manager Name Role Phone Provider, None Primary Care [...] Comments Blood Pressure 114/66 09/18/2021 6:35 PM FOUNDRY HAND Pulse 99 09/18/2021 6:35 PM FOUNDRY HAND Temperature 36.4 C (97.6 F) 09/18/2021 1:10 PM FOUNDRY HAND Respiratory Rate 16 09/18/2021 6:35 PM FOUNDRY HAND Oxygen Saturation 100% 09/18/2021 6:35 PM FOUNDRY HAND Inhaled Oxygen Concentration - - Weight 68 kg (150 lb) 09/18/2021 1:10 PM FOUNDRY HAND Height 157.5 cm (5' 2) 09/18/2021 1:10 PM FOUNDRY HAND Body Mass Index 27.44 09/18/2021 1:10 PM FOUNDRY HAND Plan of Treatment Health Maintenance Due Date Last Done Comments Hepatitis C Virus (HCV) Screening 1991 Varicella Immunization (1 of 2 - 13+ 2-dose series) 02/03/2004 Human Papillomavirus (HPV) Immunization (2 - Risk 3-dose series) 03/07/2008 02/08/2008 Hepatitis B Immunization (1 of 3 - 19+ 3-dose series) 2010 Pap Smear 02/03/2012 Cervical Cancer Screening (CCS) 2021 HPV/Cotest 2021 Influenza Immunization (#1) 2025 11/0 10/2018, 07/17/2016 SARS-COV-2 Immunization (3 - 2024- season) 2025 12/18/2020, 09/29/2020 Respiratory Syncytial Virus (RSV) Immunization (Adult) (1 [...] age to complete this topic Insurance MEDICAID [employer] Care Teams Child Welfare Manager Relationship Specialty Start Date End Date Provider, None [place] PCP - General 03/25/21
--- OUTSIDE RECORDS SUMMARY | 2025-09-21 00:08 | XMS_ITS | Patient Health Record ---
Author Organization [facility] Address [address] [place] [address] Care Team Providers Care Scientific Laboratory Supervisor Name Role Phone Jason Lyon Unavailable [phone] Reason For Referral No Information Medications Medication [...] Insured Coverage Start Date Coverage End Date [facility] [address] [place] [address] [id number] HAWK CEBALLOS Self - patient is the insured Medical (General) History Surgical History Surgery Date(Month/Year) Dilation and curettage (02900) 1
--- OUTSIDE RECORDS SUMMARY | 2025-09-21 00:08 | XMS_ITS | Clinical Summary ---
Author Organization [facility] [employer] Address [address] [place] [address] Care Team Providers Care Second Hand Paper Machine Name Role Phone Kay Tijerina APRN-MANAGER PEOPLE Primary Care Provider + Source Comments [facility] [employer],non-owned Affiliates and Associated Physician Practices is amultiple site organization consisting of ambulatory clinics and hospital sitesin [place], [place], [place] and [place]. This disclosure is being madepursuant to the Care Everywhere program and may not contain all information available regarding this patient. Last updated 18.[facility] [employer] Allergies Active Allergy Reactions Criticality Noted Date [...] Ns) 10 MG/ML nasal sprayIndications :Nicotine Dependence [place] 1 (one) spray into each nostril every [...] far. Prefers to complete labs with primary Weld Fitter for insurance coverage. Assures me she will attend primary OB visit today and complete labs. [facility] Plan: 1. Sent with order requisition for bile acids and CMP. Call placed to primary Weld Fitter as well that patient will need these [...] 04/30: EFW: 5%, AC: 4%. Dopplers normal. [facility] Plan: 1. Instructions as previously outlined [...] >155/95, either value. 5. Report to primary Weld Fitter right away if experiencing symptoms of preeclampsia, [...] No current symptoms of preeclampsia. Reassuring testing. [facility] Plan: 1. Instructions as previously outlined by [facility]: Recommend delivery at 37 weeks gestation [...] for diastolic BP's. 4. Report to primary Weld Fitter right away if experiencing symptoms of preeclampsia, [...] gestation-- planning to do once here at [facility] and once at [facility]. 8. Changes in serum laboratory tests or [...] 2 - PCV) 2010 PAP SMEAR 02/03/2012 DEPRESSION SCREENING 10/09/2024 03/26/2024, 09/13/20 23 COVID-19 VACCINE (3 - season) 2025 12/18/2020, 09/29/2020 INFLUENZA VACCINE (#1) 2025 , 10/12/2022, 08/09/2019, [...] HEPATITIS C ANTIBODY Routine 09/18/2023 8:58 AM BASK[employer]BALLS AND FOOTBALLS REVERSER Need for hepatitis C screening test HIV-1 HIV-2 ANTIBODY + HIV P24 AG PANEL Routine 09/18/2023 8:58 AM B[employer]BALLS AND FOOTBALLS REVERSER Screening for HIV without presence of risk factors from Last 3 Months or Most Recently Relevant to Health Maintenance Results * HIV-1 HIV-2 ANTIBODY + HIV P24 AG PANEL ([facility]) (09/18/2023 8:58 AM BASKETBALLS AND FOOTBALLS REVERSER) HIV Antigen/Antibod y 1 & 2 Non-reacti ve Non-react polly 09/18/2023 11:34 AM BASKETBALLS AND FOOTBALLS REVERSER [facility] Comment:No Laboratory eviden ce of HIV infection. Blood BLOOD SPECIMEN / Unknown Lab Venipuncture / Unknown 09/18/2023 8:58 AM BASKETBALLS AND FOOTBALLS REVERSER 09/18/2023 10:11 AM BASKETBALLS AND FOOTBALLS REVERSER Kay Tijerina APRN-MANAGER PEOPLE LAB - CHEMISTRY ORDERABL ES Final Result [facility] [address] [place] [address], [place] [phone] * HEPATITIS C ANTIBODY ([facility]) (09/18/2023 8:58 AM BASKETBALLS AND FOOTBALLS REVERSER) Hepatitis C Antibody Non-react polly Non-reac tive 09/18/2023 11:34 AM BASKETBALLS AND FOOTBALLS REVERSER [facility] Comment:Hepatitis C Antibody screen indicates no serologic evidence of past or current infection with Hepatitis C Virus. Patients with unexplained liver disease who are immunocompromised or suspected of having acute Hepatitis C infection may benefit from Nucleic Acid Test ([facility]) for Hepatitis C Viral RNA to confirm Hepatitis C status. Blood BLOOD SPECIMEN / Unknown Lab Venipuncture / Unknown 09/18/2023 8:58 AM BASKETBALLS AND FOOTBALLS REVERSER 09/18/2023 10:11 AM BASKETBALLS AND FOOTBALLS REVERSER Kay Tijerina APRN-MANAGER PEOPLE LAB - CHEMISTRY ORDERABL ES Final Result [facility] [address] [place] [id number], [place] [phone] from Last 3 Months or Most Recently Relevant to Health Maintenance Care Teams Second Hand Paper Machine Relationship Specialty Start Date End Date Kay Tijerina APRN-CNP [address] [phone] PCP - General Nurse Practitioner 09/11/23
--- OUTSIDE RECORDS SUMMARY | 2025-09-21 00:08 | XMS_ITS | Clinical Summary ---
Author Organization [facility] Address [address] [place]: Epic Prelude ADT [place]AKI [place]ALLARDO [address] Care Team Providers Care City Carrier Name Role Phone Unavailable Primary Care Provider [...] Health Maintenance Due Date Last Done Comments DTAP/TDAP/TD VACCINES (1 - Tdap) 2010 HEPATITIS B VACCINES (1 of 3 - 19+ 3-dose series) 01/08 HPV/Cotest (21-29) 02/03/2012 CERVICAL CANCER SCREENING 2021 HPV/Cotest (30-65) 2021 PAP SMEAR 2021 INFLUENZA VACCINE (#1) 2025 06/27/2024 HPV VACCINES (No Doses Required) Completed Insurance RX [facility]
--- OUTSIDE RECORDS SUMMARY | 2025-09-21 00:08 | XMS_ITS | Clinical Summary ---
Author Organization [facility] Address [address] [place] [address] Care Team Providers Care Yard Demurrage Clerk Name Role Phone No, Physician Primary Care Provider [phone] Allergies Active Allergy Reactions Criticality Noted Date [...] able to be found in outside records. [place] Medicaid consents signed on admission 10/09 and will be for interval tubal. Undecided regarding bridge method. # MOF: . Urine drug screen not indicated. Patient informed of results: N/A. # COVID Vaccination Status: Previously received # Disposition: Follow up to be scheduled with primary OB. Desires discharge home today. Gestational hypertension, antepartum 10/06/2022 Overview (10/06/2022): Mild range BP in [facility] 10/05 and reported elevated blood pressures at primary OB the week before prompting start of an antihypertensive. Ruled out for Pre-E 10/05 in [facility] Maternal care for poor growth, third trimester, fetus 1 09/23/2022 Overview (10/05/2022): Toño's is dated by a 17 week ultrasound that was consistent with a sure LMP. Her last baby was [id number] at 35 weeks and continues to be a shorter child. Last growth (at [facility]): 1981g, 7th%ile, AC 11%ile. long bones symmetrically shortened below the 1st %ile but morphologically normal. Skeletal dysplasia thought unlikely but cannot be excluded. S/p counseling 09/23/22 Plan [x] Genetic testing: declines [] Weekly BPP/Dopplers and weekly NST [] Delivery recommended at [id number]. No contraindications to a vaginal delivery. History of pre-eclampsia 09/20/2022 Overview (10/05/2022): Ms Fiugeroa has a history of preeclampsia in her [...] developing childhood asthma as well as sudden infant syndrome (SIDS) in the first 6 months of life. I do recommend cessation of tobacco use and have extensively discussed this with the patient, recognizing that this addiction is rather hard to quit. I have encouraged Toño to utilize the resource of the [employer] Quit Hotline, whose phone number is 5-225-MVDENOW. 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 [...] indicated. Patient informed of results: N/A 6. [facility]: reports signed consents this month, not visualized in the chart. Signed [place] consents 10/09/22. Undecided on bridge contraception, does [...] but cannot be excluded. Previous baby was [id number] at 35 weeks and continues to be a shorter child. Last growth 09/21: 1981g, 7th%ile, AC 11%ile. #gHTN/h/o PreE: pt started on [id number] daily by primary OB in 3T for reported MR BP. Had MR BP in [facility] clinic 10/05 and [facility]. Went to [facility] for r/o PreE and had another MR [...] by her primary, confirmed on ultrasound at [facility] 09/21. Mild, MARYJO 24.9. 1 hour GTT [...] - 130/90. Current headache. Will send to [facility] for rule out preeclampsia. Precautions reviewed and patient amenable to plan. Recommend discontinuing Nifedipine. Polyhydramnios in third trim aditi, not applicable or unspecified fetus 09/20/2022 11/23/19 Overview (10/06/2022): History - Diagnosed on third trimester growth for size>dates by her primary, confirmed on ultrasound at [facility] 09/21. Mild, MARYJO 24.9. 1 hour GTT [...] Overview (10/04/2022): [] Co-management vs. [x] Full [facility] Care; [] Red Team [] Blue Team full CHRISTO to [facility] as of 10/04/22 per Farshad, email to financial team on 10/04-jl Referring Provider: Sixto Madrid [phone]: ultrasounds here, plan for no further visits [...] Date Smoking Tobacco: Every Day Cigarettes 0.3 23 Started: 2002 Smokeless Tobacco: Never Tobacco Cessation:Ready [...] How often do you attend chur or sikhism services? Never 10/11/2022 Do you belong to any clubs o r organizations such as yazidi groups, unions, fraternal or athletic groups, or [...] place to sleep or slept in a [place] health care facility (including now)? 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 Gender Identity Female 09/20/2022 8:08 PM GLASS SILVERER Sexual Orientation Straight 09/20/2022 8: 08 PM GLASS SILVERER Obstetrics History Para Term AB IAB SAB [...] 11/23/2022, 11/16/2021, 11/16/2021 Covid-19 Vaccine (3 - season) 06/09/202509/2021, 09/29/2020 Influenza Vaccine (#1) 2025 , 08/09/2019, [...] Most Recently Relevant to Health Maintenance Insurance [address] [facility] [place] Advance Directives For more information, please contact: [phone] * Full Code (Latest Code Status on File) Date Activated Date Inactivated Comments 10/10/2022 3:19 AM 10/12/2022 8:19 PM * Full Code Date Activated Date Inactivated Comments 10/09/2022 8:34 PM 10/10/2022 3:19 AM Full CPR in ca se of cardiopulmonary arrest Care Teams Yard Demurrage Clerk Relationship Specialty Start Date End Date No, Physician PCP - General 09/23/22
[2025-09-21 00:27] VITALS: BP 139/78; PULSE 103; RESP 16; TEMP 37; O2SAT 100
--- NOTE | 2025-09-21 01:24 | ED.ABDPAIN ---
HPI - Abdominal Pain General Chief Complaint: Abdominal Pain Stated Complaint: lower abd pain Time Seen by Provider: 09/21/25 00:59 History of Present Illness HPI narrative: 35-year-old otherwise healthy female presenting with sudden onset right lower quadrant pain for the last 6 hours. Patient states he was not doing anything particularly strenuous or exertional and then hot sudden-onset sharp stabbing pain her right lower quadrant focally. Did not radiate anywhere. Stated has in some diarrhea shortly thereafter. No blood in the diarrhea. No urinary complaints. Has a history of tubal ligation but still has her ovaries and uterus. No fever, chills, chest pain, shortness a breath. She states that minimal movement and laughing or coughing cause pain her right-sided. Still has her appendix. No other abdominal surgical history. Was otherwise in her normal state of health. Took an ibuprofen without any relief of symptoms. Related Data Allergies Allergy/AdvReac Type Severity Reaction Status Date / Time labetalol Allergy Severe Vomiting Verified 09/21/25 00:32 latex Allergy Mild Rash Verified 09/21/25 00:32 cefdinir Allergy Swelling Verified 09/21/25 00:32 of the Eye amoxicillin AdvReac Intermediate Rash Verified 09/21/25 00:32 clindamycin AdvReac Mild Headache Verified 09/21/25 00:32 Penicillins AdvReac Mild MOUTH SORES Verified 09/21/25 00:32 Review of Systems Review of Systems: As reviewed above in HPI All systems reviewed & are unremarkable except as noted in HPI and below PMFSH Past Medical History Medical History Loss of teeth due to extraction Nausea H/O: depression Anxiety Migraine IBS (irritable bowel syndrome) Surgical History Surgical History H/O bilateral salpingectomy H/O gynecological procedure (~06/2021) Nexplanon removal History of hysteroscopy (~07/05/21) [place] teeth removed Hx of endoscopy H/O local excision of skin lesion Family History Family History Grandparent Hypertension Grandparent Diabetes mellitus Other Bipolar disorder Other Carcinoma of cervix Mother Cyst of breast Social History Social History Smoking packs per day: 0.25 Smoking cigarettes per day: 5.0 Years smoked: 15 Smoking pack-years: 3.75 Smoking status: Current every day smoker Tobacco type: cigarettes and e-cigarettes/vaping Second hand tobacco smoke exposure: Yes Alcohol intake: unknown Substance use: never Living arrangements: with family 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 Mucous membranes moist. NECK: Supple. CHEST: [Clear to auscultation. No respiratory distress.] HEART: [Regular rate and rhythm]. No murmur heard. [Normal peripheral pulses.] ABDOMEN: Soft and nondistended but tender to palpation the right lower quadrant with evidence of some peritonitis with increased pain in same location with minimal movement of the bed or patient. No overlying skin discoloration or masses. Negative Rovsing and psoas sign. EXTREMITIES: Normal range of motion. [No edema.] SKIN: Warm, dry, no rash. NEURO: [No focal deficits]. Alert and oriented [x3.] PSYCH: [Normal mood and affect.] Course Vital Signs Vital signs: Vital Signs Temperature 37.0 C 09/21/25 00:27 Pulse Rate 103 H 09/21/25 00:27 Respiratory Rate 16 09/21/25 00:27 Blood Pressure 139/78 09/21/25 00:27 Pulse Oximetry 100 09/21/25 00:27 Oxygen Delivery Room Air 09/21/25 00:27 Temperature 37.0 C 09/21/25 00:27 Pulse Rate 103 H 09/21/25 00:27 Respiratory Rate 16 09/21/25 00:27 Blood Pressure 139/78 09/21/25 00:27 Pulse Oximetry 100 09/21/25 00:27 Oxygen Delivery Room Air 09/21/25 00:27 MDM MDM Narrative Medical decision making narrative: 35-year-old otherwise healthy female presenting with sudden onset right lower quadrant pain for the last 6 hours. Patient states he was not doing anything particularly strenuous or exertional and then hot sudden-onset sharp stabbing pain her right lower quadrant focally. Did not radiate anywhere. Stated has in some diarrhea shortly thereafter. No blood in the diarrhea. No urinary complaints. Has a history of tubal ligation but still has her ovaries and uterus. No fever, chills, chest pain, shortness a breath. She states that minimal movement and laughing or coughing cause pain her right-sided. Still has her appendix. No other abdominal surgical history. Was otherwise in her normal state of health. Took an ibuprofen without any relief of symptoms. Soft and nondistended but tender to palpation the right lower quadrant with evidence of some peritonitis with increased pain in same location with minimal movement of the bed or patient. No overlying skin discoloration or masses. Negative Rovsing and psoas sign. Mildly tachycardic but afebrile. Otherwise normal vital signs. Suspect possibility of appendicitis, appendix inflammation, abscess, perforation, colitis, diverticulitis less likely. CT with contrast ordered, urinalysis and laboratory studies ordered. She is given fluids and morphine and re-evaluated. Placed on monitor. Lab shows slight leukocytosis, laboratory studies otherwise unremarkable. CT scan shows no acute findings or appendicitis. Patient is still having some pain although tolerable at this time. Focal in the right lower quadrant. Ultrasound ordered to rule out ovarian pathology of torsion at this time. Awaiting results. Ultrasound shows unremarkable ovaries, right-sided probable hemorrhagic 2.2 cm corpus luteal cyst. No acute findings otherwise. Likely source of patient's symptoms. Patient re-evaluated and doing well. Does not want any additional pain medicines. Discussed CT and ultrasound findings and patient is safe going home at this time with regular OB and PCP follow-up. Patient's last cycle was last week. Discussed strict return precautions and given some Toradol for discharge. Safe for discharge at this time. Differential Diagnosis Differential Diagnosis: Suspect possibility of appendicitis, appendix inflammation, abscess, perforation, colitis, diverticulitis less likely. Lab Data [facility] Lab Attestation statement: I personally reviewed the patient's lab results. 09/21/25 01:21 09/21/25 01:21 Labs: Lab Results 09/21/25 09/21/25 Range/Units 01:21 01:27 WBC 13.4 H (4.5-10.0) K/mm3 RBC 4.46 (4.2-5.4) M/mm3 Hgb 13.7 D (12.0-15.0) g/dL Hct 40.3 (37.0-47.0) % MCV 90.4 (80-100) fl MCH 30.7 (26-34) pg MCHC 34.0 (32-36) g/dl RDW 12.8 (11.5-14.5) % Plt Count 250 (150-375) k/mm3 MPV 9.7 (7.4-10.4) fl Immature Gran % (Auto) 0.4 (0-0.5) % Neut % (Auto) 69.0 (45.5-73.1) % Lymph % (Auto) 19.5 (18.3-44.2) % [place] % (Auto) 10.1 H (2.6-8.5) % Eos % (Auto) 0.7 (0-4.4) % Baso % (Auto) 0.3 (0.2-1.2) % Lymph # (Auto) 2.61 (0.9-3.2) K/mm3 [place] # (Auto) 1.4 H (0.1-0.6) K/mm3 Eos # (Auto) 0.1 (0-0.3) K/mm3 Baso # (Auto) 0.0 (0.0-0.1) K/mm3 Abs Immat Gran (auto) 0.06 H (0.00-0.031) K/mm3 Absolute Neuts (auto) 9.3 H (1.3-6.7) K/mm3 Absolute Nucleated RBC 0.000 (0.0-0.012) K/mm3 Nucleated RBC % 0.0 (0.0-0.2) % Sodium 137 (137-145) mmol/L Potassium 4.0 (3.4-5.0) mmol/L Chloride 108 H (98-107) mmol/L Carbon Dioxide 25 (22-30) mmol/L Anion Gap 4 (4-12) mmol/L BUN 11 (7-17) mg/dL Creatinine 0.74 (0.7-1.0) mg/dL Estim Creat Clear Calc 83 ml/min Estimated GFR > 60 (59 - ) Glucose 112 H (65-110) mg/dL Calcium 9.0 (8.4-10.2) mg/dL Total Bilirubin 0.4 (0.2-1.3) mg/dL AST 31 (14-36) U/L ALT 21 (6-35) U/L Alkaline Phosphatase 75 (38-126) U/L Total Protein 7.2 (6.3-8.2) g/dL Albumin 4.3 (3.5-5.1) g/dL Lipase 56 (23-300) U/L Urine Color Yellow (Yellow) Urine Appearance Clear (Clear) Urine pH 7.0 (5.0-9.0) Ur Specific [place] 1.011 (1.001-1.035) Urine Protein Negative (Negative) mg/dL Urine Glucose (UA) Negative (Negative) mg/dL Urine Ketones Negative (Negative) mg/dL Ur Blood (Man) Negative (Negative) Urine Nitrate Negative (Negative) Urine Bilirubin Negative (Negative) Urine Urobilinogen 1.0 (<2.0) mg/dL Leukocyte Esterase Rfl Trace H (Negative) OMEGA/UL Urine RBC 3-5 H (0-2) /hpf Urine WBC 11-20 H (0-3) /hpf Ur Squamous Epith Cells Occasional (Few) /hpf Urine Bacteria None seen /hpf Urine Casts 0-2 POC Urine HCG, Qual Negative (Negative) Imaging Data Attestation: I personally reviewed and interpreted this imaging study as follows: My impression: 2.2 cm corpus luteal hemorrhagic cyst right ovary Discharge Plan Discharge Clinical Impression: Corpus luteum cyst of right ovary Patient Disposition: Home Condition: Stable Instructions: Antibiotic Form, Ovarian Cyst (ED) Additional Instructions: 2.2 right-sided corpus luteal ovarian cyst without any active hemorrhage. Likely source of symptoms. No emergent concerns today. No appendicitis or any free fluid. We have prescribed you some pain medicines to take as needed for symptoms. Return with any emergent concerns otherwise follow-up with regular Ob/PCP Patient Language: Lithuanian Prescriptions: New ketorolac 10 mg tablet 10 mg PO Q8H PRN (Reason: pain) 5 Days Qty: 20 0RF Rx Instructions: maximum total duration of 5 days from all oral, intranasal, or parenteral formulations No Action ondansetron 4 mg tablet,disintegrating 4 mg PO Q8H PRN (Reason: nausea and vomiting) Qty: 12 0RF Airsupra 90-80 mcg/actuation HFA aerosol inhaler 2 inh inhalation ONCE Qty: 10.7 0RF Rx Instructions: as a single dose; may repeat up to 6 doses per day (12 inhalations) Ubrelvy 100 mg tablet 100 mg PO ONCE Qty: 8 2RF Rx Instructions: as a single dose; may repeat once in >=2 hours after first dose if needed varenicline tartrate 1 mg tablet 1 mg PO BID Qty: 180 1RF Follow-up/Referrals: Silvino Nelson MD [Primary Care Provider, Family Practice] Time of Disposition: 05:25
[2025-09-21 01:30] LABS: BEDSIDEPREGUCG Negative (Negative)
[2025-09-21] MEDS: LACTATED RINGERS 1,000 ML 999 ML IV CONT ×2 (01:31)
[2025-09-21] MEDS: MORPHINE SULFATE (*CRX) 4 MG/ML INJ IV PUSH (01:31)
[2025-09-21 01:33] LABS: Hematocrit 40.3 % (37.0-47.0); Hemoglobin 13.7 g/dL (12.0-15.0); Immature Granulocyte Percent A 0.4 % (0-0.5); Lymphocytes Absolute Auto 2.61 K/mm3 (0.9-3.2); Mean Corpuscular HGB Conc 34.0 g/dl (32-36); Mean Corpuscular Hemoglobin 30.7 pg (26-34); Mean Corpuscular Volume 90.4 fl (80-100); Nucleated Red Blood Cells Absolute Auto 0.000 K/mm3 (0.0-0.012); Nucleated Red Blood Cells Perc 0.0 % (0.0-0.2); Platelet Count Result 250 k/mm3 (150-375); Red Blood Count 4.46 M/mm3 (4.2-5.4); White Blood Count 13.4 K/mm3 (4.5-10.0)
[2025-09-21 01:40] LABS: Add Urine Microscopic? YES; Appearance Urine Clear (Clear); Glucose Urine UA Negative (Negative); Leukocyte Esterase Ur Trace LEU/UL (Negative); Nitrate Urine Negative (Negative); Non Pathogenic Casts 0-2; Specific Grav Ur 1.011 (1.001-1.035)
[2025-09-21 01:47] LABS: Alanine Aminotransferase 21 U/L (6-35); Albumin Level 4.3 g/dL (3.5-5.1); Alkaline Phosphatase 75 U/L (38-126); Anion Gap 4 mmol/L (4-12); Aspartate Amino Transferase 31 U/L (14-36); Bilirubin,Total 0.4 mg/dL (0.2-1.3); Blood Urea Nitrogen 11 mg/dL (7-17); Calcium 9.0 mg/dL (8.4-10.2); Carbon Dioxide 25 mmol/L (22-30); Chloride 108 mmol/L (98-107); Estimated CRCL calculation 83 ml/min; Estimated Glomerular Filt Rate > 60; Glucose 112 mg/dL (65-110); Lipase 56 U/L (23-300); Potassium 4.0 mmol/L (3.4-5.0); Sodium 137 mmol/L (137-145); Total Protein 7.2 g/dL (6.3-8.2)
== END 2025-09-21 05:36 | disposition home or self-care (01) ==
PROVIDERS: Emergency Provider Student in an Organized Health Care Education/Training Program; PCP Family Medicine
DX: N83.11 Corpus luteum cyst of right ovary (principal); F17.210 Nicotine dependence, cigarettes, uncomplicated; F17.290 Nicotine dependence, other tobacco product, uncomplicated; Z90.79 Acquired absence of other genital organ(s)
CPT/HCPCS: 36415; 74177; 76830; 80053; 81001; 81025; 83690; 85025; 87086; 96361; 96374; 99284; J2270; J7120; Q9967